=== PATIENT | male | born 1930 | race Caucasian/White ===

== ENCOUNTER 2017-02-24 06:31 | Inpatient (IN) ==
[~2017-02-24 06:31] MED LIST: GLYCOPYRROLATE 0.4 MG/2 ML VIAL IM ONE; LIDOCAINE 1% 20 ML VIAL MISC INJ PRN; MEPERIDINE 50 MG/1 ML VIAL IM ONE; MIDAZOLAM 2 MG/2 ML VIAL IV PRN; PROMETHAZINE 25 MG/1 ML VIAL IM ONE
[2017-02-24] MEDS ORDERED: MEPERIDINE 50 MG/1 ML VIAL ONE (07:19)
[2017-02-24] MEDS ORDERED: GLYCOPYRROLATE 0.4 MG/2 ML VIAL ONE (07:19)
[2017-02-24] MEDS ORDERED: PROMETHAZINE 25 MG/1 ML VIAL ONE (07:19)
[2017-02-24] MEDS ORDERED: EPINEPHrine 1 MG/10 ML SYRINGE ET ONE (08:40)
--- NOTE | 2017-02-24 08:57 | Operative Note ---
Date of procedure: 02/24/17 (Fiberoptic bronchoscopy with brushings and transbronchial biopsies left lower lobe) Pre-op diagnosis: Lung mass rule out carcinoma Post-op diagnosis: same Procedure: After an appropriate timeout to be sure we were dealing with Kelechi Gardner, the patient was topically anesthetized the nose and nasopharynx with Xylocaine. He had been given intramuscular preoperative medication in same day surgery. 3 L of nasal oxygen was placed in the right naris. The fiberoptic bronchoscope was introduced via the left naris. Patient was given 2 mg of Versed intravenously to the point of sedation. Vocal cords were identified and noted to function normally with phonation. After further topical anesthesia the trachea was entered and was free of lesions. The donald was sharp. There were some increased secretions in both lower lobes. These were irrigated and removed. I inspected the superior segments on both sides. The densities area on his CT was in the superior segment of the left lower lobe. We selected that side to do brushings. We obtained to brushings. We then did 2 transbronchial biopsies. After the second transbronchial biopsy there was a moderate amount of bleeding. We do scope to pressure, I saline, and topical epinephrine and got the bleeding to subside. However he was still coughing up some blood at the end of the procedure. For that reason we will admit him for observation. Patient was alert and answering questions and denied shortness of breath at the end of the procedure. Chest x-ray postprocedure showed the superior segment left lower lobe infiltrate to be larger. No other acute changes and no pneumothorax. Anesthesia: conscious sedation Surgeon / Physician: Oscar Aparicio Estimated blood loss: other (Moderate amount of bleeding post transbronchial biopsy) Specimens: other (Transbronchial biopsy 2 left lower lobe, bronchial washings, brushings left lower lobe) Condition: stable Disposition: ICU Discharge Plan - Discharge Medications No Action RX: Albuterol Inhaler [Proventil Inhaler] 2 puff INH Q4HR PRN PRN Reason: Shortness Of Breath RX: Ipratropium/Albuterol Sulfate [Iprat-Albut 0.5-3(2.5) mg/3 ml] 3 ml IH TID RX: [place]-3 Fatty Acids [Fish Oil Concentrate] 1,000 mg PO BID RX: Multivit-Min/FA/Lycopen/Lutein [Centrum Silver Tablet] 1 each PO DAILY RX: Gabapentin 300 mg PO BEDTIME RX: Famotidine 40 mg PO BEDTIME RX: Donepezil [Aricept] 10 mg PO BEDTIME RX: Aspirin [Ecotrin] 81 mg PO DAILY@1700 RX: Amiodarone Tab [Cordarone Tab] 200 mg PO DAILY RX: amLODIPine [Norvasc] 5 mg PO DAILY Areds11 1 tablet PO BID RX: Polyvinyl Alcohol 1.4% Oph Alva [Artificial Tears Oph Soln] 1 drop BOTH EYES QID PRN PRN Reason: Dry Eyes RX: Montelukast Sodium 10 mg PO DAILY Polycarbophil [Fibercon] 625 mg PO DAILY PRN PRN Reason: Constipation RX: Lutein 40 mg PO DAILY Budesonide/Formoterol 160-4.5 [Symbicort 160-4.5] 2 puff INH BID Acetaminophen Tab [Tylenol Tab] 500 mg PO 5X DAILY Melatonin/Pyridoxine HCl (B6) [Melatonin 3 mg Tablet] 2 each PO BEDTIME amLODIPine [Norvasc] 5 mg PO DAILY W/SUPPER Loratadine [Claritin] 10 mg PO DAILY RX: Furosemide Tab [Lasix Tab] 80 mg PO DAILY - Follow Up or Referral - Forms/Instructions
[2017-02-24] MEDS ORDERED: ACETAMINOPHEN 325 MG TABLET PO PRN (08:59)
[2017-02-24] MEDS ORDERED: ONDANSETRON 4 MG/2 ML VIAL IV PRN (08:59)
[2017-02-24] MEDS ORDERED: ALBUTEROL 2.5 MG/3 ML NEB RESP TX PRN (08:59)
[2017-02-24] MEDS ORDERED: guaiFENesin/DM ER 600-30 MG TABLET PO PRN (08:59)
--- NOTE | 2017-02-24 09:08 | Pulmonology History & Physical ---
Assessment and Plan (1) Bilateral lower lobe lung mass Status: Acute Assessment and plan: He was brought in for outpatient bronchoscopy with biopsy which was done on the left side. He had some hemoptysis following the procedure and were watching him for that reason. The lesion looks like a possible bronchogenic carcinoma on the CT scan. He also had an area on the right lung. This could be a bilateral pneumonia. Could be a bronchoalveolar cell. Await pathology. Current Visit: Yes (2) Hemoptysis secondary to biopsy Status: Acute Assessment and plan: At the present time this has subsided. Needs to be watched carefully however. Current Visit: Yes (3) Acute exacerbation of chronic obstructive airways disease Status: Acute Assessment and plan: Treat with bronchodilators and oxygen. Will put on empiric antibiotics. Current Visit: No (4) Pneumonia Status: Acute Assessment and plan: This started as what looked like pneumonia. Difficult to tell if this is an unresolved pneumonia versus lung mass. Current Visit: No (5) CKD (chronic kidney disease) stage 4, GFR 15-29 ml/min Status: Chronic Assessment and plan: We will get follow-up chemistries in the morning. Current Visit: No 12 point system: reviewed and no additional remarkable complaints except as stated - Constitutional Constitutional: Present: fatigue, weakness - EENT Ears: Present: decreased hearing (Wears hearing aid) - Cardiovascular Cardiovascular: Present: palpitations (Has atrial fibrillation) - Respiratory Respiratory: Present: dyspnea, hemoptysis, dyspnea on exertion - Genitourinary Genitourinary: Present: other (Renal insufficiency) History of Present Illness Chief complaint: Hemoptysis post-bronchoscopy History of present illness: Mr. Gardner is a 86 year old male was referred by Dr. De Anda because of unresolved bilateral lower lobe infiltrates that looks like possible carcinoma on CT scan. We brought him in for bronchoscopy this morning and he had 2 transbronchial biopsies of the superior segment of the left lower lobe. Following that he bled moderately. We were able to get the bleeding stopped with scope tip pressure, I saline, and topical epinephrine however he has an enlarged area of infiltrate in the left mid lung in the area of the superior segment and is still coughing up blood. I felt we should at least watch him overnight. He does have COPD with an FEV1 about one half normal. His oxygen saturation has been acceptable on 4 L nasal oxygen his O2 sat of about 93%. Patient is a former smoker. He quit smoking more than 10 years ago. He had been treated with Cipro for about a week. Off antibiotics at the present time. Patient has a pacemaker atrial fibrillation but he only takes baby aspirin not on any anticoagulants. Home Medications Medication Instructions Recorded Confirmed Type Albuterol Inhaler [Proventil 2 puff INH Q4HR PRN 12/22/15 02/24/17 History Inhaler] Amiodarone Tab [Cordarone Tab] 200 mg PO DAILY 12/22/15 02/24/17 History Aspirin [Ecotrin] 81 mg PO DAILY@1700 12/22/15 02/24/17 History Donepezil [Aricept] 10 mg PO BEDTIME 12/22/15 02/24/17 History Famotidine 40 mg PO BEDTIME 12/22/15 02/24/17 History Gabapentin 300 mg PO BEDTIME 12/22/15 02/24/17 History Ipratropium/Albuterol Sulfate 3 ml IH TID 12/22/15 02/24/17 History [Iprat-Albut 0.5-3(2.5) mg/3 ml] Multivit-Min/FA/Lycopen/Lutein 1 each PO DAILY 12/22/15 02/24/17 History [Centrum Silver Tablet] [place]-3 Fatty Acids [Fish Oil 1,000 mg PO BID 12/22/15 02/24/17 History Concentrate] Areds11 1 tablet PO BID 02/04/16 02/24/17 History Polyvinyl Alcohol 1.4% Oph Alva 1 drop BOTH EYES QID PRN 02/04/16 02/24/17 History [Artificial Tears Oph Soln] amLODIPine [Norvasc] 5 mg PO DAILY 02/04/16 02/24/17 History Budesonide/Formoterol 160-4.5 2 puff INH BID 10/05/16 02/24/17 History [Symbicort 160-4.5] Montelukast Sodium 10 mg PO DAILY 10/05/16 02/24/17 History Acetaminophen Tab [Tylenol Tab] 500 mg PO 5X DAILY 02/23/17 02/24/17 History Furosemide Tab [Lasix Tab] 80 mg PO DAILY 02/23/17 02/24/17 History Loratadine [Claritin] 10 mg PO DAILY 02/23/17 02/24/17 History Lutein 40 mg PO DAILY 02/23/17 02/24/17 History Melatonin/Pyridoxine HCl (B6) 2 each PO BEDTIME 02/23/17 02/24/17 History [Melatonin 3 mg Tablet] Polycarbophil [Fibercon] 625 mg PO DAILY PRN 02/23/17 02/24/17 History amLODIPine [Norvasc] 5 mg PO DAILY W/SUPPER 02/23/17 History Allergies Allergy/AdvReac Type Severity Reaction Status Date / Time No Known Allergies Allergy Verified 12/30/15 15:59 Medical,Surgical,& Family Hx - Medical History Cardio: History of: Cardiac Dysrhythmia (SLOW HEART BEAT.), Hypertension ([place]. MEDICALLY), Pacemaker, Cardiovascular Problems (AFIB HAD CARDIOVERSION IN 2013.DR MAURER) Psychological: History of: Anxiety Disorders ([place]. MEDICALLY), Depression No history of: ADHD, Behavior Problems, Bipolar Disorder, Previous Suicide Attempt, Psychiatric/Substance Abuse Tx, Schizophrenia, Violent Behavior, Psychiatric Problems Neurology: No history of: Seizures HEENT: History of: Ear Problem (hard of hearing), Eye Problem (CATARACTS REMOVED FROM BOTH EYES W/ LENS IMPLANTS.), HEENT Problems (MACULAR DEGENERATION) Respiratory: History of: COPD ([place]. INHALER AND NEBS.) Renal: History of: Renal Failure (HX), Renal Problems (CKD) Genitourinary: History of: Problems (urinary stricture) Gastrointestinal: History of: GI Problems (VA SAID HE HAD DIARRHEA AND IS ON LOMOTIL.) Musculoskeletal: History of: Back/Neck Problems, Degenerative Disk Disease No history of: Amputation Hematology: History of: Anemia - Surgical History Thoracic Surgeries: Patient denies;: Organ Transplant, Lobectomy Neurologic Surgeries: Patient denies: Neurologic Surgery HEENT Surgeries: Surgical HX of: Eye Surgery (CATARACT SURGERIES X 2.), Tonsilectomy & Adenoidectomy (60 YEARS AGO.) Patient denies: Thyroid Surgery Abdominal Surgeries: Surgical HX of: Appendectomy (JUN 2014. RUPTURE. SURGERY.) , Colonoscopy (NEGATIVE. SEVERAL YEARS AGO.) Reproductive Surgeries: Patient denies;: Genitourinary Surgery Orthopedic Surgeries: Patient denies;: Implanted Devices, Orthopedic Surgery, Spinal Surgery, Total Hip Replacement, Total Knee Replacement - Family History Family History: Reports;: Family Cancer (DAUGHTER HAS COLON CANCER, OVARIAN CANCER, LUNG CANCER BROTHERS.) Denies;: Family Anesthesia Reaction, Family Diabetes, Family Heart Disease, Family Hypertension, Family Psychiatric Problems, Family Stroke - Social History Smoking Status: Former smoker Frequency of Alcohol Use: None Type of Drug Use: None Quality Measures - VTE Contraindication to Pharmacological VTE Prophylaxis: Active Bleeding Exam (Pulmonay) H&P - Constitutional Vitals: Period Temp Pulse Resp BP Sys/Hackett Pulse Ox Last 24 Hr 97.8 F 60-67 17-20 158-181/76-84 94-98 Exam: Patient is alert although a little drowsy from his preoperative medication. Vital signs normal. O2 sat 93% on 4 L. Pupils react to light. Throat is clear. Neck is supple no bruits. Chest reveals some rhonchi at the left base and prolonged expiratory phase. Heart irregular without murmur. Abdomen soft nontender no masses. Extremities no clubbing cyanosis or edema. Calves nontender.
--- NOTE | 2017-02-24 09:18 | XRay Report ---
Portable chest Date: 02/24/2017 Clinical history: Post bronchoscopy Comparison: 02/04/2016 Technique: Portable AP sitting chest Findings: Stable cardiomegaly with left subclavian atrioventricular pacemaker. Irregular left hilar mass with adjacent diffuse parenchymal findings. Additional progressive parenchymal findings at the left lung base. Small right pleural effusion. No pneumothorax. Degenerative changes are noted. Impression: Stable cardiomegaly with left subclavian atrioventricular permanent pacemaker. Irregular 83 mm left hilar mass with adjacent atelectasis/infiltration. 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 Additional indeterminate diffuse parenchymal findings at the right lung base with small right pleural effusion. No pneumothorax. PROCEDURE INTERPRETED AT [facility] DEPARTMENT OF RADIOLOGY Final Report Signed by: Dr. Candace Chilel
[2017-02-24] MEDS ORDERED: MIDAZOLAM 2 MG/2 ML VIAL ONE (09:27)
[2017-02-24] MEDS: cefTRIAXone 1,000 MG in SODIUM CHLORIDE 0.9% 100 ML IV SCH (10:30)
[2017-02-24] MEDS: SODIUM CHLORIDE 0.45% 1,000 ML IV SCH (10:30)
[2017-02-24] MEDS ORDERED: EPINEPHrine 1 MG/ML VIAL ONE (10:32)
[2017-02-24] MEDS: ALBUTEROL/IPRATROPIUM 3 ML NEB RESP TX SCH ×3 (12:22→23:32)
[2017-02-24] MEDS: FAMOTIDINE 20 MG TABLET PO SCH (20:43)
[2017-02-24] MEDS: amLODIPine 5 MG TABLET PO SCH (20:43)
[2017-02-24] MEDS: BUDESONIDE/FORMOTEROL 160-4.5 INHALER 6 GM INH SCH (20:44)
[2017-02-25] MEDS: SODIUM CHLORIDE 0.45% 1,000 ML IV SCH (04:52)
[2017-02-25 05:57] LABS: Basophils % 0.4 % (0.0-0.8); Eosinophils # 0.1 10*3/uL (0.0-0.87); Eosinophils % 0.9 % (0.00-10.9); Hematocrit 31.1 VOL% (42.0-52.0); Hemoglobin 10.3 GM/DL (14.0-18.0); Immature Granulocytes % 0.6 %; Immature Granulocytes Absolute 0.06 #; Lymphocytes # 1.3 10*3/uL (1.4-4.0); Lymphocytes % 12.8 % (21.2-54.2); Mean Corpuscular HGB Conc 33.1 GM/DL (32-36); Mean Corpuscular Hemoglobin 29 PG (27-34); Mean Corpuscular Volume 88.1 FL (87-102); Monocytes # 0.7 10*3/uL (0.11-0.8); Monocytes % 7.3 % (1.7-12.7); Neutrophils # 7.8 10*3/uL (1.4-7.4); Platelet Count 199 T/CUMM (130-400); Red Blood Count 3.53 MC/CUMM (3.8-5.5); Red Cell Distribution Width 14.7 % (9.3-17.3)
[2017-02-25] MEDS: ALBUTEROL/IPRATROPIUM 3 ML NEB RESP TX SCH (06:34)
[2017-02-25 06:40] LABS: Calcium 8.5 MG/DL (8.5-10.1); Osmolality,Calculated 287.3 MOS/KG (273-304); Potassium 4.2 MMOL/L (3.5-5.1)
--- NOTE | 2017-02-25 07:58 | Pulmonology Progress Note ---
Pulmonary - PN: Subj Interval history: This 86-year-old white male who had a fiberoptic bronchoscopy on 02/24/2017. Dr. Aparicio did transbronchial biopsies and the patient had problems with bleeding. As a precaution he was kept overnight. He has had no more bleeding he is done well and his chest x-ray is stable. Patient is asymptomatic and he wants to go home. Patient was covered with Rocephin and Zosyn post bronchoscopy. I am going to send him home on Keflex 500 4 times daily for 5 days. Patient will have follow-up appointment with Dr. Aparicio. He will continue his home medicines per Exam (Progress Note) - Constitutional Vitals: Period Temp Pulse Resp BP Sys/Hackett Pulse Ox Last 24 Hr 97.8 F-99.0 F 60-87 13-24 153-188/55-101 90-100 Results - Labs CBC & BMP: 02/25/17 05:07 02/25/17 05:07
[2017-02-25] MEDS: amLODIPine 5 MG TABLET PO SCH (08:25)
[2017-02-25] MEDS: BUDESONIDE/FORMOTEROL 160-4.5 INHALER 6 GM INH SCH (08:25)
[2017-02-25] MEDS: FAMOTIDINE 20 MG TABLET PO SCH (08:25)
[2017-02-25] MEDS: cefTRIAXone 1,000 MG in SODIUM CHLORIDE 0.9% 100 ML IV SCH (08:30)
[2017-02-25] MEDS ORDERED: DONEPEZIL 10 MG TABLET PO SCH (09:00)
[2017-02-25] MEDS ORDERED: AMIODARONE 200 MG TABLET PO SCH (09:00)
[2017-02-25] MEDS ORDERED: GABAPENTIN 300 MG CAPSULE PO SCH (09:00)
--- NOTE | 2017-02-25 10:06 | XRay Report ---
Exam: XR chest 1V portable Indication: Shortness of breath Comparison study: - 8:40 AM Findings: Cardiac silhouette is mildly enlarged, similar to prior. Left perihilar opacities likely representing focal pneumonia are similar. There are also patchy basilar opacities which appear similar to prior. Left chest pacemaker device is in similar position. There is no pneumothorax. Impression: Overall similar appearance of the chest with probable patchy left perihilar and right basilar infectious/inflammatory infiltrates. Underlying soft tissue lesions (especially in the left hilar region) are difficult to exclude. Follow-up until resolution is recommended. PROCEDURE INTERPRETED AT [facility] DEPARTMENT OF RADIOLOGY Final Report Signed by: Jerod Hernandez
[2017-02-25 10:07] VITALS: BP 167/64
--- NOTE | 2017-02-27 12:15 | Pathology Report from [facility] ---
[facility] ACCESSION # : [id number] PATIENT NAME : Kelechi Gardner ORDERING DR : FOSTER MARTELL MD CLINICAL HX: Lung Mass, COPD POST-OP DX: Same SPECIMEN INFO: Washing,Bronchial,LLL - 5 mls bloody with clots CLASS: III CLASS COMMENTS: Reactive respiratory cells and some atypical cellsCELL BLOCK: Same CLASS LEGEND: CLASS 0 Material inadequate for diagnosis because of (see comment) CLASS I Absence of atypical or abnormal cells CLASS II Atypical Cytology but no evidence of malignancy CLASS III Cytology suggestive of but not conclusive for malignancy CLASS IV Cytology strongly suggestive of malignancy CLASS V Cytology conclusive for malignancy COLLECTED DATE: 02/24/2017 [facility] REPORT DATE: 02/27/2017 ELECTRONICALLY SIGNED BY: Marisol Garcia M.D. 02/27/2017 - 9:09:24 KATHYA
--- NOTE | 2017-02-27 12:16 | Pathology Report from [facility] ---
[facility] ACCESSION # : [id number] PATIENT NAME : Kelechi Gardner ORDERING DR : FOSTER MARTELL MD CLINICAL HX: Lung Mass, COPD POST-OP DX: Same SPECIMEN INFO: Brushing,Brocnhial,LLL - 2 brushes (Received in Cytolyt). CLASS: II CLASS COMMENTS: Reactive respiratory cellsCELL BLOCK: Same CLASS LEGEND: CLASS 0 Material inadequate for diagnosis because of (see comment) CLASS I Absence of atypical or abnormal cells CLASS II Atypical Cytology but no evidence of malignancy CLASS III Cytology suggestive of but not conclusive for malignancy CLASS IV Cytology strongly suggestive of malignancy CLASS V Cytology conclusive for malignancy COLLECTED DATE: 02/24/2017 [facility] REPORT DATE: 02/27/2017 ELECTRONICALLY SIGNED BY: Marisol Garcia M.D. 02/27/2017 - 9:13:20 MTDVickie
--- NOTE | 2017-02-27 16:17 | Pathology Report from [facility] ---
[facility] ACCESSION # : [id number] PATIENT NAME : Terrence Gardner ORDERING DR : FOSTER MARTELL MD CLINICAL HX: Lung mass - COPD POST-OP DX: Same SPECIMEN INFO: Left lower lobe lung, biopsy x 2 GROSS DESCRIPTION: Received in formalin labeled TERRENCE GARDNER & LLL is a 0.3 x 0.2 cm hyperemic coleman tissue fragment submitted in one cassette. DIAGNOSIS FOR TERRENCE GARDNER: LUNG, LEFT LOWER LOBE, ENDOBRONCHIAL BIOPSY: Benign alveolar lung tissue, no tumor seen. COLLECTED DATE: 02/26/2017 [facility] REPORT DATE: 02/27/2017 ELECTRONICALLY SIGNED BY: Joao Chew M.D. 02/27/2017 - 9:39:30 [facility]
== END 2017-02-25 10:37 | disposition home or self-care (01) | DRG 166 ==
LOC: N.SDSINP 06:31 → N.PULM 06:31 → N.SDSINP 09:00 → N.CC 09:25 → EDSDCBED 09:25 → N.PULM 02-25 10:37 → UNDODEPSDC 02-27 16:00
PROVIDERS: ADMIT Internal Medicine Pulmonary Disease; ATTEND Internal Medicine Pulmonary Disease
PROC: BRONCHB (2017-02-24 07:20)

== ENCOUNTER 2017-04-17 09:08 | Inpatient (IN) ==
[~2017-04-17 09:08] MED LIST changes: -GLYCOPYRROLATE 0.4 MG/2 ML VIAL IM ONE; -LIDOCAINE 1% 20 ML VIAL MISC INJ PRN; +LIDOCAINE 100 MG/5 ML SYRINGE ONE; -MEPERIDINE 50 MG/1 ML VIAL IM ONE; -MIDAZOLAM 2 MG/2 ML VIAL IV PRN; -PROMETHAZINE 25 MG/1 ML VIAL IM ONE; +PROPOFOL 200 MG/20 ML VIAL IV ONE
[2017-04-17] MEDS ORDERED: ALBUTEROL/IPRATROPIUM 3 ML NEB RESP TX STA (09:21)
[2017-04-17] MEDS ORDERED: methylPREDNISolone SOD SUC 125 MG/2 ML VIAL IV STA (09:21)
[2017-04-17] MEDS ORDERED: methylPREDNISolone SOD SUC 125 MG/2 ML VIAL ONE (09:42)
--- NOTE | 2017-04-17 10:08 | Emergency Department Note ---
Kirt Nuñez Brooke, am scribing for, and in the presence of, Elio Fernandez MD 09:26 . Rebecca Nuñez James D, MD, personally performed the services described in this documentation, ascribed by Caitlin Moralez in my presence, and it is both accurate and complete 927 . Arrival - Arrival Chief Complaint: Shortness of Breath Stated Complaint: SOB ED Nursing Triage Note: Pt c/o SOB since Mode of Arrival: Wheelchair Limitations: No Limitations Source: Patient, Family, RN Notes Reviewed Time Seen by Provider: 04/17/17 09:19 - History of Present Illness HPI Narrative: Patient is a 86 year old male who presents to the ED with c/o shortness of breath that has been ongoing for the past three days. Patient says the shortness of breath has worsened. He has home oxygen that he uses at night. Patient denies having any fever, cough, or chest pain. He saw his Primary Care Provider, on , and was given a shot and prescription for Cipro to treat bronchitis. Patient has PMHx of afib, HTN, pacemaker, anxiety, depression, COPD , pneumonia(three months ago), renal failure, urinary stricture, CKD, arthritis , GERD, anemia, back/neck problems, and degenerative disk disease. Patient's Final Inspection Supervisor is Dr. Maurer. He quit smoking about 15 years ago. Onset (ago): day(s) (3) Allergies/Adverse Reactions: Allergies Allergy/AdvReac Type Severity Reaction Status Date / Time No Known Allergies Allergy Verified 12/30/15 15:59 Home Medications: Home Medications Medication Instructions Recorded Confirmed Type Amiodarone Tab [Cordarone Tab] 200 mg PO DAILY 12/22/15 04/17/17 History Donepezil [Aricept] 10 mg PO BEDTIME 12/22/15 04/17/17 History Famotidine 40 mg PO BEDTIME 12/22/15 04/17/17 History Gabapentin 300 mg PO BEDTIME 12/22/15 04/17/17 History [place]-3 Fatty Acids [Fish Oil 500 mg PO BID 12/22/15 04/17/17 History Concentrate] Polyvinyl Alcohol 1.4% Oph Alva 1 drop BOTH EYES QID PRN 02/04/16 04/17/17 History [Artificial Tears Oph Soln] amLODIPine [Norvasc] 5 mg PO BID 02/04/16 04/17/17 History Budesonide/Formoterol 160-4.5 2 puff INH BID 10/05/16 04/17/17 History [Symbicort 160-4.5] Montelukast Sodium 10 mg PO DAILY 10/05/16 04/17/17 History Furosemide Tab [Lasix Tab] 40 mg PO DAILY 02/23/17 04/17/17 History Lutein 40 mg PO BEDTIME 02/23/17 04/17/17 History Melatonin/Pyridoxine HCl (B6) 2 each PO BEDTIME 02/23/17 04/17/17 History [Melatonin 3 mg Tablet] Polycarbophil [Fibercon] 625 mg PO DAILY PRN 02/23/17 04/17/17 History Aspirin [Ecotrin] 81 mg PO BEDTIME 04/17/17 04/17/17 History Ciprofloxacin Tab [Cipro Tab] 250 mg PO BID 04/17/17 04/17/17 History Ipratropium/Albuterol Sulfate 3 ml IH TID 04/17/17 04/17/17 History [Iprat-Albut 0.5-3(2.5) mg/3 ml] Loratadine Tab [Claritin Tab] 10 mg PO DAILY 04/17/17 04/17/17 History Multivitamin with Iron 1 each PO DAILY 04/17/17 04/17/17 History [Multivitamins with Iron] Mv-Min/FA/Vit K/Lycop/Lut/Zeax 1 each PO BID 04/17/17 04/17/17 History [Ocuvite Eye + Multi Tablet] Review of System - Review of System 12 point system: reviewed and no additional remarkable complaints except as stated - Review of System Constitutional: Absent: fever Respiratory: Present: other (shortness of breath). Absent: cough, respiratory distress Cardiovascular: Absent: chest pain Skin: Absent: rash Medical,Surgical,& Family Hx - Medical History Cardio: History of: Cardiac Dysrhythmia (SLOW HEART BEAT.), Hypertension ([place]. MEDICALLY), Pacemaker, Cardiovascular Problems (AFIB HAD CARDIOVERSION IN 2013.DR MAURER) Psychological: History of: Anxiety Disorders ([place]. MEDICALLY), Depression No history of: ADHD, Behavior Problems, Bipolar Disorder, Previous Suicide Attempt, Psychiatric/Substance Abuse Tx, Schizophrenia, Violent Behavior, Psychiatric Problems Neurology: No history of: Seizures HEENT: History of: Ear Problem (hard of hearing), Eye Problem (CATARACTS REMOVED FROM BOTH EYES W/ LENS IMPLANTS.), HEENT Problems (MACULAR DEGENERATION) Rheumatology: History of;: Rheumatological Problems (Arthritis) Respiratory: History of: COPD ([place]. INHALER AND NEBS.), Pneumonia, Respiratory Problems (Bronch with lung Bx) Renal: History of: Renal Failure (HX), Renal Problems (CKD) Genitourinary: History of: Problems (urinary stricture) Gastrointestinal: History of: GERD, GI Problems ([place] SAID HE HAD DIARRHEA AND IS ON LOMOTIL.) Musculoskeletal: History of: Back/Neck Problems, Degenerative Disk Disease No history of: Amputation Hematology: History of: Anemia - Surgical History Thoracic Surgeries: Patient denies;: Organ Transplant, Lobectomy Neurologic Surgeries: Patient denies: Neurologic Surgery HEENT Surgeries: Surgical HX of: Eye Surgery (CATARACT SURGERIES X 2.), Tonsilectomy & Adenoidectomy (60 YEARS AGO.) Patient denies: Thyroid Surgery Abdominal Surgeries: Surgical HX of: Appendectomy (JUN 2014. RUPTURE. SURGERY.) , Colonoscopy (NEGATIVE. SEVERAL YEARS AGO.), EGD Reproductive Surgeries: Patient denies;: Genitourinary Surgery Orthopedic Surgeries: Patient denies;: Implanted Devices, Orthopedic Surgery, Spinal Surgery, Total Hip Replacement, Total Knee Replacement - Family History Family History: Reports;: Family Cancer (DAUGHTER HAS COLON CANCER, OVARIAN CANCER, LUNG CANCER BROTHERS.) Denies;: Family Anesthesia Reaction, Family Diabetes, Family Heart Disease, Family Hypertension, Family Psychiatric Problems, Family Stroke - Social History Smoking Status: Former smoker Exam Vital Signs: Vital Signs Temperature 97.5 F L 04/17/17 09:20 Pulse Rate 60 04/17/17 10:30 Respiratory Rate 23 04/17/17 10:30 Blood Pressure 169/54 04/17/17 10:30 O2 Sat by Pulse Oximetry 96 04/17/17 10:30 GENERAL: This is a well-nourished well-developed white male, chronically and acutely ill-appearing, in no apparent distress. VITAL SIGNS: Reviewed HEENT: Head is atraumatic and normocephalic. Pupils are equal round react to light. Extraocular movements are intact. Oropharynx is benign with moist mucous membranes. NECK: Neck is soft and supple without tenderness. There are no masses. There is no lymphadenopathy. LUNGS: Decreased breath sounds in all lung villegas with prolonged expiratory phase. Patient has supraclavicular, intercostal, and substernal retractions. Chest rises symmetrically. There is no chest wall tenderness. CV: Heart is regular rate and rhythm without murmurs rubs or gallops. ABDOMEN: Abdomen is soft, nontender to palpation. There are no abdominal abnormal masses palpated. There is no organomegaly. Bowel sounds are present and active. SKIN: Skin is warm and dry. No rash. EXTREMITIES: Patient has full range of motion without tenderness. There is no pedal edema. NEUROLOGIC: Awake alert and oriented 4. Cranial nerves II through XII are grossly intact. Motor is 5 over 5 in all extremities bilaterally. Course Course Narrative: Patient was placed on O2, 2 L nasal biprong, given an albuterol nebulization, and given Solu-Medrol IV upon arrival. The patient seemed to have some improvement. - Consultations Consultation #1: Discussed with hospitalist. Patient will be admitted to their service. Time: 10:48 Procedures - ABG Interpretation ABG Interpretation 1 Interpretation: abnormal, other (Acute respiratory failure) Results - Labs CBC & BMP: 04/17/17 09:22 04/17/17 09:22 Lab Results: I have reviewed the patients labs Labs: Laboratory Tests 04/17/17 04/17/17 09:21 09:22 ABG pH 7.382 ABG pCO2 32.5 L ABG pO2 65.8 L ABG HCO3 20.3 ABG Total CO2 17.1 L ABG O2 Saturation 93.3 L ABG Base Excess -4.9 L Troponin I < 0.015 - EKG EKG results: interpreted by ERMD - Impressions EKG: Electronic atrial pacemaker with a rate of 63, nonspecific ST-T wave changes, normal axis. - Diagnostic Findings Procedure: Chest x-ray: image reviewed by me (Right pleural effusion, increased pulmonary markings bilaterally) Disposition Clinical Impression: Dyspnea, COPD (chronic obstructive pulmonary disease), Recurrent right pleural effusion Case discussed with: patient Disposition: Still a Patient
[2017-04-17 10:14] LABS: ABG Base Excess -4.9 MMOL/L (-2.5-2.5); ABG HCO3 20.3 MMOL/L (20-26); ABG Oxygen Saturation 93.3 % (95-100); ABG PCO2 32.5 MM HG (35-48); ABG PH 7.382 (7.35-7.45); ABG PO2 65.8 MM HG (80-95); ABG TCO2 17.1 MMOL/L (23-27)
[2017-04-17 10:16] LABS: Basophils # 0.1 10*3/uL (0.0-0.2); Basophils % 0.6 % (0.0-0.8); Eosinophils # 0.1 10*3/uL (0.0-0.87); Eosinophils % 0.9 % (0.00-10.9); Hematocrit 38.3 VOL% (42.0-52.0); Hemoglobin 12.7 GM/DL (14.0-18.0); Immature Granulocytes % 0.7 %; Immature Granulocytes Absolute 0.07 #; Lymphocytes # 0.9 10*3/uL (1.4-4.0); Lymphocytes % 8.9 % (21.2-54.2); Mean Corpuscular HGB Conc 33.2 GM/DL (32-36); Mean Corpuscular Hemoglobin 30 PG (27-34); Mean Corpuscular Volume 88.9 FL (87-102); Mean Platelet Volume 9.3 FL (9.6-12.0); Monocytes # 0.8 10*3/uL (0.11-0.8); Monocytes % 8.2 % (1.7-12.7); Neutrophils # 7.8 10*3/uL (1.4-7.4); Neutrophils % 80.7 % (38.7-73.9); Platelet Count 242 T/CUMM (130-400); Red Blood Count 4.31 MC/CUMM (3.8-5.5); Red Cell Distribution Width 14.2 % (9.3-17.3); White Blood Count 9.7 T/CUMM (4-12)
[2017-04-17 10:22] LABS: PT Patient Result 10.8 SECS
--- NOTE | 2017-04-17 10:24 | XRay Report ---
XR chest 1V portable Indication: Shortness of breath Comparison: February 28 2017 Findings: The heart and mediastinum are similar in size and configuration. Pacemaker device is unchanged in position. The pulmonary vascularity is increased similar to previous exam. There is increased right lower lung density and effusion. There is increased left midlung density. No other lung infiltrates, effusions, pneumothorax or other abnormality is demonstrated. Impression: Increasing right lower lung density and increased left midlung density when compared to previous study. PROCEDURE INTERPRETED AT [facility] Final Report Signed by: Dr. Leif Alvarez
[2017-04-17 10:32] LABS: Alanine Aminotransferase 22 U/L (16-61); Albumin 3.3 G/DL (3.4-5.0); Alkaline Phosphatase 136 U/L (45-117); Aspartate Amino Transferase 31 U/L (0-37); Blood Urea Nitrogen 51 MG/DL (7-18); Calcium 9.6 MG/DL (8.5-10.1); Glucose 120 MG/DL (74-106); Magnesium 2.5 MG/DL (1.8-2.4); Osmolality,Calculated 293.4 MOS/KG (273-304); Potassium 4.7 MMOL/L (3.5-5.1); Sodium 140 MMOL/L (136-145); Total Protein 8.7 G/DL (6.4-8.3); Troponin I Only < 0.015 NG/ML (0.00-0.045)
--- NOTE | 2017-04-17 11:41 | Hospitalist History & Physical ---
Assessment and Plan (1) Dyspnea Status: Acute Assessment and plan: Chest x-ray significant for right pleural effusion and increased pulmonary markings bilaterally. Patient has chronic right-sided pleural effusion. I suspect that this is the culprit. We will consult pulmonology to evaluate and assist during the clinical encounter. He will probably need a thoracentesis. Current Visit: Yes (2) Recurrent right pleural effusion Status: Acute Assessment and plan: Chest x-ray significant for right pleural effusion and increased pulmonary markings bilaterally. Patient has chronic right-sided pleural effusion. I suspect that this is the culprit. We will consult pulmonology to evaluate and assist during the clinical encounter. He will probably need a thoracentesis. Current Visit: Yes (3) Acute on chronic renal failure Status: Acute Assessment and plan: Patient's BUN and creatinine noted at 51 and 3.20. Upon review of the patient' s medical records, during the last clinical encounter which was noted on January the patient's BUN and creatinine were noted at 82/4.92. This is a modest improvement; however we will monitor closely. Current Visit: No Qualifiers: Chronic kidney disease stage: stage 3 (moderate) History of Present Illness Chief complaint: Shortness of breath History of present illness: This is a chronically ill 86-year-old male that presented to the ED at [facility] this morning for evaluation of shortness of breath. Patient has a medical history significant for atrial fibrillation, hypertension , anxiety, depression, chronic obstructive pulmonary disease, pneumonia, urinary stricture, chronic kidney disease, arthritis, macular degeneration, anemia, degenerative disc disease, remote nicotine abuse, gastroesophageal reflux disease. Patient has surgical history significant for cataract removal, tonsillectomy, adenoidectomy, appendectomy, colonoscopy, and pacemaker placement. The patient reports the onset of symptoms 4 days prior to presentation. The patient report reports that he is normally short of breath however his shortness of breath has worsened. He reported that he was seen by his primary care physician on . During that encounter, the patient reports that he was given a shot of prescription for oral ciprofloxacin to treat probable bronchitis. He reports no improvement since his visit with his primary care physician. He contacted his son this morning who subsequently transported him to the ED for further evaluation. The patient was assessed at the time of ED presentation. The patient's blood pressure was noted at 169/54. He was noted to have an increase in his respiratory effort; inhaled bronchodilator treatments were initiated immediately. Labs were obtained; complete blood count reported white blood cell count at 9.7, hemoglobin 12.7, hematocrit 38.3, platelet count 242. Coagulation panel reported INR at 1.0, PT 10.8, PTT 30.0. Arterial blood gas reported pH is 7.32, PCO2 32.5, PO2 65.8, HCO3 20.3. Compressive metabolic profile reported sodium at 140, potassium 4.7, chloride 110, carbon dioxide 21, BUN 51, creatinine 3.20, glucose 120, calcium 9.6, magnesium 2.5, total bilirubin 0.50, AST 31, ALT 22, total protein 8.7, albumin 3.3, alkaline phosphatase 136. Cardiac enzymes reported a troponin at less than 0.015 and BNP at 97. Chest x-ray reported increasing right lower lung density and increased mid lung density. After brief discussion with both and Dr. Velásquez; the patient will be admitted to the hospitalist services for continuation of care. Due to the complexity of the patient's respiratory status, we will consult pulmonology to assist during the clinical encounter. Home medications have been reviewed and reconciled. CODE STATUS has been discussed; patient is a FULL CODE. Home Medications Medication Instructions Recorded Confirmed Type Amiodarone Tab [Cordarone Tab] 200 mg PO DAILY 12/22/15 04/17/17 History Donepezil [Aricept] 10 mg PO BEDTIME 12/22/15 04/17/17 History Famotidine 40 mg PO BEDTIME 12/22/15 04/17/17 History Gabapentin 300 mg PO BEDTIME 12/22/15 04/17/17 History [place]-3 Fatty Acids [Fish Oil 500 mg PO BID 12/22/15 04/17/17 History Concentrate] Polyvinyl Alcohol 1.4% Oph Alva 1 drop BOTH EYES QID PRN 02/04/16 04/17/17 History [Artificial Tears Oph Soln] amLODIPine [Norvasc] 5 mg PO BID 02/04/16 04/17/17 History Budesonide/Formoterol 160-4.5 2 puff INH BID 10/05/16 04/17/17 History [Symbicort 160-4.5] Montelukast Sodium 10 mg PO DAILY 10/05/16 04/17/17 History Furosemide Tab [Lasix Tab] 40 mg PO DAILY 02/23/17 04/17/17 History Lutein 40 mg PO BEDTIME 02/23/17 04/17/17 History Melatonin/Pyridoxine HCl (B6) 2 each PO BEDTIME 02/23/17 04/17/17 History [Melatonin 3 mg Tablet] Polycarbophil [Fibercon] 625 mg PO DAILY PRN 02/23/17 04/17/17 History Aspirin [Ecotrin] 81 mg PO BEDTIME 04/17/17 04/17/17 History Ciprofloxacin Tab [Cipro Tab] 250 mg PO BID 04/17/17 04/17/17 History Ipratropium/Albuterol Sulfate 3 ml IH TID 04/17/17 04/17/17 History [Iprat-Albut 0.5-3(2.5) mg/3 ml] Loratadine Tab [Claritin Tab] 10 mg PO DAILY 04/17/17 04/17/17 History Multivitamin with Iron 1 each PO DAILY 04/17/17 04/17/17 History [Multivitamins with Iron] Mv-Min/FA/Vit K/Lycop/Lut/Zeax 1 each PO BID 04/17/17 04/17/17 History [Ocuvite Eye + Multi Tablet] Allergies Allergy/AdvReac Type Severity Reaction Status Date / Time No Known Allergies Allergy Verified 12/30/15 15:59 Medical,Surgical,& Family Hx - Medical History Cardio: History of: Cardiac Dysrhythmia (SLOW HEART BEAT.), Hypertension ([place]. MEDICALLY), Pacemaker, Cardiovascular Problems (AFIB HAD CARDIOVERSION IN 2013.DR MAURER) Psychological: History of: Anxiety Disorders ([place]. MEDICALLY), Depression No history of: ADHD, Behavior Problems, Bipolar Disorder, Previous Suicide Attempt, Psychiatric/Substance Abuse Tx, Schizophrenia, Violent Behavior, Psychiatric Problems Neurology: No history of: Seizures HEENT: History of: Ear Problem (hard of hearing), Eye Problem (CATARACTS REMOVED FROM BOTH EYES W/ LENS IMPLANTS.), HEENT Problems (MACULAR DEGENERATION) Rheumatology: History of;: Rheumatological Problems (Arthritis) Respiratory: History of: COPD ([place]. INHALER AND NEBS.), Pneumonia, Respiratory Problems (Bronch with lung Bx) Renal: History of: Renal Failure (HX), Renal Problems (CKD) Genitourinary: History of: Problems (urinary stricture) Gastrointestinal: History of: GERD, GI Problems (VA SAID HE HAD DIARRHEA AND IS ON LOMOTIL.) Musculoskeletal: History of: Back/Neck Problems, Degenerative Disk Disease No history of: Amputation Hematology: History of: Anemia - Surgical History Thoracic Surgeries: Patient denies;: Organ Transplant, Lobectomy Neurologic Surgeries: Patient denies: Neurologic Surgery HEENT Surgeries: Surgical HX of: Eye Surgery (CATARACT SURGERIES X 2.), Tonsilectomy & Adenoidectomy (60 YEARS AGO.) Patient denies: Thyroid Surgery Abdominal Surgeries: Surgical HX of: Appendectomy (JUN 2014. RUPTURE. SURGERY.) , Colonoscopy (NEGATIVE. SEVERAL YEARS AGO.), EGD Reproductive Surgeries: Patient denies;: Genitourinary Surgery Orthopedic Surgeries: Patient denies;: Implanted Devices, Orthopedic Surgery, Spinal Surgery, Total Hip Replacement, Total Knee Replacement - Family History Family History: Reports;: Family Cancer (DAUGHTER HAS COLON CANCER, OVARIAN CANCER, LUNG CANCER BROTHERS.) Denies;: Family Anesthesia Reaction, Family Diabetes, Family Heart Disease, Family Hypertension, Family Psychiatric Problems, Family Stroke - Social History Smoking Status: Former smoker 12 point system: reviewed and no additional remarkable complaints except as stated Exam - Constitutional Vitals: Period Temp Pulse Resp BP Sys/Hackett Pulse Ox Last 24 Hr 97.5 F-97.5 F 60-65 20-30 154-218/49-96 91-96 General appearance: normal weight, mild distress - Head Head exam: Present: normal inspection, normocephalic, atraumatic - Eye Eye exam: Present: EOMI Pupils: Present: SOLOMON, normal accommodation - ENT ENT exam: Present: normal exam, normal external ear exam, normal oropharynx - Neck Neck exam: Present: normal inspection. Absent: lymphadenopathy, meningismus, tenderness, thyromegaly - Respiratory Respiratory exam: Present: accessory muscle use, decreased breath sounds ( Bilateral lower lobes) - Cardiovascular Cardiovascular exam: Present: regular rate and rhythm. Absent: carotid bruit, diastolic murmur, gallop, JVD, rubs, systolic murmur - GI/Abdominal GI/Abdominal exam: Present: normal bowel sounds, soft - Extremities Exam Extremities exam: Present: normal inspection, normal capillary refill, full ROM. Absent: edema - Back Exam Back exam: Present: normal inspection - Neurological Exam Neurological exam: Present: alert, oriented X3, CN II-XII intact - Psychiatric Psychiatric exam: Present: normal affect, normal mood - Skin Skin exam: Present: normal color, warm, dry Results - Labs CBC & BMP: 04/17/17 09:22 04/17/17 09:22 Lab Results: I have reviewed the past 24 hour labs
[2017-04-17] MEDS ORDERED: ALBUTEROL 2.5 MG/3 ML NEB RESP TX PRN (12:11)
[2017-04-17] MEDS ORDERED: methylPREDNISolone SOD SUC 40 MG/1 ML VIAL IV SCH (12:30)
[2017-04-17] MEDS: ALBUTEROL/IPRATROPIUM 3 ML NEB RESP TX SCH ×2 (13:45→19:14)
[2017-04-17] MEDS ORDERED: LEVOFLOXACIN INJ 750 MG in PREMIX 1 EACH IV ONE (15:00)
--- NOTE | 2017-04-17 15:14 | Pulmonology Consult Note ---
Assessment and Plan (1) Pneumonia Status: Acute Assessment and plan: Patient may have some left lower lobe pneumonia but this may be a cancer also. He will be covered with antibiotics. Current Visit: No (2) Hypertension Status: Chronic Assessment and plan: Patient will continue treatment for high blood pressure. Current Visit: No (3) CKD (chronic kidney disease) stage 4, GFR 15-29 ml/min Status: Chronic Assessment and plan: His creatinine is up to 3.2. Current Visit: No (4) Bilateral lower lobe lung mass Status: Acute Assessment and plan: The patient has multiple nodules and the left lower lobe density along with a right pleural effusion. He certainly may have a malignancy. Current Visit: No (5) COPD (chronic obstructive pulmonary disease) Status: Acute Assessment and plan: We will continue treating his COPD. Current Visit: Yes (6) Recurrent right pleural effusion Status: Acute Assessment and plan: Patient will probably need a thoracentesis. Current Visit: Yes History of Present Illness Chief complaint: Shortness of breath History of present illness: Mr. Gardner is a 86 year old white male has a history of having COPD along with hypertension and atrial fibrillation. He has arthritis and chronic renal disease. He came in with several days of increasing shortness of breath. He says he does have some chest tightness but is not coughing up much sputum. He has had low-grade fever. He said he went to last and got some antibiotics and an injection. He has not gotten any better so he comes in today. He apparently has had some problems with a pleural effusion in the past. He says is not really had any heart disease other than arrhythmias and a pacemaker. He is a former smoker. The patient did have a bronchoscope and biopsy in February. Results were negative so far. Home Medications Medication Instructions Recorded Confirmed Type Amiodarone Tab [Cordarone Tab] 200 mg PO DAILY 12/22/15 04/17/17 History Donepezil [Aricept] 10 mg PO BEDTIME 12/22/15 04/17/17 History Famotidine 40 mg PO BEDTIME 12/22/15 04/17/17 History Gabapentin 300 mg PO BEDTIME 12/22/15 04/17/17 History [place]-3 Fatty Acids [Fish Oil 500 mg PO BID 12/22/15 04/17/17 History Concentrate] Polyvinyl Alcohol 1.4% Oph Alva 1 drop BOTH EYES QID PRN 02/04/16 04/17/17 History [Artificial Tears Oph Soln] amLODIPine [Norvasc] 5 mg PO BID 02/04/16 04/17/17 History Budesonide/Formoterol 160-4.5 2 puff INH BID 10/05/16 04/17/17 History [Symbicort 160-4.5] Montelukast Sodium 10 mg PO DAILY 10/05/16 04/17/17 History Furosemide Tab [Lasix Tab] 40 mg PO DAILY 02/23/17 04/17/17 History Lutein 40 mg PO BEDTIME 02/23/17 04/17/17 History Melatonin/Pyridoxine HCl (B6) 6 mg PO BEDTIME 02/23/17 04/17/17 History [Melatonin 3 mg Tablet] Polycarbophil [Fibercon] 625 mg PO DAILY PRN 02/23/17 04/17/17 History Aspirin [Ecotrin] 81 mg PO BEDTIME 04/17/17 04/17/17 History Ciprofloxacin Tab [Cipro Tab] 250 mg PO BID 04/17/17 04/17/17 History Ipratropium/Albuterol Sulfate 3 ml IH TID 04/17/17 04/17/17 History [Iprat-Albut 0.5-3(2.5) mg/3 ml] Loratadine Tab [Claritin Tab] 10 mg PO DAILY 04/17/17 04/17/17 History Multivitamin with Iron 1 each PO DAILY 04/17/17 04/17/17 History [Multivitamins with Iron] Mv-Min/FA/Vit K/Lycop/Lut/Zeax 1 each PO BID 04/17/17 04/17/17 History [Ocuvite Eye + Multi Tablet] Allergies Allergy/AdvReac Type Severity Reaction Status Date / Time No Known Allergies Allergy Verified 12/30/15 15:59 - Constitutional Constitutional: Present: chills, fatigue, fever(s). Absent: weight loss - EENT Eyes: Absent: loss of vision Ears: Present: decreased hearing Nose, mouth and throat: Absent: dysphagia, headache(s), sinus pressure - Cardiovascular Cardiovascular: Present: dyspnea, palpitations. Absent: chest pain at rest, chest pain with activity, PND - Respiratory Respiratory: Present: cough, dyspnea, wheezing. Absent: hemoptysis, pain on inspiration - Gastrointestinal Gastrointestinal: Absent: abdominal pain, change in bowel habits, dysphagia, nausea, vomiting - Genitourinary Genitourinary: Absent: difficulty urinating, dysuria, hematuria - Musculoskeletal Musculoskeletal: Present: arthralgias, back pain - Neurological Neurological: Absent: abnormal speech, focal weakness, paresthesias Exam (Pulmonay) H&P - Constitutional Vitals: Period Temp Pulse Resp BP Sys/Hackett Pulse Ox Last 24 Hr 97.5 F-97.8 F 60-74 18-30 154-218/49-96 91-98 General appearance: normal weight, no acute distress (He is sitting up on low- flow oxygen and looks comfortable. He says he feels better.) - Head Head exam: Present: normal inspection, normocephalic - Eye Eye exam: Present: EOMI. Absent: scleral icterus Pupils: Present: SOLOMON - ENT ENT exam: Present: normal exam - Neck Neck exam: Present: normal inspection. Absent: lymphadenopathy, thyromegaly - Respiratory Respiratory exam: Present: decreased breath sounds (He does have decreased breath sounds in the right base.), prolonged expiratory phase, rhonchi. Absent : wheezes - Cardiovascular Cardiovascular exam: Present: irregular rhythm, systolic murmur (He does have a soft murmur). Absent: gallop, tachycardia - GI/Abdominal GI/Abdominal exam: Present: soft. Absent: distended, guarding, organomegaly, tenderness - Extremities Exam Extremities exam: Absent: calf tenderness, edema - Neurological Exam Neurological exam: Present: alert, oriented X3, CN II-XII intact - Psychiatric Psychiatric exam: Absent: anxious - Skin Skin exam: Present: warm, dry Medical,Surgical,& Family Hx - Medical History Cardio: History of: Cardiac Dysrhythmia (SLOW HEART BEAT.), Hypertension ([place]. MEDICALLY), Pacemaker, Cardiovascular Problems (AFIB HAD CARDIOVERSION IN 2013.DR MAURER) Psychological: History of: Anxiety Disorders ([place]. MEDICALLY), Depression No history of: ADHD, Behavior Problems, Bipolar Disorder, Previous Suicide Attempt, Psychiatric/Substance Abuse Tx, Schizophrenia, Violent Behavior, Psychiatric Problems Neurology: No history of: Seizures HEENT: History of: Ear Problem (hard of hearing), Eye Problem (CATARACTS REMOVED FROM BOTH EYES W/ LENS IMPLANTS.), HEENT Problems (MACULAR DEGENERATION) Rheumatology: History of;: Rheumatological Problems (Arthritis) Respiratory: History of: COPD ([place]. INHALER AND NEBS.), Pneumonia, Respiratory Problems (Bronch with lung Bx) Renal: History of: Renal Failure (HX), Renal Problems (CKD) Genitourinary: History of: Problems (urinary stricture) Gastrointestinal: History of: GERD, GI Problems ([place] SAID HE HAD DIARRHEA AND IS ON LOMOTIL.) Musculoskeletal: History of: Back/Neck Problems, Degenerative Disk Disease No history of: Amputation Hematology: History of: Anemia - Surgical History Thoracic Surgeries: Patient denies;: Organ Transplant, Lobectomy Neurologic Surgeries: Patient denies: Neurologic Surgery HEENT Surgeries: Surgical HX of: Eye Surgery (CATARACT SURGERIES X 2.), Tonsilectomy & Adenoidectomy (60 YEARS AGO.) Patient denies: Thyroid Surgery Abdominal Surgeries: Surgical HX of: Appendectomy (JUN 2014. RUPTURE. SURGERY.) , Colonoscopy (NEGATIVE. SEVERAL YEARS AGO.), EGD Reproductive Surgeries: Patient denies;: Genitourinary Surgery Orthopedic Surgeries: Patient denies;: Implanted Devices, Orthopedic Surgery, Spinal Surgery, Total Hip Replacement, Total Knee Replacement - Family History Family History: Reports;: Family Cancer (DAUGHTER HAS COLON CANCER, OVARIAN CANCER, LUNG CANCER BROTHERS.) Denies;: Family Anesthesia Reaction, Family Diabetes, Family Heart Disease, Family Hypertension, Family Psychiatric Problems, Family Stroke - Social History Smoking Status: Former smoker Frequency of Alcohol Use: None Type of Drug Use: None Results - Labs CBC & BMP: 04/17/17 09:22 04/17/17 09:22 - Diagnostic Findings Procedure: Chest x-ray: image reviewed by me, report reviewed by me (Chest x- ray showed right pleural effusion and left lower lobe consolidation.), CT - chest: image reviewed by me, report reviewed by me (Chest x-ray shows right pleural effusion and a left lower lobe consolidation. Also some nodular areas in the lung.)
[2017-04-17] MEDS: MONTELUKAST 10 MG TABLET PO SCH (16:14)
[2017-04-17] MEDS: methylPREDNISolone SOD SUC 40 MG/1 ML VIAL IV SCH (16:14)
--- NOTE | 2017-04-17 21:13 | CT Report ---
History: Worsening chest x-ray. Shortness of breath Date: 04/17/2017 Study: CT chest without contrast Comparison exam: CT chest January 12, [address] sections were obtained through the lungs without contrast. The CT exam was performed using one or more of the following dose reduction techniques: Automated exposure control, adjustment of the mA and/or kV according to patient size, or use of iterative reconstruction technique. There is a large layering pleural effusion in the dependent portion of the right hemithorax. There is prominent atelectatic change of the right lower lobe and right middle lobe which may be passive in nature. There is also some dependent atelectasis in the right upper lobe. There is a masslike infiltrate in the superior segment of the left upper lobe which measures at least 6.5 cm diameter. There are numerous noncalcified nodular densities scattered throughout the left lung which are suspicious for pulmonary metastatic disease, the largest of which measures 20 mm, located in the left lower lobe. These lung nodules are innumerable. There is no harley mediastinal lymphadenopathy by short axis diameter criteria. There is prominent coronary artery calcification with involvement of the left main, left anterior descending, and left circumflex coronary arteries. There is moderate aortic arch calcification without focal aortic aneurysm. A left subclavian transvenous pacemaker is in place. Spondylotic changes of the spine are present. Impression: Numerous noncalcified pulmonary nodules scattered throughout the left lung which could be metastatic in nature. Also consider septic emboli. There is a focal area of masslike parenchymal consolidation in the superior segment left lower lobe which could represent pneumonia or primary pulmonary malignancy Large right-sided pleural effusion with passive atelectatic change of the adjacent right lung. Prominent coronary artery calcification PROCEDURE INTERPRETED AT [facility] Final Report Signed by: Dr. Jacki Spicer
[2017-04-18] MEDS: ALBUTEROL/IPRATROPIUM 3 ML NEB RESP TX SCH ×4 (00:12→20:07)
[2017-04-18] MEDS: methylPREDNISolone SOD SUC 40 MG/1 ML VIAL IV SCH ×3 (00:34→17:37)
[2017-04-18] MEDS ORDERED: MELATONIN 3 MG TABLET PO ONE (01:07)
[2017-04-18 06:12] LABS: Basophils % 0.1 % (0.0-0.8); Hematocrit 37.5 VOL% (42.0-52.0); Hemoglobin 12.3 GM/DL (14.0-18.0); Immature Granulocytes % 0.8 %; Immature Granulocytes Absolute 0.09 #; Lymphocytes # 0.4 10*3/uL (1.4-4.0); Lymphocytes % 3.3 % (21.2-54.2); Mean Corpuscular HGB Conc 32.8 GM/DL (32-36); Mean Corpuscular Hemoglobin 29 PG (27-34); Mean Corpuscular Volume 88.4 FL (87-102); Mean Platelet Volume 9.3 FL (9.6-12.0); Monocytes # 0.1 10*3/uL (0.11-0.8); Monocytes % 1.1 % (1.7-12.7); Neutrophils # 10.7 10*3/uL (1.4-7.4); Neutrophils % 94.7 % (38.7-73.9); Platelet Count 260 T/CUMM (130-400); Red Blood Count 4.24 MC/CUMM (3.8-5.5); Red Cell Distribution Width 14.1 % (9.3-17.3); White Blood Count 11.3 T/CUMM (4-12)
[2017-04-18 06:40] LABS: Hypochromasia Slight; Lymphocytes 2 % (20-55); Platelet Estimate Adequate; Segmented Neutrophils 95 % (50-85); Total Cells Counted 100
[2017-04-18 06:49] LABS: Magnesium 2.7 MG/DL (1.8-2.4); Phosphorous 3.4 MG/DL (2.5-4.9)
[2017-04-18 06:50] LABS: Albumin 3.3 G/DL (3.4-5.0); Bilirubin,Total 0.6 MG/DL (0.2-1.0); Calcium 9.4 MG/DL (8.5-10.1); Osmolality,Calculated 299.4 MOS/KG (273-304); Potassium 4.9 MMOL/L (3.5-5.1); Total Protein 7.8 G/DL (6.4-8.3)
--- NOTE | 2017-04-18 08:41 | XRay Report ---
History: Shortness of breath Date: 04/18/2017 Study: Chest x-ray AP portable Comparison exam: 04/17/2017 There is continued opacification of the lower 40% of the right hemithorax related to large pleural effusion with underlying atelectatic parenchymal disease. There is again a masslike infiltrate in the left mid lung. Numerous ill-defined nodular densities are scattered in the left mid to lower lung as well, concerning for potential metastatic disease. There is no new or worsening infiltrate. There is stable cardiomegaly. The mediastinal contours are unchanged. A left subclavian transvenous pacemaker is in place. There is mild to moderate thoracic spondylosis. There is parenchymal and pleural scarring in either lung apex. Impression: No significant change from the previous study PROCEDURE INTERPRETED AT [facility] Final Report Signed by: Dr. Jacki Spicer
--- NOTE | 2017-04-18 09:17 | EKG Report ---
Stationary ECG Study [facility] ER Test Date: 04/17/2017 9:25:14 AM Pat Name: TERRENCE MENESES Department: Room: 236 Gender: M Database Technician: : [id number] Requested by: Elio Johnston Order Number: [id number] Latoya MD: DANIELE GARCIA Intervals [place] Rate: 63 P: 226 OR: 169 QRS: 51 QRSD: 109 T: 52 QT: 438 QTc: 445 Interpretive Statements ELECTRONIC ATRIAL PACEMAKER ABNORMAL RHYTHM ECG Electronically Signed On 04-18-17 11:31:09 CDT by DANIELE GARCIA [email or web address]
[2017-04-18] MEDS: MONTELUKAST 10 MG TABLET PO SCH (09:41)
--- NOTE | 2017-04-18 10:42 | Pulmonology Progress Note ---
Pulmonary - PN: Subj Interval history: This 86-year-old white male was here about 6 weeks ago. He had a superior segment left lower lobe unresolved pneumonia appearance by CT. We did a bronchoscope with transbronchial biopsies that came back benign except for some class III cytology brushings. He had significant bleeding and washed him in the CCU overnight. He was discharged on Monday by Dr. Lipscomb in my absence. I saw him back in the clinic with SLADE Uribe. That was on 03/13/2017 and he was doing better. The x-ray at that time showed some pleural blunting on the right side and a left hilar infiltrate that was slightly better than when he was in the hospital. He went home and came back with increased cough shortness of breath and now has a large right pleural effusion. We need to do a thoracentesis on that today. Exam (Progress Note) - Constitutional Vitals: Period Temp Pulse Resp BP Sys/Hackett Pulse Ox Last 24 Hr 97.6 F-98.1 F 59-74 18-24 154-211/45-80 88-99 Exam: Patient's alert afebrile. Vital signs normal. Pupils react to light. Throat is clear. Neck supple no bruits. Chest revealed dullness in the lower third of the right chest. A few rhonchi and rales over the superior segment left lower lobe and increased breath sounds there. Heart normal rate rhythm no murmurs. Abdomen soft nontender no masses. Extremities no clubbing cyanosis. No edema. Calves nontender. Homans test negative. Results - Labs CBC & BMP: 04/18/17 05:04 04/18/17 05:04 Lab Results: I have reviewed the past 24 hour labs - Diagnostic Findings Procedure: Chest x-ray: image reviewed by me (Infiltrate superior segment left lower lobe behind his pacemaker. Large right pleural effusion.) Assessment and Plan (1) Pleural effusion on right Status: Acute Assessment and plan: This has occurred in the last month. Differential would be between an infection malignant process or due to congestive heart failure/renal failure. Will obtain pleural fluid with a right thoracentesis this morning. Current Visit: Yes (2) COPD (chronic obstructive pulmonary disease) Status: Acute Assessment and plan: Bronchodilators and antibiotic steroids. Current Visit: Yes (3) Acute on chronic renal failure Status: Acute Assessment and plan: May need to have nephrology see him. Creatinine is 3.4. Depending on what the pleural fluid looks like he may need diuresing. Current Visit: No Qualifiers: Chronic kidney disease stage: stage 3 (moderate) (4) Bilateral lower lobe lung mass Status: Acute Assessment and plan: Has multiple nodules bilaterally with the largest one in the superior segment left lower lobe. I would be concerned about a bronchoalveolar cell carcinoma. If we do not get an answer from the thoracentesis we may need to have interventional radiology to do a needle biopsy of the left lung lesion. He bled so easily from transbronchial biopsy last month that I do not want to do another one. 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 Current Visit: No
--- NOTE | 2017-04-18 11:24 | Operative Note ---
Date of procedure: 04/18/17 (Right thoracentesis) Pre-op diagnosis: Right pleural effusion Post-op diagnosis: same (Slightly cloudy slightly hemorrhagic fluid suggests malignancy versus infectious causes) Procedure: After an appropriate timeout to be sure we were dealing with Kelechi Gardner, the patient was seated on the side of the bed. I percussed his lower right chest and chose an interspace one below the top of the dullness. The area was prepped with Betadine. Local anesthesia was applied with Xylocaine. We used the needle and catheter provided on the sterile tray. The chest was entered and we obtained fluid that was chadwick in color somewhat cloudy and minimally blood tinged. A total of 1600 mL were removed. We stopped at that point. There was more there. There were no immediate complications. Chest x-ray is pending. Fluid was sent for studies. Anesthesia: local Surgeon / Physician: Oscar Aparicio Estimated blood loss: none Specimens: other (1600 mL of slightly cloudy slightly hemorrhagic pleural fluid , see orders) Condition: stable Disposition: floor Results - Labs CBC & BMP: 04/18/17 05:04 04/18/17 05:04 Discharge Plan - Discharge Medications No Action [place]-3 Fatty Acids [Fish Oil Concentrate] 500 mg PO BID Gabapentin 300 mg PO BEDTIME Famotidine 40 mg PO BEDTIME Donepezil [Aricept] 10 mg PO BEDTIME Amiodarone Tab [Cordarone Tab] 200 mg PO DAILY amLODIPine [Norvasc] 5 mg PO BID Polyvinyl Alcohol 1.4% Oph Alva [Artificial Tears Oph Soln] 1 drop BOTH EYES QID PRN PRN Reason: Dry Eyes Montelukast Sodium 10 mg PO DAILY Polycarbophil [Fibercon] 625 mg PO DAILY PRN PRN Reason: Constipation Lutein 40 mg PO BEDTIME Ipratropium/Albuterol Sulfate [Iprat-Albut 0.5-3(2.5) mg/3 ml] 3 ml IH TID Ciprofloxacin Tab [Cipro Tab] 250 mg PO BID Aspirin [Ecotrin] 81 mg PO BEDTIME Mv-Min/FA/Vit K/Lycop/Lut/Zeax [Ocuvite Eye + Multi Tablet] 1 each PO BID Multivitamin with Iron [Multivitamins with Iron] 1 each PO DAILY Budesonide/Formoterol 160-4.5 [Symbicort 160-4.5] 2 puff INH BID Melatonin/Pyridoxine HCl (B6) [Melatonin 3 mg Tablet] 6 mg PO BEDTIME Furosemide Tab [Lasix Tab] 40 mg PO DAILY Loratadine Tab [Claritin Tab] 10 mg PO DAILY - Follow Up or Referral - Forms/Instructions
[2017-04-18 12:31] LABS: Lymphocytes,Pleural Fluid 62 %; Monocytes,Pleural Fluid 9 %; Neutrophils,Pleural Fluid 29 %
--- NOTE | 2017-04-18 12:57 | Hospitalist Progress Note ---
Assessment and Plan (1) Mass of lower lobe of left lung Status: Acute Assessment and plan: Patient is consulted to pulmonology. It. Dr. Aparicio aeruginosa but his gentleman. Mass in the left lower lobe. A segment is enlarged Current Visit: Yes (2) COPD exacerbation Status: Acute Assessment and plan: Continue bronchodilators and steroids. Continue ipratropium bromide and Singulair. Patient states that he used to be on Advair before but it appears that pulmonology recommended salmeterol/budesonide (Symbicort). Current Visit: Yes (3) Pleural effusion on right Status: Acute Assessment and plan: Patient will be seen by Dr. Aparicio I anticipate that he will be tapped. Current Visit: Yes Hospitalist: Subjective Interval history: Patient has been seen interviewed and examined and chart has been reviewed; said that breathing is a little better overnight. His gentleman admitted to the hospital with progressive shortness of breath and coughing wheezing chest x- ray showed increasing right-sided pleural effusion and increasing density in the upper portion of the left lower lobe. This patient come to know has had workup done as an outpatient in the [facility] system in [place]. He also was referred to Dr. Aparicio of the outpatient. The Alessandra will see him again here. Exam - Constitutional Vitals: Period Temp Pulse Resp BP Sys/Hackett Pulse Ox Last 24 Hr 97.1 F-98.1 F 59-77 18-24 155-211/45-80 88-99 General appearance: normal weight - Head Head exam: Present: normocephalic - Eye Eye exam: Present: EOMI Pupils: Present: SOLOMON - Respiratory Respiratory exam: Present: other (Dilated to auscultation and percussion on the right side no wheezing noted this morning) - Cardiovascular Cardiovascular exam: Present: regular rate and rhythm - GI/Abdominal GI/Abdominal exam: Present: normal bowel sounds, soft - Extremities Exam Extremities exam: Present: full ROM, other (Generalized weakness and tends to be short winded with exertion.) - Neurological Exam Neurological exam: Present: alert, oriented X3, CN II-XII intact, other (Hard of hearing) - Psychiatric Psychiatric exam: Present: normal affect, normal mood - Skin Skin exam: Present: normal color, warm, dry Results - Labs CBC & BMP: 04/18/17 05:04/18/17 05:04 Lab Results: I have reviewed the past 24 hour labs
[2017-04-18 13:15] LABS: RBC,Pleural Fluid 7121 T/CUMM
--- NOTE | 2017-04-18 14:31 | XRay Report ---
XR chest 1V Indication: Postthoracentesis Comparison: 18 April 2017 552 Findings: The heart and mediastinum are similar in size and configuration. The pulmonary vascularity is increased similar to previous exam. There is decreased right lower lung density and effusion postthoracentesis. No pneumothorax is identified.. The left midlung density similar to previous. Impression: Improved right lower lung effusion and aeration of right lower lung when compared to previous. PROCEDURE INTERPRETED AT [facility] DEPARTMENT OF RADIOLOGY Final Report Signed by: Dr. Leif Alvarez
[2017-04-18] MEDS ORDERED: POLYVINYL ALCOHOL 1.4% OPH SOLN 15 ML BOTTLE BOTH EYES PRN (16:45)
[2017-04-18] MEDS: LORATADINE 10 MG TABLET PO SCH (17:37)
[2017-04-18] MEDS ORDERED: LUTEIN 40 MG PO SCH (21:00)
[2017-04-18] MEDS: BUDESONIDE/FORMOTEROL 160-4.5 INHALER 6 GM INH SCH (21:23)
[2017-04-18] MEDS: MELATONIN 3 MG TABLET PO SCH (21:23)
[2017-04-18] MEDS: FAMOTIDINE 20 MG TABLET PO SCH (21:24)
[2017-04-18] MEDS: amLODIPine 5 MG TABLET PO SCH (21:24)
[2017-04-18] MEDS: ASPIRIN EC 81 MG TABLET PO SCH (21:24)
[2017-04-18] MEDS: GABAPENTIN 300 MG CAPSULE PO SCH (21:24)
[2017-04-18] MEDS: DONEPEZIL 10 MG TABLET PO SCH (21:25)
[2017-04-19] MEDS: ALBUTEROL/IPRATROPIUM 3 ML NEB RESP TX SCH ×4 (00:14→19:41)
[2017-04-19] MEDS: methylPREDNISolone SOD SUC 40 MG/1 ML VIAL IV SCH ×2 (01:05→14:25)
[2017-04-19] MEDS: MULTIVITAMIN (OCUVITE) TABLET PO SCH ×3 (06:33→21:08)
--- NOTE | 2017-04-19 07:12 | Pulmonology Progress Note ---
Pulmonary - PN: Subj Interval history: This 86-year-old white male was here about 6 weeks ago. He had a superior segment left lower lobe unresolved pneumonia appearance by CT. We did a bronchoscope with transbronchial biopsies that came back benign except for some class III cytology brushings. He had significant bleeding and washed him in the CCU overnight. He was discharged on Monday by Dr. Lipscomb in my absence. I saw him back in the clinic with SLADE Uribe. That was on 03/13/2017 and he was doing better. The x-ray at that time showed some pleural blunting on the right side and a left hilar infiltrate that was slightly better than when he was in the hospital. He went home and came back with increased cough shortness of breath and now has a large right pleural effusion. We need to do a thoracentesis on that today. 04/19/2017 chest x-ray postthoracentesis looks okay. Pleural fluid is clearly exudative. Await cytology and cultures. I think this is likely to be a malignancy. If cytology is negative then we could either have interventional radiology do a needle biopsy of the left lung lesion, or thoracic surgery do a VATS biopsy of right pleural. Exam (Progress Note) - Constitutional Vitals: Period Temp Pulse Resp BP Sys/Hackett Pulse Ox Last 24 Hr 96.1 F-97.7 F 60-83 16-22 153-176/64-77 90-99 Exam: Patient's alert afebrile. Vital signs normal. Pupils react to light. Throat is clear. Neck supple no bruits. Chest revealed good breath sounds on the right now. A few rhonchi and rales over the superior segment left lower lobe and increased breath sounds there. Heart normal rate rhythm no murmurs. Abdomen soft nontender no masses. Extremities no clubbing cyanosis. No edema. Calves nontender. Homans test negative. Results - Labs CBC & BMP: 04/18/17 05:04 04/18/17 05:04 Lab Results: I have reviewed the past 24 hour labs Assessment and Plan (1) Pleural effusion on right Status: Acute Assessment and plan: This has occurred in the last month. Differential would be between an infection malignant process or due to congestive heart failure/renal failure. Will obtain pleural fluid with a right thoracentesis this morning. 04/19/2017 await cytology and cultures. Very concerned about a multicentric pulmonary malignancy. Current Visit: Yes (2) COPD (chronic obstructive pulmonary disease) Status: Acute Assessment and plan: Bronchodilators and antibiotic steroids. 04/19/2017 continue current medications. We can reduce the steroids a bit. Current Visit: Yes (3) Acute on chronic renal failure Status: Acute Assessment and plan: May need to have nephrology see him. Creatinine is 3.4. Depending on what the pleural fluid looks like he may need diuresing. 04/19/2017 follow creatinine. Current Visit: No Qualifiers: Chronic kidney disease stage: stage 3 (moderate) (4) Bilateral lower lobe lung mass Status: Acute Assessment and plan: Has multiple nodules bilaterally with the largest one in the superior segment left lower lobe. I would be concerned about a bronchoalveolar cell carcinoma. If we do not get an answer from the thoracentesis we may need to have interventional radiology to do a needle biopsy of the left lung lesion. He bled so easily from transbronchial biopsy last month that I do not want to do another one. 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 Current Visit: No
[2017-04-19] MEDS ORDERED: LEVOFLOXACIN INJ 500 MG in PREMIX 1 EACH IV SCH (09:00)
[2017-04-19] MEDS: MULTIVITAMIN (CENTRUM) TABLET PO SCH (09:22)
[2017-04-19] MEDS: OMEGA 3 ACID ETHYL ESTERS 1 GM CAPSULE PO SCH (09:22)
[2017-04-19] MEDS: amLODIPine 5 MG TABLET PO SCH ×2 (09:23→21:08)
[2017-04-19] MEDS: MONTELUKAST 10 MG TABLET PO SCH (09:23)
[2017-04-19] MEDS: AMIODARONE 200 MG TABLET PO SCH (09:24)
[2017-04-19] MEDS: LORATADINE 10 MG TABLET PO SCH (09:24)
[2017-04-19] MEDS: FUROSEMIDE 40 MG TABLET PO SCH (09:24)
[2017-04-19] MEDS: BUDESONIDE/FORMOTEROL 160-4.5 INHALER 6 GM INH SCH ×2 (09:26→21:18)
--- NOTE | 2017-04-19 13:17 | Hospitalist Progress Note ---
Assessment and Plan (1) Mass of lower lobe of left lung Status: Acute Assessment and plan: Patient is consulted to pulmonology. Dr. Aparicio knows this gentleman from before. Given the current findings of pleural effusion is a contemplation of biopsy of this left-sided lesion Current Visit: Yes (2) COPD exacerbation Status: Acute Assessment and plan: Continue bronchodilators and steroids. Continue ipratropium bromide and Singulair. Patient states that he used to be on Advair before but it appears that pulmonology recommended salmeterol/budesonide (Symbicort). Current Visit: Yes (3) Pleural effusion on right Status: Acute Assessment and plan: Patient did have a thoracentesis yesterday with a large volume taken out. The fluid is exudative. Pathology is pending. Gram stain is negative for organism. Or indication at this point is leaning towards this being a malignant pleural effusion. Patient is being referred to interventional radiology for biopsy of the known lesion; video-assisted thoracoscopy is also considered. I will continue to 4 ounces gentleman again tomorrow morning Current Visit: Yes Hospitalist: Subjective Interval history: Patient has been seen interviewed and examined and chart has been reviewed. Secondary follow-up on this patient admitted to the hospital respiratory difficulty found to have bilateral pleural effusions and what looks like a consolidative lesion in the superior segment of left lower lobe. Comparing these findings to the findings of early February there has been an increase in both the size of the left-sided lesion on the pleural effusion. Patient underwent thorough centesis yesterday brought out exudative fluid. Patient is a febrile white count slightly increased from 9.7-11.3 no respiratory difficulty (he actually states that his breathing is a lot better). I have reviewed the note from Dr. Aparicio is contemplation of involving interventional radiology for biopsy of the left-sided lesion noted that patient will undergo video-assisted thoracoscopy biopsy. Exam - Constitutional Vitals: Period Temp Pulse Resp BP Sys/Hackett Pulse Ox Last 24 Hr 96.1 F-97.7 F 60-89 16-22 150-172/64-78 91-100 General appearance: normal weight - Head Head exam: Present: normocephalic, atraumatic - Eye Eye exam: Present: EOMI Pupils: Present: SLOOMON - ENT ENT exam: Present: normal oropharynx - Neck Neck exam: Present: normal inspection, other (Supple neck no JVD no adenopathy) - Respiratory Respiratory exam: Present: other (Rule out failed on the right side otherwise him more lung sounds in both sides today than yesterday) - Cardiovascular Cardiovascular exam: Present: regular rate and rhythm - GI/Abdominal GI/Abdominal exam: Present: normal bowel sounds, soft - Extremities Exam Extremities exam: Present: full ROM, other (Just generalized weakness) - Neurological Exam Neurological exam: Present: alert, oriented X3, CN II-XII intact, other (Hard of hearing) - Psychiatric Psychiatric exam: Present: normal affect, normal mood - Skin Skin exam: Present: normal color, warm, dry Results - Labs CBC & BMP: 04/18/17 05:04 04/18/17 05:04 Lab Results: I have reviewed the past 24 hour labs (Findings of the pleural fluid reviewed. Patient is an exudative pleural effusion definitive diagnosis of malignancy versus infection leaning more to malignancy)
[2017-04-19 13:43] LABS: Mycoplasma pneumoniae Ab, IgG 1.34 index (<=0.90); Mycoplasma pneumoniae Ab, IgM 0.8 index (<=0.90)
[2017-04-19] MEDS: FAMOTIDINE 20 MG TABLET PO SCH (21:07)
[2017-04-19] MEDS: GABAPENTIN 300 MG CAPSULE PO SCH (21:07)
[2017-04-19] MEDS: ASPIRIN EC 81 MG TABLET PO SCH (21:07)
[2017-04-19] MEDS: MELATONIN 3 MG TABLET PO SCH (21:08)
[2017-04-19] MEDS: DONEPEZIL 10 MG TABLET PO SCH (21:14)
[2017-04-20] MEDS: ALBUTEROL/IPRATROPIUM 3 ML NEB RESP TX SCH ×4 (00:01→19:30)
[2017-04-20] MEDS: methylPREDNISolone SOD SUC 40 MG/1 ML VIAL IV SCH ×2 (02:34→12:49)
--- NOTE | 2017-04-20 07:48 | Pulmonology Progress Note ---
Pulmonary - PN: Subj Interval history: This 86-year-old white male was here about 6 weeks ago. He had a superior segment left lower lobe unresolved pneumonia appearance by CT. We did a bronchoscope with transbronchial biopsies that came back benign except for some class III cytology brushings. He had significant bleeding and washed him in the CCU overnight. He was discharged on Monday by Dr. Lipscomb in my absence. I saw him back in the clinic with SLADE Uribe. That was on 03/13/2017 and he was doing better. The x-ray at that time showed some pleural blunting on the right side and a left hilar infiltrate that was slightly better than when he was in the hospital. He went home and came back with increased cough shortness of breath and now has a large right pleural effusion. We need to do a thoracentesis on that today. 04/19/2017 chest x-ray postthoracentesis looks okay. Pleural fluid is clearly exudative. Await cytology and cultures. I think this is likely to be a malignancy. If cytology is negative then we could either have interventional radiology do a needle biopsy of the left lung lesion, or thoracic surgery do a VATS biopsy of right pleural. 04/20/2017 cytology not reported as yet. Cultures were negative. Plan to repeat chest x-ray tomorrow. If cytology is negative then we may want to get needle biopsy done, or VATS pleural biopsy. Exam (Progress Note) - Constitutional Vitals: Period Temp Pulse Resp BP Sys/Hackett Pulse Ox Last 24 Hr 97.5 F-98.3 F 61-79 18-22 142-159/58-74 94-98 Exam: Patient's alert afebrile. Vital signs normal. Pupils react to light. Throat is clear. Neck supple no bruits. Chest revealed good breath sounds on the right now. A few rhonchi and rales over the superior segment left lower lobe and increased breath sounds there. Heart normal rate rhythm no murmurs. Abdomen soft nontender no masses. Extremities no clubbing cyanosis. No edema. Calves nontender. Homans test negative. Little change from yesterday. Results - Labs CBC & BMP: 04/18/17 05:04 04/18/17 05:04 Lab Results: I have reviewed the past 24 hour labs Assessment and Plan (1) Pleural effusion on right Status: Acute Assessment and plan: This has occurred in the last month. Differential would be between an infection malignant process or due to congestive heart failure/renal failure. Will obtain pleural fluid with a right thoracentesis this morning. 04/19/2017 await cytology and cultures. Very concerned about a multicentric pulmonary malignancy. 04/20/2017 cultures negative thus far. Cytology not reported. I am very suspicious of a malignancy. Current Visit: Yes (2) COPD (chronic obstructive pulmonary disease) Status: Acute Assessment and plan: Bronchodilators and antibiotic steroids. 04/19/2017 continue current medications. We can reduce the steroids a bit. 04/20/2017 continuing bronchodilators steroids and antibiotics empirically. Current Visit: Yes (3) Acute on chronic renal failure Status: Acute Assessment and plan: May need to have nephrology see him. Creatinine is 3.4. Depending on what the pleural fluid looks like he may need diuresing. 04/19/2017 follow creatinine. 04/20/2017 creatinine slightly higher. Current Visit: No Qualifiers: Chronic kidney disease stage: stage 3 (moderate) (4) Bilateral lower lobe lung mass Status: Acute Assessment and plan: Has multiple nodules bilaterally with the largest one in the superior segment left lower lobe. I would be concerned about a bronchoalveolar cell carcinoma. If we do not get an answer from the thoracentesis we may need to have interventional radiology to do a needle biopsy of the left lung lesion. He bled so easily from transbronchial biopsy last month that I do not want to do another one. 04/20/2017 await cytology from pleural fluid before making decision on next step. Patient is not a good candidate for chemotherapy, because I would not be very aggressive on getting a diagnosis but he probably could tolerate a needle biopsy. 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 Current Visit: No
[2017-04-20] MEDS: AMIODARONE 200 MG TABLET PO SCH (08:52)
[2017-04-20] MEDS: MULTIVITAMIN (CENTRUM) TABLET PO SCH (08:52)
[2017-04-20] MEDS: OMEGA 3 ACID ETHYL ESTERS 1 GM CAPSULE PO SCH (08:53)
[2017-04-20] MEDS: LORATADINE 10 MG TABLET PO SCH (08:53)
[2017-04-20] MEDS: MULTIVITAMIN (OCUVITE) TABLET PO SCH ×2 (08:53→20:50)
[2017-04-20] MEDS: MONTELUKAST 10 MG TABLET PO SCH (08:54)
[2017-04-20] MEDS: FUROSEMIDE 40 MG TABLET PO SCH (08:54)
[2017-04-20] MEDS: amLODIPine 5 MG TABLET PO SCH ×2 (08:54→20:48)
--- NOTE | 2017-04-20 12:20 | Hospitalist Progress Note ---
Assessment and Plan (1) Mass of lower lobe of left lung Status: Acute Assessment and plan: Patient is consulted to pulmonology. Dr. Aparicio knows this gentleman from before. Given the current findings of pleural effusion is a contemplation of biopsy of this left-sided lesion. Discontinue levofloxacin. Current Visit: Yes (2) COPD exacerbation Status: Acute Assessment and plan: Continue bronchodilators and steroids. Continue ipratropium bromide and Singulair. Patient states that he used to be on Advair before but it appears that pulmonology recommended salmeterol/budesonide (Symbicort). Current Visit: Yes (3) Pleural effusion on right Status: Acute Assessment and plan: Patient did have a thoracentesis yesterday with a large volume taken out. The fluid is exudative. Pathology is pending. Gram stain is negative for organism. Or indication at this point is leaning towards this being a malignant pleural effusion. Cytology is still pending. This does not look like an infection; anti-infective will be stopped Current Visit: Yes Hospitalist: Subjective Interval history: Patient has been seen interviewed and examined and chart has been reviewed gentleman admitted to the hospital respiratory distress found to have a large right-sided pleural effusion on the dense consolidation of the superior segment of left lower lobe. The suspicion that this is malignant process. Fluid obtained today for yesterday with an exudative fluid cultures are negative and there is no suggestion of infection by other indices. Patient says cytology is at this point pending. If you do not get any information on cytology the plan will be to obtain needle biopsy of this lesion in the left lower lobe or employee video-assisted thoracoscopy. Patient remains here symptomatically is doing a lot better. Patient interviewed today with the family available Exam - Constitutional Vitals: Period Temp Pulse Resp BP Sys/Hackett Pulse Ox Last 24 Hr 97.5 F-98.3 F 61-79 18-22 142-170/58-74 90-99 General appearance: normal weight, no acute distress - Head Head exam: Present: normocephalic, atraumatic - Eye Eye exam: Present: EOMI Pupils: Present: SOLOMON - ENT ENT exam: Present: normal oropharynx - Neck Neck exam: Present: normal inspection, other (No adenopathy) - Respiratory Respiratory exam: Present: other (Can hear lung sounds on both sides including the right lower lobe. No wheezing no rhonchi no amphophory) - Cardiovascular Cardiovascular exam: Present: regular rate and rhythm - GI/Abdominal GI/Abdominal exam: Present: normal bowel sounds, soft - Extremities Exam Extremities exam: Present: full ROM, other (Generalized weakness) - Neurological Exam Neurological exam: Present: alert, oriented X3, CN II-XII intact - Psychiatric Psychiatric exam: Present: normal affect, normal mood - Skin Skin exam: Present: normal color, warm, dry Results - Labs CBC & BMP: 04/18/17 05:04 04/18/17 05:04 Lab Results: I have reviewed the past 24 hour labs
[2017-04-20] MEDS: BUDESONIDE/FORMOTEROL 160-4.5 INHALER 6 GM INH SCH ×2 (12:49→20:49)
[2017-04-20] MEDS: MELATONIN 3 MG TABLET PO SCH (20:47)
[2017-04-20] MEDS: GABAPENTIN 300 MG CAPSULE PO SCH (20:48)
[2017-04-20] MEDS: ASPIRIN EC 81 MG TABLET PO SCH (20:48)
[2017-04-20] MEDS: DONEPEZIL 10 MG TABLET PO SCH (20:48)
[2017-04-20] MEDS: FAMOTIDINE 20 MG TABLET PO SCH (20:48)
[2017-04-21] MEDS: ALBUTEROL/IPRATROPIUM 3 ML NEB RESP TX SCH ×4 (00:33→19:20)
[2017-04-21] MEDS: methylPREDNISolone SOD SUC 40 MG/1 ML VIAL IV SCH ×2 (01:52→17:31)
--- NOTE | 2017-04-21 06:34 | Pulmonology Progress Note ---
Pulmonary - PN: Subj Interval history: This 86-year-old white male was here about 6 weeks ago. He had a superior segment left lower lobe unresolved pneumonia appearance by CT. We did a bronchoscope with transbronchial biopsies that came back benign except for some class III cytology brushings. He had significant bleeding and washed him in the CCU overnight. He was discharged on Monday by Dr. Lipscomb in my absence. I saw him back in the clinic with SLADE Uribe. That was on 03/13/2017 and he was doing better. The x-ray at that time showed some pleural blunting on the right side and a left hilar infiltrate that was slightly better than when he was in the hospital. He went home and came back with increased cough shortness of breath and now has a large right pleural effusion. We need to do a thoracentesis on that today. 04/19/2017 chest x-ray postthoracentesis looks okay. Pleural fluid is clearly exudative. Await cytology and cultures. I think this is likely to be a malignancy. If cytology is negative then we could either have interventional radiology do a needle biopsy of the left lung lesion, or thoracic surgery do a VATS biopsy of right pleural. 04/20/2017 cytology not reported as yet. Cultures were negative. Plan to repeat chest x-ray tomorrow. If cytology is negative then we may want to get needle biopsy done, or VATS pleural biopsy. 04/21/2017 once again cytology is not reported yet. Await word from that before deciding where to go next. Patient is 86 years old and probably will not want chemotherapy. However he needs a diagnosis for prognostic purposes. Exam (Progress Note) - Constitutional Vitals: Period Temp Pulse Resp BP Sys/Hackett Pulse Ox Last 24 Hr 97 F-98.3 F 60-82 20-22 153-180/67-77 90-99 Exam: Patient's alert afebrile. Vital signs normal. Pupils react to light. Throat is clear. Neck supple no bruits. Chest revealed good breath sounds on the right now. A few rhonchi and rales over the superior segment left lower lobe and increased breath sounds there. Heart normal rate rhythm no murmurs. Abdomen soft nontender no masses. Extremities no clubbing cyanosis. No edema. Calves nontender. Homans test negative. Little change from yesterday. Results - Labs CBC & BMP: 07/25/17 05:04 04/18/17 05:04 Lab Results: I have reviewed the past 24 hour labs Assessment and Plan (1) Pleural effusion on right Status: Acute Assessment and plan: This has occurred in the last month. Differential would be between an infection malignant process or due to congestive heart failure/renal failure. Will obtain pleural fluid with a right thoracentesis this morning. 04/19/2017 await cytology and cultures. Very concerned about a multicentric pulmonary malignancy. 04/20/2017 cultures negative thus far. Cytology not reported. I am very suspicious of a malignancy. 04/21/2017 exudative right pleural effusion. Very suspicious for metastatic disease. Cytology has not been reported. Also has mass in superior segment left lower lobe. I biopsied this a few weeks ago and it bled significantly and did not give a diagnosis. If he needs further studies done he would need a needle biopsy of the left lung mass or VATS biopsy of the right pleura. Current Visit: Yes (2) COPD (chronic obstructive pulmonary disease) Status: Acute Assessment and plan: Bronchodilators and antibiotic steroids. 04/19/2017 continue current medications. We can reduce the steroids a bit. 04/20/2017 continuing bronchodilators steroids and antibiotics empirically. 04/21/2017 patient is feeling better. Taper steroids. Current Visit: Yes (3) Acute on chronic renal failure Status: Acute Assessment and plan: May need to have nephrology see him. Creatinine is 3.4. Depending on what the pleural fluid looks like he may need diuresing. 04/19/2017 follow creatinine. 04/20/2017 creatinine slightly higher. Current Visit: No Qualifiers: Chronic kidney disease stage: stage 3 (moderate) (4) Bilateral lower lobe lung mass Status: Acute Assessment and plan: Has multiple nodules bilaterally with the largest one in the superior segment left lower lobe. I would be concerned about a bronchoalveolar cell carcinoma. If we do not get an answer from the thoracentesis we may need to have interventional radiology to do a needle biopsy of the left lung lesion. He bled so easily from transbronchial biopsy last month that I do not want to do another one. 04/20/2017 await cytology from pleural fluid before making decision on next step. Patient is not a good candidate for chemotherapy, because I would not be very aggressive on getting a diagnosis but he probably could tolerate a needle biopsy. 04/21/2017 suspicious for metastatic malignancy. May be a multifocal lung cancer. However we still await pleural fluid cytology. 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 Current Visit: No
--- NOTE | 2017-04-21 08:05 | XRay Report ---
Exam: XR chest 2V Date: 04/21/2017 4:00 AM Indication: Left lung mass pleural effusion right-sided follow-up Comparison: Prior chest radiograph 04-[address] scan 04/17/2017 Technical: PA lateral Findings: A right base pleural effusion has worsened when compared to previous exam. Cardiomegaly is present. Underlying component of COPD. There is a area of nodularity in the left base. Alveolar infiltrates edema or mass in the left midlung zone present.. Cardiac pacing device is present with atrial ventricular leads. Apical pleural thickening is present bilaterally. The bony structures reveal no acute findings with anterolateral marginal osteophytes. Impression: 1. Worsening right base pleural effusion 2. Atelectatic change infiltrate in the right base with coalescing alveolar infiltrate in the left mid chest could represent postobstructive pneumonitis with suggestion of a mass density in the left perihilar region with mass in the left base also noted with scattered nodular densities in both bases. 3. Stable position a cardiac pacing device with cardiac enlargement and ASVD PROCEDURE INTERPRETED AT [facility] DEPARTMENT OF RADIOLOGY Final Report Signed by: Dr. Lemuel Burris
[2017-04-21] MEDS: MULTIVITAMIN (CENTRUM) TABLET PO SCH (09:16)
[2017-04-21] MEDS: AMIODARONE 200 MG TABLET PO SCH (09:17)
[2017-04-21] MEDS: FUROSEMIDE 40 MG TABLET PO SCH (09:17)
[2017-04-21] MEDS: LORATADINE 10 MG TABLET PO SCH (09:17)
[2017-04-21] MEDS: MONTELUKAST 10 MG TABLET PO SCH (09:18)
[2017-04-21] MEDS: amLODIPine 5 MG TABLET PO SCH ×2 (09:18→21:21)
[2017-04-21] MEDS: MULTIVITAMIN (OCUVITE) TABLET PO SCH ×2 (09:18→21:22)
[2017-04-21] MEDS: OMEGA 3 ACID ETHYL ESTERS 1 GM CAPSULE PO SCH (09:18)
[2017-04-21] MEDS: BUDESONIDE/FORMOTEROL 160-4.5 INHALER 6 GM INH SCH ×2 (09:20→21:21)
--- NOTE | 2017-04-21 11:15 | Pathology Report from [facility] ---
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 04/20/2017 - 13:26:08 MTDVickie
--- NOTE | 2017-04-21 11:28 | Hospitalist Progress Note ---
Assessment and Plan (1) Mass of lower lobe of left lung Status: Acute Assessment and plan: Patient has pleural effusion has adenocarcinoma please refer to the pathology report. She is consulted to medical oncology and to be seen by Dr. Pimentel later today hopefully. Current Visit: Yes (2) COPD exacerbation Status: Acute Assessment and plan: Continue bronchodilators and steroids. Continue ipratropium bromide and Singulair. Patient states that he used to be on Advair before but it appears that pulmonology recommended salmeterol/budesonide (Symbicort). Current Visit: Yes (3) Pleural effusion on right Status: Acute Assessment and plan: This exudative pleural effusion has revealed adenocarcinoma. Patient has been consulted to medical oncology as mentioned above. Further recommendations to come. Findings discussed with the patient and the family members in the room this morning. This was done in the presence of the primary care nurse. Current Visit: Yes Hospitalist: Subjective Interval history: Patient has been seen interviewed and examined and chart has been reviewed his gentleman is admitted to the hospital with respiratory distress shortness of breath found to have a pleural effusion and mass in the left lung. Fluid obtained today for yesterday has reveals adenocarcinoma possibly GI or pancreatic. Patient is being consulted to medical oncology at this time. Dr. Aparicio has been following him from a pulmonary point of view. Is referred to the nurse on discharge regarding recommendations. Exam - Constitutional Vitals: Period Temp Pulse Resp BP Sys/Hackett Pulse Ox Last 24 Hr 97 F-98.3 F 60-82 18-22 153-180/67-77 90-99 General appearance: normal weight, no acute distress - Head Head exam: Present: normocephalic, atraumatic - Eye Eye exam: Present: EOMI, other (Anicteric sclera) Pupils: Present: SOLOMON - ENT ENT exam: Present: normal exam - Neck Neck exam: Present: normal inspection - Respiratory Respiratory exam: Present: clear to auscultation bilaterally, other (Bibasilar crackles) - Cardiovascular Cardiovascular exam: Present: regular rate and rhythm - GI/Abdominal GI/Abdominal exam: Present: normal bowel sounds, soft - Extremities Exam Extremities exam: Present: full ROM - Neurological Exam Neurological exam: Present: alert, oriented X3, CN II-XII intact, other (Hard of hearing) - Psychiatric Psychiatric exam: Present: normal affect, normal mood - Skin Skin exam: Present: normal color, warm, dry Results - Labs CBC & BMP: 04/18/17 05:04 04/18/17 05:04 Lab Results: I have reviewed the past 24 hour labs (Note: cytology report from the pleural effusion i.e. adenocarcinoma)
--- NOTE | 2017-04-21 11:34 | Oncology Consult Note ---
History of Present Illness History of present illness: Mr. Gardner is an 86-year-old man who was admitted with dyspnea and a pleural effusion who underwent thoracentesis on April 18, 2017 and the report is metastatic adenocarcinoma; consider pancreatic versus upper GI primary. He had a CT of the chest done April 17, 2017. I do not think he has had a CT of the abdomen and pelvis yet. He confirms this. He also reports that he is having minimal esophageal reflux but no other GI symptoms. No history of nausea or vomiting, significant abdominal pain, jaundice, liver or gallbladder disease, hematemesis, melena or hematochezia. No history of chronic or severe constipation or diarrhea. Allergies: No known allergies - Review of System 12 point system: reviewed and no additional remarkable complaints except as stated - Review of System Constitutional: Absent: fever Respiratory: Present: other (shortness of breath). Absent: cough, respiratory distress Cardiovascular: Absent: chest pain Skin: Absent: rash Medical,Surgical,& Family Hx - Medical History Cardio: History of: Cardiac Dysrhythmia (SLOW HEART BEAT.), Hypertension ([place]. MEDICALLY), Pacemaker, Cardiovascular Problems (AFIB HAD CARDIOVERSION IN 2013.DR MAURER) Psychological: History of: Anxiety Disorders ([place]. MEDICALLY), Depression No history of: ADHD, Behavior Problems, Bipolar Disorder, Previous Suicide Attempt, Psychiatric/Substance Abuse Tx, Schizophrenia, Violent Behavior, Psychiatric Problems Neurology: No history of: Seizures HEENT: History of: Ear Problem (hard of hearing), Eye Problem (CATARACTS REMOVED FROM BOTH EYES W/ LENS IMPLANTS.), HEENT Problems (MACULAR DEGENERATION) Rheumatology: History of;: Rheumatological Problems (Arthritis) Respiratory: History of: COPD ([place]. INHALER AND NEBS.), Pneumonia, Respiratory Problems (Bronch with lung Bx) Renal: History of: Renal Failure (HX), Renal Problems (CKD) Genitourinary: History of: Problems (urinary stricture) Gastrointestinal: History of: GERD, GI Problems (VA SAID HE HAD DIARRHEA AND IS ON LOMOTIL.) Musculoskeletal: History of: Back/Neck Problems, Degenerative Disk Disease No history of: Amputation Hematology: History of: Anemia - Surgical History Thoracic Surgeries: Patient denies;: Organ Transplant, Lobectomy Neurologic Surgeries: Patient denies: Neurologic Surgery HEENT Surgeries: Surgical HX of: Eye Surgery (CATARACT SURGERIES X 2.), Tonsilectomy & Adenoidectomy (60 YEARS AGO.) Patient denies: Thyroid Surgery Abdominal Surgeries: Surgical HX of: Appendectomy (JUN 2014. RUPTURE. SURGERY.) , Colonoscopy (NEGATIVE. SEVERAL YEARS AGO.), EGD Reproductive Surgeries: Patient denies;: Genitourinary Surgery Orthopedic Surgeries: Patient denies;: Implanted Devices, Orthopedic Surgery, Spinal Surgery, Total Hip Replacement, Total Knee Replacement - Family History Family History: Reports;: Family Cancer (DAUGHTER HAS COLON CANCER, OVARIAN CANCER, LUNG CANCER BROTHERS.) Denies;: Family Anesthesia Reaction, Family Diabetes, Family Heart Disease, Family Hypertension, Family Psychiatric Problems, Family Stroke - Social History Smoking Status: Former smoker Physical examination: General: The patient appears to be approximately his stated age. Eyes: Normal lids and conjunctivae. ENT: He has upper and lower dentures. His oral mucosa and pharynx are normal. His hearing is normal. His trachea is midline and he has no neck masses. Lungs: He is tachypneic. He has no chest wall tenderness or masses. Breath sounds are absent in the right lung base but decreased throughout the lungs bilaterally and he has a prolonged expiratory phase of respiration. I hear no wheezes or rhonchi. Cardiovascular: His heart rhythm is regular without murmur, gallop or rub. There is no jugular venous distention, clubbing or cyanosis. Abdomen: His abdomen is protuberant but I palpate no ascites. There is no tenderness. There are no masses. Musculoskeletal: There is no focal muscle atrophy or bone or joint deformity. Neurologic: Cranial nerves II through XII are intact. There are no focal neurologic deficits. Nodes: I find no submandibular, cervical, supraclavicular or axillary adenopathy. Skin: Cursory examination is normal. Psychiatric: He appears to be oriented to time, place, person and situation. Impression: The patient has class V pleural fluid from his thoracentesis. He has had a CT of his chest. We need to get a CT of his abdomen and pelvis. I have ordered a CEA level, CA-19-9 and alpha-fetoprotein. I would consider proceeding with GI consultation as well. Home Medications Medication Instructions Recorded Confirmed Type Amiodarone Tab [Cordarone Tab] 200 mg PO DAILY 12/22/15 04/17/17 History Donepezil [Aricept] 10 mg PO BEDTIME 12/22/15 04/17/17 History Famotidine 40 mg PO BEDTIME 12/22/15 04/17/17 History Gabapentin 300 mg PO BEDTIME 12/22/15 04/17/17 History [place]-3 Fatty Acids [Fish Oil 500 mg PO BID 12/22/15 04/17/17 History Concentrate] Polyvinyl Alcohol 1.4% Oph [place] 1 drop BOTH EYES QID PRN 02/04/16 04/17/17 History [Artificial Tears Oph Soln] amLODIPine [Norvasc] 5 mg PO BID 02/04/16 04/17/17 History Budesonide/Formoterol 160-4.5 2 puff INH BID 10/05/16 04/17/17 History [Symbicort 160-4.5] Montelukast Sodium 10 mg PO DAILY 10/05/16 04/17/17 History Furosemide Tab [Lasix Tab] 40 mg PO DAILY 02/23/17 04/17/17 History Lutein 40 mg PO BEDTIME 02/23/17 04/17/17 History Melatonin/Pyridoxine HCl (B6) 6 mg PO BEDTIME 02/23/17 04/17/17 History [Melatonin 3 mg Tablet] Polycarbophil [Fibercon] 625 mg PO DAILY PRN 02/23/17 04/17/17 History Aspirin [Ecotrin] 81 mg PO BEDTIME 04/17/17 04/17/17 History Ciprofloxacin Tab [Cipro Tab] 250 mg PO BID 04/17/17 04/17/17 History Ipratropium/Albuterol Sulfate 3 ml IH TID 04/17/17 04/17/17 History [Iprat-Albut 0.5-3(2.5) mg/3 ml] Loratadine Tab [Claritin Tab] 10 mg PO DAILY 04/17/17 04/17/17 History Multivitamin with Iron 1 each PO DAILY 04/17/17 04/17/17 History [Multivitamins with Iron] Mv-Min/FA/Vit K/Lycop/Lut/Zeax 1 each PO BID 04/17/17 04/17/17 History [Ocuvite Eye + Multi Tablet] Allergies Allergy/AdvReac Type Severity Reaction Status Date / Time No Known Allergies Allergy Verified 12/30/15 15:59 Medical,Surgical,& Family Hx - Medical History Cardio: History of: Cardiac Dysrhythmia (SLOW HEART BEAT.), Hypertension ([place]. MEDICALLY), Pacemaker, Cardiovascular Problems (AFIB HAD CARDIOVERSION IN 2013.DR MAURER) Psychological: History of: Anxiety Disorders ([place]. MEDICALLY), Depression No history of: ADHD, Behavior Problems, Bipolar Disorder, Previous Suicide Attempt, Psychiatric/Substance Abuse Tx, Schizophrenia, Violent Behavior, Psychiatric Problems Neurology: No history of: Seizures HEENT: History of: Ear Problem (hard of hearing), Eye Problem (CATARACTS REMOVED FROM BOTH EYES W/ LENS IMPLANTS.), HEENT Problems (MACULAR DEGENERATION) Rheumatology: History of;: Rheumatological Problems (Arthritis) Respiratory: History of: COPD ([place]. INHALER AND NEBS.), Pneumonia, Respiratory Problems (Bronch with lung Bx) Renal: History of: Renal Failure (HX), Renal Problems (CKD) Genitourinary: History of: Problems (urinary stricture) Gastrointestinal: History of: GERD, GI Problems (VA SAID HE HAD DIARRHEA AND IS ON LOMOTIL.) Musculoskeletal: History of: Back/Neck Problems, Degenerative Disk Disease No history of: Amputation Hematology: History of: Anemia - Surgical History Thoracic Surgeries: Patient denies;: Organ Transplant, Lobectomy Neurologic Surgeries: Patient denies: Neurologic Surgery HEENT Surgeries: Surgical HX of: Eye Surgery (CATARACT SURGERIES X 2.), Tonsilectomy & Adenoidectomy (60 YEARS AGO.) Patient denies: Thyroid Surgery Abdominal Surgeries: Surgical HX of: Appendectomy (JUN 2014. RUPTURE. SURGERY.) , Colonoscopy (NEGATIVE. SEVERAL YEARS AGO.), EGD Reproductive Surgeries: Patient denies;: Genitourinary Surgery Orthopedic Surgeries: Patient denies;: Implanted Devices, Orthopedic Surgery, Spinal Surgery, Total Hip Replacement, Total Knee Replacement - Family History Family History: Reports;: Family Cancer (DAUGHTER HAS COLON CANCER, OVARIAN CANCER, LUNG CANCER BROTHERS.) Denies;: Family Anesthesia Reaction, Family Diabetes, Family Heart Disease, Family Hypertension, Family Psychiatric Problems, Family Stroke - Social History Smoking Status: Former smoker Frequency of Alcohol Use: None Type of Drug Use: None Exam - Constitutional Vitals: Period Temp Pulse Resp BP Sys/Hackett Pulse Ox Last 24 Hr 97 F-98.3 F 60-82 18-22 153-180/67-77 90-99 Results - Labs CBC & BMP: 04/18/17 05:04 04/18/17 05:04
[2017-04-21 13:15] LABS: AFP Tumor 2.4 NG/ML (0-8)
[2017-04-21 13:33] LABS: Carcinoembryonic Antigen 8.2 NG/ML (0.0-5.0)
[2017-04-21 14:39] LABS: Cancer Antigen 19-9 2506.5 U/ML (0-37)
--- NOTE | 2017-04-21 15:29 | CT Report ---
CT abdomen pelvis wo con Indication: Suspected pancreatic or upper GI cancer. Comparison: None. Technique: CT of the abdomen and pelvis was performed without administration of intravenous contrast. The CT examination was performed using one or more of the following dose reduction techniques: Automatic exposure control, adjustment of the mA and kV according to patient size, use of acute or iterative reconstruction techniques. Findings: Significant limitation exists secondary to lack of intravenous contrast. 2 numerous to count pulmonary nodules diffusely distributed throughout the lung parenchyma with coalescent soft tissue attenuation within the left lower lobe that likely reflects neoplasm. Pleural effusion on the right is small to moderate in size. This measures 2 cm. Loculation is suggested. Hypoattenuating lesion within the caudal aspect of the left hepatic lobe image #65 measures 12 13 mm. Further evaluation is not possible secondary to lack of intravenous contrast. Spleen is normal in size and appearance. The noncontrast enhanced appearance of the pancreas is unremarkable. The adrenal glands and kidneys demonstrate no specific evidence of neoplasm or acute pathology. Moderately severe renal artery calcifications are noted bilaterally. The aorta demonstrates diffuse intimal calcification extending into the iliac arteries. The stomach, duodenum, and small bowel demonstrate no significant abnormalities. Postoperative changes are noted from prior appendectomy. There is a large amount of stool present within the cecum and ascending colon. A few scattered diverticula are not excluded. Stool additionally is present and a large amount within the descending large bowel. There are no masses or focal/short segment areas of wall thickening present to suggest neoplasm of the large bowel. Extensive diverticula are present within the sigmoid and rectum. Intrapelvic contents demonstrate no significant abnormalities. No adenopathy is noted within the abdomen or pelvis. Bony structures demonstrate no evidence of acute pathology or specific features of metastatic disease. Soft tissues and musculature of the body wall demonstrate no acute findings. Moderately severe atherosclerotic calcification of the femoral arteries is demonstrated. Impression: 1. Too numerous to count pulmonary nodules demonstrated bilaterally with additional confluence/consolidation and/or soft tissue mass of the left upper lobe is most suggestive of metastatic disease. Small right-sided pleural effusion is associated. 2. No specific etiology of pulmonary metastatic disease is demonstrated. Considerations in addition to GI etiology could include melanoma or thyroid. 3. Colonic diverticulosis and constipation are present. 4. Severe atherosclerotic disease involving the bilateral renal arteries, aorta, not mentioned above the SMA, and bilateral iliacs as well as femoral arteries is present. 04/21/2017 3:21 PM PROCEDURE INTERPRETED AT [facility] DEPARTMENT OF RADIOLOGY Final Report Signed by: Dr. Trav Kirkland
[2017-04-21] MEDS: MELATONIN 3 MG TABLET PO SCH (21:21)
[2017-04-21] MEDS: DONEPEZIL 10 MG TABLET PO SCH (21:21)
[2017-04-21] MEDS: ASPIRIN EC 81 MG TABLET PO SCH (21:22)
[2017-04-21] MEDS: FAMOTIDINE 20 MG TABLET PO SCH (21:22)
[2017-04-21] MEDS: GABAPENTIN 300 MG CAPSULE PO SCH (21:22)
[2017-04-22] MEDS: ALBUTEROL/IPRATROPIUM 3 ML NEB RESP TX SCH ×4 (00:11→19:26)
[2017-04-22] MEDS: MULTIVITAMIN (CENTRUM) TABLET PO SCH (08:24)
[2017-04-22] MEDS: AMIODARONE 200 MG TABLET PO SCH (08:25)
[2017-04-22] MEDS: LORATADINE 10 MG TABLET PO SCH (08:25)
[2017-04-22] MEDS: FUROSEMIDE 40 MG TABLET PO SCH (08:25)
[2017-04-22] MEDS: MULTIVITAMIN (OCUVITE) TABLET PO SCH ×2 (08:26→20:57)
[2017-04-22] MEDS: MONTELUKAST 10 MG TABLET PO SCH (08:26)
[2017-04-22] MEDS: BUDESONIDE/FORMOTEROL 160-4.5 INHALER 6 GM INH SCH ×2 (08:26→20:58)
[2017-04-22] MEDS: OMEGA 3 ACID ETHYL ESTERS 1 GM CAPSULE PO SCH (08:26)
[2017-04-22] MEDS: amLODIPine 5 MG TABLET PO SCH ×2 (08:26→20:57)
[2017-04-22] MEDS: methylPREDNISolone SOD SUC 40 MG/1 ML VIAL IV SCH ×2 (08:27→21:01)
--- NOTE | 2017-04-22 08:50 | Oncology Progress Note ---
Oncology Subjective PN Interval history: The patient's family brought up the issue of BRAF and KRAS testing because of a relative has had colon cancer. I explained to them that it is not appropriate to check this yet until we have actually established whether or not this is colon cancer versus other malignancy. Tumor markers yesterday include an alpha-fetoprotein level of 2.4 with a CEA level of 8.2 and a CA-19-9 of 2506.5. 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 He has had his CT of the abdomen and pelvis now but is severely limited by the fact the patient has renal failure and could not have IV contrast. The noncontrast appearance of the pancreas is normal. There is a lesion in the left hepatic lobe that measures 12-13 mm. The spleen is normal in size. The adrenals and kidneys are normal. There is no change within the bony framework to suggest bone metastases. Further endoscopy is planned by Dr. Warner and I certainly agree with this, especially plans for MRCP and he certainly needs a repeat colonoscopy since the one done previously was not a complete 1 due to poor bowel prep. Exam - Constitutional Vitals: Period Temp Pulse Resp BP Sys/Hackett Pulse Ox Last 24 Hr 96.7 F-98.3 F 60-78 16-22 141-152/66-82 93-99 Results - Labs CBC & BMP: 04/18/17 05:04 04/18/17 05:04
--- NOTE | 2017-04-22 09:34 | Hospitalist Progress Note ---
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 Small right-sided pleural effusion is associated. 2. No specific etiology of pulmonary metastatic disease is demonstrated. Considerations in addition to GI etiology could include melanoma or thyroid. 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 Current Visit: Yes (4) Acute on chronic renal failure Status: Acute Assessment and plan: Not really improving. plan avoid Nephrotoxics BMP in am Current Visit: No Qualifiers: Chronic kidney disease stage: stage 3 (moderate) Hospitalist: Subjective Interval history: Patient seen this am sitting up on a chair. No new issues. We are awaiting GI consult.CT abd/pelvis showed No specific etiology of pulmonary metastatic disease is demonstrated. Considerations in addition to GI etiology could include melanoma or thyroid was mentioned. Exam - Constitutional Vitals: Period Temp Pulse Resp BP Sys/Hackett Pulse Ox Last 24 Hr 96.7 F-98.3 F 60-78 16-22 141-152/66-82 93-99 General appearance: no acute distress, other (on 2L of oxygen) - Head Head exam: Present: normal inspection - Respiratory Respiratory exam: Present: clear to auscultation bilaterally, rales - Cardiovascular Cardiovascular exam: Present: regular rate and rhythm - GI/Abdominal GI/Abdominal exam: Present: normal bowel sounds - Extremities Exam Extremities exam: Present: normal inspection - Neurological Exam Neurological exam: Present: alert, oriented X3 Results - Labs CBC & BMP: 04/18/17 05:04 04/18/17 05:04 Lab Results: I have reviewed the past 24 hour labs
--- NOTE | 2017-04-22 10:07 | Gastrointestinal Consult Note ---
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 The CA 19-9 is extremely elevated, notably 2506 (normal equals 0-37), and the CEA level was less elevated at 8.6. To look for subtle pancreatic cancer and laryngeal carcinoma have ordered a MRCP for this patient. He is already had a upper endoscopy done by Dr. Luke Duque along with a partial colonoscopy sometime in the last year and a half over at [facility]. We are obtaining these old records. I suspect that because the colonoscopy was not complete but will have to repeat that on Monday. Clear liquid diet tomorrow with colonic prep in order to proceed with colonoscopy the next day. Unfortunately because of this patient's high creatinine he will require a GoLYTELY prep. Risks of the procedure including bleeding, infection, perforation, cardiac and pulmonary compromise were discussed with the patient prior to the procedure. Further recommendations post colonoscopy, MRCP and review of the records from [place]. Current Visit: Yes (2) Constipation Status: Acute Assessment and plan: Patient does have low-grade constipation would benefit from use of MiraLAX twice daily. He can continue on his diet today but will need to switch over to clear liquids tomorrow in order to prep appropriately. Current Visit: Yes History of Present Illness Chief complaint: [place] CA on plerual fluid, high CA19-9>CEA, prob GI tract origin. History of present illness: Mr. Gardner is a 86 year old male who had undergone colonoscopy by Dr. Hoffman back in [facility] many years ago. I cannot find the records for this. Patient been followed by Dr. Jeremias Guy given his renal dysfunction and had ended up being referred to Dr. Luke Duque over at [facility] who performed EGD and colonoscopy on this patient sometime in the last year to year and a half according to the patient's son and his at the bedside. He has been some mild reflux symptoms but otherwise is having no problems with his upper GI tract. He does have some mild constipation issues and apparently compliance problem as far as his colon prep. The upper endoscopy did not show much by report from the family and the colonoscopy was also unremarkable but could not be completed due to poor prep in the right colon by report. The patient does have an elevated CEA level of 8.2 but a much higher level of CA 19-9 at 2506 (0- 37 equals normal). I have been consulted to see if further workup is needed from a GI standpoint. Likely the upper endoscopy was adequate for ruling out potential upper GI source for cancer however the patient has not had a complete prep and evaluation of the colon we will provide this on Monday. I am trying to get the old records from Dr. Duque's office over at [facility]. He really does not have much in the way of abdominal pain. His creatinine is currently 3.4 and he will not be able to tolerate a MiraLAX prep unfortunately. He has not had any hematemesis bright red blood per rectum or black tarry bowel movements or excessive diarrhea. The patient's hematocrit at this time is 37.5% with hemoglobin 12.3 g/dL. Home Medications Medication Instructions Recorded Confirmed Type Amiodarone Tab [Cordarone Tab] 200 mg PO DAILY 12/22/15 04/17/17 History Donepezil [Aricept] 10 mg PO BEDTIME 12/22/15 04/17/17 History Famotidine 40 mg PO BEDTIME 12/22/15 04/17/17 History Gabapentin 300 mg PO BEDTIME 12/22/15 04/17/17 History [place]-3 Fatty Acids [Fish Oil 500 mg PO BID 12/22/15 04/17/17 History Concentrate] Polyvinyl Alcohol 1.4% Oph [place] 1 drop BOTH EYES QID PRN 02/04/16 04/17/17 History [Artificial Tears Oph Soln] amLODIPine [Norvasc] 5 mg PO BID 02/04/16 04/17/17 History Budesonide/Formoterol 160-4.5 2 puff INH BID 10/05/16 04/17/17 History [Symbicort 160-4.5] Montelukast Sodium 10 mg PO DAILY 10/05/16 04/17/17 History Furosemide Tab [Lasix Tab] 40 mg PO DAILY 02/23/17 04/17/17 History Lutein 40 mg PO BEDTIME 02/23/17 04/17/17 History Melatonin/Pyridoxine HCl (B6) 6 mg PO BEDTIME 02/23/17 04/17/17 History [Melatonin 3 mg Tablet] Polycarbophil [Fibercon] 625 mg PO DAILY PRN 02/23/17 04/17/17 History Aspirin [Ecotrin] 81 mg PO BEDTIME 04/17/17 04/17/17 History Ciprofloxacin Tab [Cipro Tab] 250 mg PO BID 04/17/17 04/17/17 History Ipratropium/Albuterol Sulfate 3 ml IH TID 04/17/17 04/17/17 History [Iprat-Albut 0.5-3(2.5) mg/3 ml] Loratadine Tab [Claritin Tab] 10 mg PO DAILY 04/17/17 04/17/17 History Multivitamin with Iron 1 each PO DAILY 04/17/17 04/17/17 History [Multivitamins with Iron] Mv-Min/FA/Vit K/Lycop/Lut/Zeax 1 each PO BID 04/17/17 04/17/17 History [Ocuvite Eye + Multi Tablet] Allergies Allergy/AdvReac Type Severity Reaction Status Date / Time No Known Allergies Allergy Verified 12/30/15 15:59 Medical,Surgical,& Family Hx - Medical History Cardio: History of: Cardiac Dysrhythmia (SLOW HEART BEAT.), Hypertension ([place]. MEDICALLY), Pacemaker, Cardiovascular Problems (AFIB HAD CARDIOVERSION IN 2013.DR MAURER) Psychological: History of: Anxiety Disorders ([place]. MEDICALLY), Depression No history of: ADHD, Behavior Problems, Bipolar Disorder, Previous Suicide Attempt, Psychiatric/Substance Abuse Tx, Schizophrenia, Violent Behavior, Psychiatric Problems Neurology: No history of: Seizures HEENT: History of: Ear Problem (hard of hearing), Eye Problem (CATARACTS REMOVED FROM BOTH EYES W/ LENS IMPLANTS.), HEENT Problems (MACULAR DEGENERATION) Rheumatology: History of;: Rheumatological Problems (Arthritis) Respiratory: History of: COPD ([place]. INHALER AND NEBS.), Pneumonia, Respiratory Problems (Bronch with lung Bx) Renal: History of: Renal Failure (HX), Renal Problems (CKD) Genitourinary: History of: Problems (urinary stricture) Gastrointestinal: History of: GERD, GI Problems (VA SAID HE HAD DIARRHEA AND IS ON LOMOTIL.) Musculoskeletal: History of: Back/Neck Problems, Degenerative Disk Disease No history of: Amputation Hematology: History of: Anemia - Surgical History Thoracic Surgeries: Patient denies;: Organ Transplant, Lobectomy Neurologic Surgeries: Patient denies: Neurologic Surgery HEENT Surgeries: Surgical HX of: Eye Surgery (CATARACT SURGERIES X 2.), Tonsilectomy & Adenoidectomy (60 YEARS AGO.) Patient denies: Thyroid Surgery Abdominal Surgeries: Surgical HX of: Appendectomy (JUN 2014. RUPTURE. SURGERY.) , Colonoscopy (NEGATIVE. SEVERAL YEARS AGO.), EGD Reproductive Surgeries: Patient denies;: Genitourinary Surgery Orthopedic Surgeries: Patient denies;: Implanted Devices, Orthopedic Surgery, Spinal Surgery, Total Hip Replacement, Total Knee Replacement - Family History Family History: Reports;: Family Cancer (DAUGHTER HAS COLON CANCER, OVARIAN CANCER, LUNG CANCER BROTHERS.) Denies;: Family Anesthesia Reaction, Family Diabetes, Family Heart Disease, Family Hypertension, Family Psychiatric Problems, Family Stroke - Social History Smoking Status: Former smoker Frequency of Alcohol Use: None Type of Drug Use: None Review of systems: Constitutional: Denies fever, chills, nausea, and vomiting Eyes: Denies dry eyes, and scleral icterus HENT: Denies headaches Cardiovascular: Denies acute chest pain and claudication Respiratory: Admits to recent shortness of breath, wheezing, and difficulty breathing, and mild cough Gastrointestinal: As noted in the HPI Genitourinary: Denies dysuria and hematuria Neurologic: Denies vision loss, and loss of sensation Musculoskeletal: The patient does have joint swelling, joint stiffness, and muscular weakness Psychiatric: Denies depression and jorge symptoms Heme-Lymph: Admits to some easy bruising, but no lymph node enlargement or tenderness, night sweats, excessive bleeding Allergies-immunologic: Denies pruritus and rhinorrhea Exam - Constitutional Vitals: Period Temp Pulse Resp BP Sys/Hackett Pulse Ox Last 24 Hr 96.7 F-98.3 F 60-78 16-22 141-152/66-82 93-99 General appearance: no acute distress - Eye Eye exam: Present: EOMI - ENT ENT exam: Present: normal oropharynx - Respiratory Respiratory exam: Present: decreased breath sounds (In the bases bilaterally) - Cardiovascular Cardiovascular exam: Present: regular rate and rhythm - GI/Abdominal GI/Abdominal exam: Present: normal bowel sounds, distended, soft, other (No rectal exam performed). Absent: guarding, tenderness, rebound - Extremities Exam Extremities exam: Present: edema (1+ in the bilateral lower extremities) - Neurological Exam Neurological exam: Present: alert, oriented X3, altered - Psychiatric Psychiatric exam: Present: normal affect, normal mood - Skin Skin exam: Present: warm Results - Labs CBC & BMP: 04/18/17 05:04 04/18/17 05:04
--- NOTE | 2017-04-22 10:46 | Pulmonology Progress Note ---
Pulmonary - PN: Subj Interval history: This is an 86-year-old male with a history of bilateral lung masses. He was bronchoscoped several weeks ago. He bled with bronchoscoped and was watched overnight and discharged afterwards. He did all right at home but came back with a right pleural effusion which was tapped. Specimens should show metastatic adenocarcinoma thought to have come from the abdomen. Patient being evaluated by oncology. GI has also seen him. The patient was was seen today along with his son and a female family member. He is sitting up in the chair and looks fairly comfortable has no new complaints or requests. Physical exam. Vital signs. See below. Afebrile Psychiatric. Oriented 3 Neurological cranial nerves are intact with decreased hearing acuity bilaterally. Patient moves all fours. Gait was not tested Face symmetrical. No edema of the lips or tongue. Neck. Kyphotic. No meningismus. Chest. Fairly clear with decreased inspiratory excursion Heart. No gallop Abdomen. Nondistended distended. Scattered bowel sounds Extremities. Nothing to suggest deep venous thrombophlebitis. The remainder of the physical exam is negative Plan. 1. Continue workup as per consult Exam (Progress Note) - Constitutional Vitals: Period Temp Pulse Resp BP Sys/Hackett Pulse Ox Last 24 Hr 96.7 F-98.3 F 60-78 16-22 141-152/66-82 93-99 Results - Labs CBC & BMP: 04/18/17 05:04 04/18/17 05:04
--- NOTE | 2017-04-22 11:09 | Ultrasound Report ---
US thyroid Indication: Adenocarcinoma of the lungs. Numerous metastatic lesions. Comparison: None. Technique: Using transcutaneous probe, routine thyroid ultrasound was performed. Ultrasound images were captured and stored. Findings: The right thyroid lobe measures 3.2 x 2.0 x 2.2 cm. The left thyroid measures 2.7 x 1.8 x 1.5 cm. The isthmus measures 3 to 4 mm. Echotexture is minimally heterogeneous bilaterally. Multiple nodules are demonstrated within the right thyroid and at least one nodule is present within the left thyroid. The largest nodule within the right thyroid measures up to 0.91 cm mean diameter with remaining 2 nodules measuring less than 4 mm. The largest right thyroid nodule has cystic and solid component with some punctate echogenicities that could reflect calcification. Remaining thyroid nodules on the right are cystic lesions without internal echotexture. The left thyroid nodule has central increased echotexture with posterior shadowing compatible calcified solid nodule. Color Doppler demonstrates symmetric flow bilaterally within the thyroid gland. Impression: 1. 9 mm nodule within the right thyroid lobe demonstrates cystic and solid morphology with punctate echogenicities within suggesting possible calcification. FNA is recommended to exclude malignant pathology. 2. Calcified nodule left thyroid lobe is demonstrated as detailed. At the minimum, repeat ultrasound in 6 months is recommended to assess stability. 04/22/2017 11:04 AM PROCEDURE INTERPRETED AT [facility] DEPARTMENT OF RADIOLOGY Final Report Signed by: Dr. Trav Kirkland
[2017-04-22] MEDS: BISACODYL 5 MG TABLET PO SCH ×2 (11:26→18:13)
[2017-04-22] MEDS: POLYETHYLENE GLYCOL POWDER 17 GM PACK PO SCH (20:56)
[2017-04-22] MEDS: DONEPEZIL 10 MG TABLET PO SCH (20:57)
[2017-04-22] MEDS: FAMOTIDINE 20 MG TABLET PO SCH (20:57)
[2017-04-22] MEDS: MELATONIN 3 MG TABLET PO SCH (20:57)
[2017-04-22] MEDS: ASPIRIN EC 81 MG TABLET PO SCH (20:58)
[2017-04-22] MEDS: GABAPENTIN 300 MG CAPSULE PO SCH (20:58)
[2017-04-23] MEDS: ALBUTEROL/IPRATROPIUM 3 ML NEB RESP TX SCH ×4 (00:09→19:44)
[2017-04-23] MEDS: BISACODYL 5 MG TABLET PO SCH (02:13)
[2017-04-23 02:46] LABS: Basophils % 0.2 % (0.0-0.8); Hematocrit 35.9 VOL% (42.0-52.0); Hemoglobin 11.8 GM/DL (14.0-18.0); Immature Granulocytes Absolute 0.64 #; Lymphocytes # 0.3 10*3/uL (1.4-4.0); Lymphocytes % 1.7 % (21.2-54.2); Mean Corpuscular HGB Conc 32.9 GM/DL (32-36); Mean Corpuscular Hemoglobin 29 PG (27-34); Mean Corpuscular Volume 87.8 FL (87-102); Mean Platelet Volume 9.6 FL (9.6-12.0); Monocytes # 0.3 10*3/uL (0.11-0.8); Monocytes % 1.9 % (1.7-12.7); Neutrophils # 14.8 10*3/uL (1.4-7.4); Neutrophils % 92.2 % (38.7-73.9); Platelet Count 218 T/CUMM (130-400); Red Blood Count 4.09 MC/CUMM (3.8-5.5); Red Cell Distribution Width 13.5 % (9.3-17.3); White Blood Count 16.1 T/CUMM (4-12)
[2017-04-23 03:11] LABS: Calcium 8.4 MG/DL (8.5-10.1); Osmolality,Calculated 294.1 MOS/KG (273-304); Potassium 5.3 MMOL/L (3.5-5.1)
[2017-04-23 03:53] LABS: Lymphocytes 4 % (20-55); Platelet Estimate Normal; Segmented Neutrophils 95 % (50-85); Total Cells Counted 100
[2017-04-23] MEDS: LORATADINE 10 MG TABLET PO SCH (08:45)
[2017-04-23] MEDS: MULTIVITAMIN (CENTRUM) TABLET PO SCH (08:45)
[2017-04-23] MEDS: AMIODARONE 200 MG TABLET PO SCH (08:46)
[2017-04-23] MEDS: FUROSEMIDE 40 MG TABLET PO SCH (08:47)
[2017-04-23] MEDS: OMEGA 3 ACID ETHYL ESTERS 1 GM CAPSULE PO SCH (08:47)
[2017-04-23] MEDS: POLYETHYLENE GLYCOL POWDER 17 GM PACK PO SCH ×2 (08:48→21:33)
[2017-04-23] MEDS: MULTIVITAMIN (OCUVITE) TABLET PO SCH ×2 (08:49→21:33)
[2017-04-23] MEDS: MONTELUKAST 10 MG TABLET PO SCH (08:49)
[2017-04-23] MEDS: amLODIPine 5 MG TABLET PO SCH ×2 (08:49→21:33)
[2017-04-23] MEDS: methylPREDNISolone SOD SUC 40 MG/1 ML VIAL IV SCH ×2 (08:50→22:21)
[2017-04-23] MEDS: BUDESONIDE/FORMOTEROL 160-4.5 INHALER 6 GM INH SCH ×2 (08:50→21:34)
--- NOTE | 2017-04-23 09:39 | Pulmonology Progress Note ---
Pulmonary - PN: Subj Interval history: This is an 86-year-old male with a history of bilateral lung masses. He was bronchoscoped several weeks ago. He bled with bronchoscoped and was watched overnight and discharged afterwards. He did all right at home but came back with a right pleural effusion which was tapped. Specimens should show metastatic adenocarcinoma thought to have come from the abdomen. Patient being evaluated by oncology. GI has also seen him. The patient was was seen today along with his son and a female family member. He is sitting up in the chair and looks fairly comfortable has no new complaints or requests. 04/23/2017. Patient was seen along with the male family member. He is for colonoscope tomorrow. He is sitting in a chair and appears to be comfortable. He had no new request and he had no new complaints. Sodium is 135. Potassium 5.3. Creatinine is dropped from 3.4-2.80. BUN is 74. CBC is stable. CEA is elevated at 8.2. CA-19-9 is elevated at 2506.5 Physical exam. Vital signs. See below. Afebrile Psychiatric. Oriented 3 Neurological cranial nerves are intact with decreased hearing acuity bilaterally. Patient moves all fours. Gait was not tested Face symmetrical. No edema of the lips or tongue. Neck. Kyphotic. No meningismus. Chest. Fairly clear with decreased inspiratory excursion Heart. No gallop Abdomen. Nondistended distended. Scattered bowel sounds Extremities. Nothing to suggest deep venous thrombophlebitis. The remainder of the physical exam is negative Plan. 04/22/2017 1. Continue workup as per consult 04/23/2017. 1. See today's note above 2. C scope in the morning Exam (Progress Note) - Constitutional Vitals: Period Temp Pulse Resp BP Sys/Hackett Pulse Ox Last 24 Hr 96.6 F-98.6 F 59-81 18-22 155-189/68-82 93-99 Results - Labs CBC & BMP: 04/23/17 01:38 04/23/17 01:38
--- NOTE | 2017-04-23 10:16 | Hospitalist Progress Note ---
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 Small right-sided pleural effusion is associated. 2. No specific etiology of pulmonary metastatic disease is demonstrated. Considerations in addition to GI etiology could include melanoma or thyroid. Thyroid USS showed 9 mm nodule within the right thyroid lobe demonstrates cystic and solid morphology with punctate echogenicities within suggestingpossible calcification. FNA is recommended to exclude malignant pathology. plan IR for a thyroid biopsy GI is planning a colonoscopy Follow PSA level Oncology is following Current Visit: Yes (2) COPD exacerbation Status: Acute Assessment and plan: continue current regime, Pulm is following. 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 Current Visit: Yes (4) Acute on chronic renal failure Status: Acute Assessment and plan: Slowly improving. plan avoid Nephrotoxics BMP in am Current Visit: No Qualifiers: Chronic kidney disease stage: stage 3 (moderate) Hospitalist: Subjective Interval history: Patient was sitting up on a chair, appears comfortable on [place] oxygen. He states he feels pretty good. Thyroid USS showed a 9 mm nodule within the right thyroid lobe.GI is planning a colonoscopy. Exam - Constitutional Vitals: Period Temp Pulse Resp BP Sys/Hackett Pulse Ox Last 24 Hr 96.6 F-98.6 F 59-85 18-22 155-189/68-83 93-99 General appearance: no acute distress - Head Head exam: Present: normal inspection - Respiratory Respiratory exam: Present: clear to auscultation bilaterally, rales - Cardiovascular Cardiovascular exam: Present: regular rate and rhythm - GI/Abdominal GI/Abdominal exam: Present: normal bowel sounds - Extremities Exam Extremities exam: Present: normal inspection - Neurological Exam Neurological exam: Present: alert, oriented X3 Results - Labs CBC & BMP: 04/23/17 01:38 04/23/17 01:38 Lab Results: I have reviewed the past 24 hour labs
--- NOTE | 2017-04-23 14:15 | Gastrointestinal Progress Note ---
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 The CA 19-9 is extremely elevated, notably 2506 (normal equals 0-37), and the CEA level was less elevated at 8.6. To look for subtle pancreatic cancer and laryngeal carcinoma have ordered a MRCP for this patient. He is already had a upper endoscopy done by Dr. Luke Duque along with a partial colonoscopy sometime in the last year and a half over at [facility]. We are obtaining these old records. I suspect that because the colonoscopy was not complete but will have to repeat that on Monday. Clear liquid diet tomorrow with colonic prep in order to proceed with colonoscopy the next day. Unfortunately because of this patient's high creatinine he will require a GoLYTELY prep. Risks of the procedure including bleeding, infection, perforation, cardiac and pulmonary compromise were discussed with the patient prior to the procedure. Further recommendations post colonoscopy, MRCP and review of the records from [place]. 04/23/17--the patient's EGD and colonoscopy from [place] are still pending. He is getting ready to take his bowel prep in order to undergo colonoscopy tomorrow morning. The MRCP is not can be done until Monday or Monday by report from radiology, mainly because of the pacemaker compatibility issues. This information should be quite valuable to us. We could also consider sending the patient directly to a PET scan. Current Visit: Yes (2) Constipation Status: Acute Assessment and plan: Patient does have low-grade constipation would benefit from use of MiraLAX twice daily. He can continue on his diet today but will need to switch over to clear liquids tomorrow in order to prep appropriately. 04/23/17--the patient is in good spirits and about to undergo his bowel prep. Colonoscopy should occur somewhere between 7:00 and 9:00 tomorrow could be his latest 1300. Current Visit: Yes Gastroenterology - PN: Subj Interval history: No new complaints, the patient is enjoying the clear liquid diet. Has not yet started the bowel prep in anticipation of colonoscopy tomorrow. GoLYTELY prep pending. Exam (Progress Note) - Constitutional Vitals: Period Temp Pulse Resp BP Sys/Hackett Pulse Ox Last 24 Hr 97.2 F-98.6 F 60-85 18-20 155-189/68-83 93-99 General appearance: no acute distress - Head Head exam: Present: normocephalic, atraumatic - Eye Eye exam: Present: EOMI Pupils: Present: SOLOMON - Respiratory Respiratory exam: Present: clear to auscultation bilaterally - Cardiovascular Cardiovascular exam: Present: regular rate and rhythm - GI/Abdominal GI/Abdominal exam: Present: normal bowel sounds, distended, soft. Absent: guarding, tenderness, rebound - Extremities Exam Extremities exam: Absent: edema - Back Exam Back exam: Present: normal inspection - Neurological Exam Neurological exam: Present: alert, oriented X3. Absent: altered - Psychiatric Psychiatric exam: Present: normal affect, normal mood - Skin Skin exam: Present: warm Results - Labs CBC & BMP: 04/23/17 01:38 04/23/17 01:38
[2017-04-23] MEDS ORDERED: POLYETHYLENE GLYCOL 3350/ELECTROLYTES 4,000 ML BOTTLE PO ONE (18:00)
[2017-04-23] MEDS ORDERED: MAGNESIUM CITRATE 300 ML BOTTLE PO ONE (21:00)
[2017-04-23] MEDS: DONEPEZIL 10 MG TABLET PO SCH (21:33)
[2017-04-23] MEDS: FAMOTIDINE 20 MG TABLET PO SCH (21:33)
[2017-04-23] MEDS: GABAPENTIN 300 MG CAPSULE PO SCH (21:33)
[2017-04-23] MEDS: ASPIRIN EC 81 MG TABLET PO SCH (21:33)
[2017-04-23] MEDS: MELATONIN 3 MG TABLET PO SCH (21:33)
[2017-04-24] MEDS: ALBUTEROL/IPRATROPIUM 3 ML NEB RESP TX SCH ×4 (00:06→19:01)
--- NOTE | 2017-04-24 06:37 | Oncology Progress Note ---
Oncology Subjective PN Interval history: Diagnostic procedures are continuing for the purposes of working this patient up for the primary site of his adenocarcinoma that is felt to be upper GI/ pancreatic. His CA-19-9,which is 2506.5, is by far the highest tumor marker that we have recorded on him. An alpha-fetoprotein level is normal and a CEA level was only slightly elevated at 8.2. His family has told me that he is not even sure that he will take any type of chemotherapy but I have not discussed this in detail because we have not established a definite primary site. Exam - Constitutional Vitals: Period Temp Pulse Resp BP Sys/Hackett Pulse Ox Last 24 Hr 97.1 F-98 F 60-85 18-22 130-187/65-83 92-922 Results - Labs CBC & BMP: 04/23/17 01:38 04/23/17 01:38
--- NOTE | 2017-04-24 09:00 | Event Note ---
Path report returned showing metastatic adenocarcinoma in the pleural fluid. Patient is getting GI evaluation. Need to watch for recurrence of right pleural effusion. Defer to Dr. Hatfield on management of the metastatic carcinoma. Patient is 86 years old and may decide against having treatment. Needs to know what his options are.
--- NOTE | 2017-04-24 10:44 | Hospitalist Progress Note ---
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 Small right-sided pleural effusion is associated. 2. No specific etiology of pulmonary metastatic disease is demonstrated. Considerations in addition to GI etiology could include melanoma or thyroid. Thyroid USS showed 9 mm nodule within the right thyroid lobe demonstrates cystic and solid morphology with punctate echogenicities within suggestingpossible calcification. FNA is recommended to exclude malignant pathology. His family has told Oncology that he is not even sure that he will take any type of chemotherapy. plan Follow thyroid biopsy and colonoscopy Follow PSA level Oncology is following Current Visit: Yes (2) COPD exacerbation Status: Acute Assessment and plan: continue current regime, Pulm is following. 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 Current Visit: Yes (4) Acute on chronic renal failure Status: Acute Assessment and plan: Slowly improving. plan avoid Nephrotoxics BMP in am Current Visit: No Qualifiers: Chronic kidney disease stage: stage 3 (moderate) Hospitalist: Subjective Interval history: Patient has gone for a colonoscopy and possible thyroid biopsy this am.No major events overnight. Exam - Constitutional Vitals: Period Temp Pulse Resp BP Sys/Hackett Pulse Ox Last 24 Hr 97.1 F-97.8 F 60-84 16-22 130-169/65-062 92-922 General appearance: no acute distress - Head Head exam: Present: normal inspection - Respiratory Respiratory exam: Present: decreased breath sounds - Cardiovascular Cardiovascular exam: Present: regular rate and rhythm - GI/Abdominal GI/Abdominal exam: Present: normal bowel sounds - Extremities Exam Extremities exam: Present: normal inspection - Neurological Exam Neurological exam: Present: alert, oriented X3 Results - Labs CBC & BMP: 04/23/17 01:38 04/23/17 01:38 Lab Results: I have reviewed the past 24 hour labs
--- NOTE | 2017-04-24 15:15 | Operative Note ---
Date of procedure: 04/24/17 Pre-op diagnosis: Patient with multiple nodules in the liver, elevated CEA Post-op diagnosis: other (Multiple polyps some of these large removed from the ascending descending and rectal regions of the colon, heavy left-sided diverticulosis, moderate size internal hemorrhoids.) Procedure: PROCEDURE: Colonoscopy with hot biopsy polypectomy and hot snare polyp REFERRING PHYSICIAN: Mert Velásquez MD INDICATIONS: Multiple nodules in the liver, elevated CEA level, elevated CA 19-9 The prior H&P was reviewed and interrim changes are as noted: No change from GI consultation 2 days ago ENDOSCOPIST: Ashkan Warner MD ENDOSCOPE: [employer] Video 100 System colonoscope COLON PREPARATION: 238 gm of PEG containing laxative and 1.9 liters of gatoraid/sports drink and dulcolax 15 mg q8 hours x 3 ASA CLASS: 4 EXAM: CV: regular rate and rhythm Respiratory: Clear without wheezes Abdominal: active bowel sounds Rectal: Good tone, no fissures or fistulas MEDICATION: Per nursing anesthesia protocol, see their notes PROCEDURE: After discussion of the potential risks and benefits of colonoscopy, the informed consent was obtained, from patient or health care surrogate. The patient was then placed in the left lateral decubitus position where sedation was achieved as noted above. Rectal examination was followed by insertion of the colonoscope. The colonoscope was passed under direct visualization to the cecum. Advancement was facilitated by insertion/withdrawl techniques, abdominal pressure and patient positioning. Once the cecal pole was reached, slow withdrawal was performed with the findings as noted below. The patient tolerated the procedure well and without complication. QUALITY OF PREP: Excellent WITHDRAWL TIME: 10 minutes 33 seconds BIOPSIES: Ascending polyp, descending polyps, rectal polyps PHOTOGRAPHS: Obtained FINDINGS: The musoca appeared normal in the following regions: rectum, sigmoid colon, descending colon, splenic flexure, transverse colon, hepatic flexure, ascending colon and cecum. Position within the cecum was confirmed by ileocecal valve, appendiceal oriface, and the convergence of folds (crows foot) . No colitis, mass or AVM was noted throughout the colon. Heavy left-sided diverticulosis noted. Multiple polyps removed in the rectal area between 5 and 7 mm removed by hot biopsy, there were 2 polyps noted in the descending colon at 1 cm and 8 mm removed by hot snare polypectomy and another 1 cm polyp removed by hot snare polypectomy in the ascending colon. Intubation of the TI was achieved x 5 cm with normal appearence, there was no evidence of cancer throughout the colon. IMPRESSION: Multiple polyps some of these large removed from the ascending descending and rectal regions of the colon, heavy left-sided diverticulosis, moderate size internal hemorrhoids. RECOMMENDATIONS: High fiber diet Repeat colonosocopy will be in 3 years for greater than 3 adenomas, 5 years for 1-3 adenomas, or 10 years for hyperplastic polyps (only) or if no polyps discovered. Await MRCP looking for evidence of pancreatic source for the patient's tumor. No source for colon cancer was seen here, one could make the argument not to do any further colorectal cancer screening given this patient's age. Citrucel 1 tablespoon in 12 oz juice BID: 1 bottle: :11 Follow up by phone for biopsy results in 1-2 weeks by phone Ashkan Warner MD COPY TO: Mert Velásquez MD Anesthesia: MAC Surgeon / Physician: Ashkan Warner Estimated blood loss: minimal Specimens: other (Ascending polyp, descending polyps, rectal polyps) Condition: stable Disposition: post procedure unit ([facility]I. Suite) Results - Labs CBC & BMP: 04/23/17 01:38 04/23/17 01:38 Discharge Plan - Discharge Medications No Action [place]-3 Fatty Acids [Fish Oil Concentrate] 500 mg PO BID Gabapentin 300 mg PO BEDTIME Famotidine 40 mg PO BEDTIME Donepezil [Aricept] 10 mg PO BEDTIME Amiodarone Tab [Cordarone Tab] 200 mg PO DAILY amLODIPine [Norvasc] 5 mg PO BID Polyvinyl Alcohol 1.4% Oph Alva [Artificial Tears Oph Soln] 1 drop BOTH EYES QID PRN PRN Reason: Dry Eyes Montelukast Sodium 10 mg PO DAILY Polycarbophil [Fibercon] 625 mg PO DAILY PRN PRN Reason: Constipation Lutein 40 mg PO BEDTIME Ipratropium/Albuterol Sulfate [Iprat-Albut 0.5-3(2.5) mg/3 ml] 3 ml IH TID Ciprofloxacin Tab [Cipro Tab] 250 mg PO BID Aspirin [Ecotrin] 81 mg PO BEDTIME Mv-Min/FA/Vit K/Lycop/Lut/Zeax [Ocuvite Eye + Multi Tablet] 1 each PO BID Multivitamin with Iron [Multivitamins with Iron] 1 each PO DAILY Budesonide/Formoterol 160-4.5 [Symbicort 160-4.5] 2 puff INH BID Melatonin/Pyridoxine HCl (B6) [Melatonin 3 mg Tablet] 6 mg PO BEDTIME Furosemide Tab [Lasix Tab] 40 mg PO DAILY Loratadine Tab [Claritin Tab] 10 mg PO DAILY - Follow Up or Referral - Forms/Instructions
[2017-04-24] MEDS: MULTIVITAMIN (CENTRUM) TABLET PO SCH (15:16)
[2017-04-24] MEDS: LORATADINE 10 MG TABLET PO SCH (15:16)
[2017-04-24] MEDS: MULTIVITAMIN (OCUVITE) TABLET PO SCH ×2 (15:17→22:07)
[2017-04-24] MEDS: OMEGA 3 ACID ETHYL ESTERS 1 GM CAPSULE PO SCH (15:17)
[2017-04-24] MEDS: FUROSEMIDE 40 MG TABLET PO SCH (15:17)
[2017-04-24] MEDS: AMIODARONE 200 MG TABLET PO SCH (15:17)
[2017-04-24] MEDS: amLODIPine 5 MG TABLET PO SCH ×2 (15:17→22:07)
[2017-04-24] MEDS: POLYETHYLENE GLYCOL POWDER 17 GM PACK PO SCH ×2 (15:17→22:10)
--- NOTE | 2017-04-24 15:17 | Anesthesia Post-Op ---
Anesthesia Post OP - Post Ansesthetic Evaluation Patient seen in post op: Yes Resp: within normal limits CV: within normal limits Mental: within normal limits Temp: within normal limits Lvdc-Fh-Sfnmitdct: within normal limits Nausea and Vomiting: within normal limits Pain: within normal limits
[2017-04-24] MEDS: methylPREDNISolone SOD SUC 40 MG/1 ML VIAL IV SCH ×2 (15:18→22:05)
[2017-04-24] MEDS: MONTELUKAST 10 MG TABLET PO SCH (15:18)
--- NOTE | 2017-04-24 15:24 | Gastrointestinal Progress Note ---
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 The CA 19-9 is extremely elevated, notably 2506 (normal equals 0-37), and the CEA level was less elevated at 8.6. To look for subtle pancreatic cancer and laryngeal carcinoma have ordered a MRCP for this patient. He is already had a upper endoscopy done by Dr. Luke Duque along with a partial colonoscopy sometime in the last year and a half over at [facility]. We are obtaining these old records. I suspect that because the colonoscopy was not complete but will have to repeat that on Monday. Clear liquid diet tomorrow with colonic prep in order to proceed with colonoscopy the next day. Unfortunately because of this patient's high creatinine he will require a GoLYTELY prep. Risks of the procedure including bleeding, infection, perforation, cardiac and pulmonary compromise were discussed with the patient prior to the procedure. Further recommendations post colonoscopy, MRCP and review of the records from [place]. 04/23/17--the patient's EGD and colonoscopy from [place] are still pending. He is getting ready to take his bowel prep in order to undergo colonoscopy tomorrow morning. The MRCP is not can be done until Monday or Monday by report from radiology, mainly because of the pacemaker compatibility issues. This information should be quite valuable to us. We could also consider sending the patient directly to a PET scan. 04/24/17--The colonoscopy was completed today and demonstrated the following: Multiple polyps, some of these large, removed from the ascending, descending and rectal regions of the colon, heavy left-sided diverticulosis, moderate size internal hemorrhoids. No source of cancer seen during the colonoscopy. Were the patient not 86 years old and would likely tell them to repeat colonoscopy in 3-5 years--for this patient repeat colonoscopy will depend on his health when the next comes due. Current Visit: Yes (2) Constipation Status: Acute Assessment and plan: Patient does have low-grade constipation would benefit from use of MiraLAX twice daily. He can continue on his diet today but will need to switch over to clear liquids tomorrow in order to prep appropriately. 04/23/17--the patient is in good spirits and about to undergo his bowel prep. Colonoscopy should occur somewhere between 7:00 and 9:00 tomorrow could be his latest 1300. 04/24/17--Constipation is controlled for the present time. Current Visit: Yes Gastroenterology - PN: Subj Interval history: No new complaints, patient is hungry as we were not able to get the colonoscopy until late in the afternoon. Exam (Progress Note) - Constitutional Vitals: Period Temp Pulse Resp BP Sys/Hackett Pulse Ox Last 24 Hr 97.1 F-98.0 F 60-92 16-22 130-184/62-062 92-922 General appearance: normal weight - Eye Eye exam: Present: EOMI - Respiratory Respiratory exam: Present: clear to auscultation bilaterally. Absent: stridor, wheezes - Cardiovascular Cardiovascular exam: Present: regular rate and rhythm - GI/Abdominal GI/Abdominal exam: Present: normal bowel sounds, distended, tenderness, soft. Absent: guarding, rebound - Neurological Exam Neurological exam: Present: alert, oriented X3, CN II-XII intact - Psychiatric Psychiatric exam: Present: normal affect, normal mood Results - Labs CBC & BMP: 04/23/17 01:38 04/23/17 01:38
[2017-04-24] MEDS: BUDESONIDE/FORMOTEROL 160-4.5 INHALER 6 GM INH SCH ×2 (16:10→22:06)
[2017-04-24] MEDS: DONEPEZIL 10 MG TABLET PO SCH (22:07)
[2017-04-24] MEDS: FAMOTIDINE 20 MG TABLET PO SCH (22:07)
[2017-04-24] MEDS: GABAPENTIN 300 MG CAPSULE PO SCH (22:07)
[2017-04-24] MEDS: ASPIRIN EC 81 MG TABLET PO SCH (22:07)
[2017-04-24] MEDS: MELATONIN 3 MG TABLET PO SCH (22:08)
[2017-04-25] MEDS: ALBUTEROL/IPRATROPIUM 3 ML NEB RESP TX SCH ×4 (01:27→19:35)
[2017-04-25 05:03] LABS: Basophils % 0.1 % (0.0-0.8); Hematocrit 38.1 VOL% (42.0-52.0); Hemoglobin 12.4 GM/DL (14.0-18.0); Immature Granulocytes % 2.3 %; Lymphocytes # 0.4 10*3/uL (1.4-4.0); Lymphocytes % 1.8 % (21.2-54.2); Mean Corpuscular HGB Conc 32.5 GM/DL (32-36); Mean Corpuscular Hemoglobin 29 PG (27-34); Mean Corpuscular Volume 89.2 FL (87-102); Mean Platelet Volume 9.8 FL (9.6-12.0); Monocytes # 0.4 10*3/uL (0.11-0.8); Monocytes % 1.7 % (1.7-12.7); Neutrophils # 20.2 10*3/uL (1.4-7.4); Neutrophils % 94.1 % (38.7-73.9); Platelet Count 225 T/CUMM (130-400); Red Blood Count 4.27 MC/CUMM (3.8-5.5); Red Cell Distribution Width 13.9 % (9.3-17.3); White Blood Count 21.5 T/CUMM (4-12)
[2017-04-25 05:17] LABS: Calcium 8.6 MG/DL (8.5-10.1); Osmolality,Calculated 299.4 MOS/KG (273-304); Potassium 5.7 MMOL/L (3.5-5.1)
[2017-04-25 06:06] LABS: Hypochromasia Slight; Lymphocytes 1 % (20-55); Platelet Estimate Adequate; Segmented Neutrophils 99 % (50-85); Total Cells Counted 100
--- NOTE | 2017-04-25 08:21 | Oncology Progress Note ---
Oncology Subjective PN Interval history: We still have no obvious primary site of this malignancy within the abdomen. MR angiogram has been ordered. We will await the results of the study. Exam - Constitutional Vitals: Period Temp Pulse Resp BP Sys/Hackett Pulse Ox Last 24 Hr 96.9 F-98.3 F 60-92 16-22 151-184/59-76 92-100 Results - Labs CBC & BMP: 04/25/17 03:37 04/25/17 03:37
--- NOTE | 2017-04-25 08:38 | Pulmonology Progress Note ---
Pulmonary - PN: Subj Interval history: This 86-year-old white male was here about 6 weeks ago. He had a superior segment left lower lobe unresolved pneumonia appearance by CT. We did a bronchoscope with transbronchial biopsies that came back benign except for some class III cytology brushings. He had significant bleeding and washed him in the CCU overnight. He was discharged on Monday by Dr. Lipscomb in my absence. I saw him back in the clinic with SLADE Uribe. That was on 03/13/2017 and he was doing better. The x-ray at that time showed some pleural blunting on the right side and a left hilar infiltrate that was slightly better than when he was in the hospital. He went home and came back with increased cough shortness of breath and now has a large right pleural effusion. We need to do a thoracentesis on that today. 04/19/2017 chest x-ray postthoracentesis looks okay. Pleural fluid is clearly exudative. Await cytology and cultures. I think this is likely to be a malignancy. If cytology is negative then we could either have interventional radiology do a needle biopsy of the left lung lesion, or thoracic surgery do a VATS biopsy of right pleural. 04/20/2017 cytology not reported as yet. Cultures were negative. Plan to repeat chest x-ray tomorrow. If cytology is negative then we may want to get needle biopsy done, or VATS pleural biopsy. 04/21/2017 once again cytology is not reported yet. Await word from that before deciding where to go next. Patient is 86 years old and probably will not want chemotherapy. However he needs a diagnosis for prognostic purposes. 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 As recurrence of his right pleural effusion now almost as much as when he came in. He is not real symptomatic at this point. May need to have a pleural catheter placed and pleurodesis done. This would be for symptomatic care. Await final results on decision on chemotherapy. Exam (Progress Note) - Constitutional Vitals: Period Temp Pulse Resp BP Sys/Hackett Pulse Ox Last 24 Hr 96.9 F-98.3 F 60-92 16-22 151-184/59-76 92-100 Exam: Patient's alert afebrile. Vital signs normal. Pupils react to light. Throat is clear. Neck supple no bruits. Chest reveals dullness on the right now. A few rhonchi and rales over the superior segment left lower lobe and increased breath sounds there. Heart normal rate rhythm no murmurs. Abdomen soft nontender no masses. Extremities no clubbing cyanosis. No edema. Calves nontender. Homans test negative. Little change from yesterday. Results - Labs CBC & BMP: 04/25/17 03:37 04/25/17 03:37 Lab Results: I have reviewed the past 24 hour labs - Diagnostic Findings Procedure: Chest x-ray: image reviewed by me (Moderate right pleural effusion. Left mid lung mass.) Assessment and Plan (1) Pleural effusion on right Status: Acute Assessment and plan: This has occurred in the last month. Differential would be between an infection malignant process or due to congestive heart failure/renal failure. Will obtain pleural fluid with a right thoracentesis this morning. 04/19/2017 await cytology and cultures. Very concerned about a multicentric pulmonary malignancy. 04/20/2017 cultures negative thus far. Cytology not reported. I am very suspicious of a malignancy. 04/21/2017 exudative right pleural effusion. Very suspicious for metastatic disease. Cytology has not been reported. Also has mass in superior segment left lower lobe. I biopsied this a few weeks ago and it bled significantly and did not give a diagnosis. If he needs further studies done he would need a needle biopsy of the left lung mass or VATS biopsy of the right pleura. 04/25/2017 the pleural effusion has returned. Will make decision on whether to do a pleural catheter and pleurodesis, depending on where the primary tumor is and whether the patient is going to get chemotherapy. He is not terribly symptomatic at present. If he is going to get chemotherapy would not do a pleurodesis right now. If the decision is made for symptomatic care then pleurodesis would be indicated. Current Visit: Yes (2) COPD (chronic obstructive pulmonary disease) Status: Acute Assessment and plan: Bronchodilators and antibiotic steroids. 04/19/2017 continue current medications. We can reduce the steroids a bit. 04/20/2017 continuing bronchodilators steroids and antibiotics empirically. 04/21/2017 patient is feeling better. Taper steroids. 04/25/2017 no bronchospasm. Current Visit: Yes (3) Acute on chronic renal failure Status: Acute Assessment and plan: May need to have nephrology see him. Creatinine is 3.4. Depending on what the pleural fluid looks like he may need diuresing. 04/19/2017 follow creatinine. 04/20/2017 creatinine slightly higher. 04/25/2017 creatinine down to 2.4. Current Visit: No Qualifiers: Chronic kidney disease stage: stage 3 (moderate) (4) Bilateral lower lobe lung mass Status: Acute Assessment and plan: Has multiple nodules bilaterally with the largest one in the superior segment left lower lobe. I would be concerned about a bronchoalveolar cell carcinoma. If we do not get an answer from the thoracentesis we may need to have interventional radiology to do a needle biopsy of the left lung lesion. He bled so easily from transbronchial biopsy last month that I do not want to do another one. 04/20/2017 await cytology from pleural fluid before making decision on next step. Patient is not a good candidate for chemotherapy, because I would not be very aggressive on getting a diagnosis but he probably could tolerate a needle biopsy. 04/21/2017 suspicious for metastatic malignancy. May be a multifocal lung cancer. However we still await pleural fluid cytology. 04/25/2017 cytology on pleural fluid has shown metastatic adenocarcinoma. Looking for primary site. 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 Current Visit: No
[2017-04-25] MEDS: MULTIVITAMIN (CENTRUM) TABLET PO SCH (09:19)
[2017-04-25] MEDS: MULTIVITAMIN (OCUVITE) TABLET PO SCH ×2 (09:19→21:45)
[2017-04-25] MEDS: AMIODARONE 200 MG TABLET PO SCH (09:20)
[2017-04-25] MEDS: amLODIPine 5 MG TABLET PO SCH ×2 (09:20→21:46)
[2017-04-25] MEDS: MONTELUKAST 10 MG TABLET PO SCH (09:20)
[2017-04-25] MEDS: FUROSEMIDE 40 MG TABLET PO SCH (09:20)
[2017-04-25] MEDS: methylPREDNISolone SOD SUC 40 MG/1 ML VIAL IV SCH ×2 (09:21→21:45)
[2017-04-25] MEDS: LORATADINE 10 MG TABLET PO SCH (09:21)
[2017-04-25] MEDS: BUDESONIDE/FORMOTEROL 160-4.5 INHALER 6 GM INH SCH ×2 (09:22→21:44)
[2017-04-25] MEDS: OMEGA 3 ACID ETHYL ESTERS 1 GM CAPSULE PO SCH (09:23)
[2017-04-25] MEDS: POLYETHYLENE GLYCOL POWDER 17 GM PACK PO SCH ×2 (09:23→21:45)
--- NOTE | 2017-04-25 10:57 | XRay Report ---
XR chest 2V Indication: Right pleural effusion Comparison: Chest x-ray dated April 21, 2017 Technique: Frontal and lateral views of the chest. Findings: Considering change in technique, there is been no significant change in cardiomegaly, bilateral pulmonary opacification and moderate right pleural fluid. Pacemaker apparatus again demonstrated. Visualized osseous and surrounding soft tissue structures appear grossly unchanged. IMPRESSION: No significant interval change. PROCEDURE INTERPRETED AT [facility] DEPARTMENT OF RADIOLOGY Final Report Signed by: Dr Chris Blank
--- NOTE | 2017-04-25 11:50 | Hospitalist Progress Note ---
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 Small right-sided pleural effusion is associated. 2. No specific etiology of pulmonary metastatic disease is demonstrated. Considerations in addition to GI etiology could include melanoma or thyroid. Thyroid USS showed 9 mm nodule within the right thyroid lobe demonstrates cystic and solid morphology with punctate echogenicities within suggestingpossible calcification. FNA is recommended to exclude malignant pathology. His family has told Oncology that he is not even sure that he will take any type of chemotherapy. Colonoscopy showed multiple polyps with no source of cancer seen. Thyroid biopsy to be done as outpt. plan MRCP has been scheduled for tomorrow. Oncology and Pulm are following Current Visit: Yes (2) COPD exacerbation Status: Acute Assessment and plan: continue current regime, Pulm is following. 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 Current Visit: Yes (4) Acute on chronic renal failure Status: Acute Assessment and plan: Slowly improving. plan avoid Nephrotoxics BMP in am Current Visit: No Qualifiers: Chronic kidney disease stage: stage 3 (moderate) Hospitalist: Subjective Interval history: Patient seen today. He was sitting up in bed. He states he feels pretty good. Colonoscopy showed multiple polyps with no source of cancer seen. Thyroid biopsy will have to be done as outpt. Exam - Constitutional Vitals: Period Temp Pulse Resp BP Sys/Hackett Pulse Ox Last 24 Hr 96.9 F-98.3 F 60-92 16-22 152-184/59-76 92-100 General appearance: no acute distress - Head Head exam: Present: normal inspection - Respiratory Respiratory exam: Present: clear to auscultation bilaterally - Cardiovascular Cardiovascular exam: Present: regular rate and rhythm - GI/Abdominal GI/Abdominal exam: Present: normal bowel sounds - Extremities Exam Extremities exam: Present: normal inspection - Neurological Exam Neurological exam: Present: alert, oriented X3 Results - Labs CBC & BMP: 04/25/17 03:37 04/25/17 03:37 Lab Results: I have reviewed the past 24 hour labs
[2017-04-25] MEDS ORDERED: SODIUM POLYSTYRENE SULFATE 15 GM/60 ML BOTTLE PO STA (11:51)
--- NOTE | 2017-04-25 15:02 | Gastrointestinal Progress Note ---
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 The CA 19-9 is extremely elevated, notably 2506 (normal equals 0-37), and the CEA level was less elevated at 8.6. To look for subtle pancreatic cancer and laryngeal carcinoma have ordered a MRCP for this patient. He is already had a upper endoscopy done by Dr. Luke Duque along with a partial colonoscopy sometime in the last year and a half over at [facility]. We are obtaining these old records. I suspect that because the colonoscopy was not complete but will have to repeat that on Monday. Clear liquid diet tomorrow with colonic prep in order to proceed with colonoscopy the next day. Unfortunately because of this patient's high creatinine he will require a GoLYTELY prep. Risks of the procedure including bleeding, infection, perforation, cardiac and pulmonary compromise were discussed with the patient prior to the procedure. Further recommendations post colonoscopy, MRCP and review of the records from [place]. 04/23/17--the patient's EGD and colonoscopy from [place] are still pending. He is getting ready to take his bowel prep in order to undergo colonoscopy tomorrow morning. The MRCP is not can be done until Monday or Monday by report from radiology, mainly because of the pacemaker compatibility issues. This information should be quite valuable to us. We could also consider sending the patient directly to a PET scan. 04/24/17--The colonoscopy was completed today and demonstrated the following: Multiple polyps, some of these large, removed from the ascending, descending and rectal regions of the colon, heavy left-sided diverticulosis, moderate size internal hemorrhoids. No source of cancer seen during the colonoscopy. Were the patient not 86 years old and would likely tell them to repeat colonoscopy in 3-5 years--for this patient repeat colonoscopy will depend on his health when the next comes due. 04/25/17--Results of the patient's previous upper endoscopy have come back from [facility] apparently this was performed on 02/08/[address] Duque this demonstrated some fungal esophagitis as well as some mild gastritis that proved to be Helicobacter pylori negative. No masses were seen suspicious for cancer. Note that the patient's colonoscopy yesterday did show multiple polyps but no cancer as well. 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 He will likely have to come back in 3-5 years for repeat colonoscopy. Current Visit: Yes (2) Constipation Status: Acute Assessment and plan: Patient does have low-grade constipation would benefit from use of MiraLAX twice daily. He can continue on his diet today but will need to switch over to clear liquids tomorrow in order to prep appropriately. 04/23/17--the patient is in good spirits and about to undergo his bowel prep. Colonoscopy should occur somewhere between 7:00 and 9:00 tomorrow could be his latest 1300. 04/24/17--Constipation is controlled for the present time. 04/25/17--constipation still controlled. Possible discharge tomorrow if the MRCP can be done and if no biopsy is required. Current Visit: Yes Gastroenterology - PN: Subj Interval history: Considering the pathology that initially showed that this was an adenocarcinoma potential upper GI source versus pancreatic source with an elevated CA 19-9 we have been awaiting the results of the MRCP. I believe this has not been done due to issues with the pacemaker and having to have a pacemaker rep on standby as the procedure is done in case there are issues. The patient states that he feels much better and is anxious to get out of the hospital. Results of the patient's previous upper endoscopy have come back from [facility] apparently this was performed on 02/08/[address] Duque this demonstrated some fungal esophagitis as well as some mild gastritis that proved to be Helicobacter pylori negative. No masses were seen suspicious for cancer. Note that the patient's colonoscopy yesterday did show multiple polyps but no cancer as well. Exam (Progress Note) - Constitutional Vitals: Period Temp Pulse Resp BP Sys/Hackett Pulse Ox Last 24 Hr 96.9 F-98.3 F 60-88 16-22 152-182/59-86 92-100 General appearance: mild distress - Head Head exam: Present: normal inspection - Eye Eye exam: Present: EOMI - Respiratory Respiratory exam: Present: clear to auscultation bilaterally - Cardiovascular Cardiovascular exam: Present: regular rate and rhythm. Absent: systolic murmur - GI/Abdominal GI/Abdominal exam: Present: normal bowel sounds, distended, soft. 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 Absent: edema - Neurological Exam Neurological exam: Present: alert, oriented X3 - Psychiatric Psychiatric exam: Present: normal affect, normal mood - Skin Skin exam: Present: warm Results - Labs CBC & BMP: 04/25/17 03:37 04/25/17 03:37
[2017-04-25] MEDS: ASPIRIN EC 81 MG TABLET PO SCH (21:46)
[2017-04-25] MEDS: DONEPEZIL 10 MG TABLET PO SCH (21:46)
[2017-04-25] MEDS: MELATONIN 3 MG TABLET PO SCH (21:46)
[2017-04-25] MEDS: GABAPENTIN 300 MG CAPSULE PO SCH (21:47)
[2017-04-25] MEDS: FAMOTIDINE 20 MG TABLET PO SCH (21:50)
[2017-04-26] MEDS: ALBUTEROL/IPRATROPIUM 3 ML NEB RESP TX SCH ×4 (00:22→19:06)
[2017-04-26 06:35] LABS: Basophils % 0.2 % (0.0-0.8); Hematocrit 37.3 VOL% (42.0-52.0); Hemoglobin 12.2 GM/DL (14.0-18.0); Immature Granulocytes % 4.1 %; Immature Granulocytes Absolute 0.82 #; Lymphocytes # 0.3 10*3/uL (1.4-4.0); Lymphocytes % 1.6 % (21.2-54.2); Mean Corpuscular HGB Conc 32.7 GM/DL (32-36); Mean Corpuscular Hemoglobin 29 PG (27-34); Mean Corpuscular Volume 89.7 FL (87-102); Mean Platelet Volume 9.7 FL (9.6-12.0); Monocytes # 0.5 10*3/uL (0.11-0.8); Monocytes % 2.3 % (1.7-12.7); Neutrophils # 18.1 10*3/uL (1.4-7.4); Neutrophils % 91.8 % (38.7-73.9); Platelet Count 203 T/CUMM (130-400); Red Blood Count 4.16 MC/CUMM (3.8-5.5); Red Cell Distribution Width 13.9 % (9.3-17.3); White Blood Count 19.8 T/CUMM (4-12)
[2017-04-26 07:05] LABS: Band Neutrophils 1 % (0-10); Hypochromasia 1+; Lymphocytes 1 % (20-55); Platelet Estimate Adequate; Segmented Neutrophils 97 % (50-85); Total Cells Counted 100
--- NOTE | 2017-04-26 07:09 | Oncology Progress Note ---
Oncology Subjective PN Interval history: MRCP pending. I hope we can get it done today. Once we do, we will discuss palliative chemotherapy with him. I am not sure that he will accept it, however. Exam - Constitutional Vitals: Period Temp Pulse Resp BP Sys/Hackett Pulse Ox Last 24 Hr 96.1 F-98.3 F 60-88 16-22 143-189/71-86 93-99 Results - Labs CBC & BMP: 04/26/17 05:37 04/26/17 05:37
[2017-04-26 07:11] LABS: Calcium 8.5 MG/DL (8.5-10.1); Osmolality,Calculated 300.3 MOS/KG (273-304); Potassium 5.9 MMOL/L (3.5-5.1)
--- NOTE | 2017-04-26 08:01 | Pulmonology Progress Note ---
Pulmonary - PN: Subj Interval history: This 86-year-old white male was here about 6 weeks ago. He had a superior segment left lower lobe unresolved pneumonia appearance by CT. We did a bronchoscope with transbronchial biopsies that came back benign except for some class III cytology brushings. He had significant bleeding and washed him in the CCU overnight. He was discharged on Monday by Dr. Lipscomb in my absence. I saw him back in the clinic with SLADE Uribe. That was on 03/13/2017 and he was doing better. The x-ray at that time showed some pleural blunting on the right side and a left hilar infiltrate that was slightly better than when he was in the hospital. He went home and came back with increased cough shortness of breath and now has a large right pleural effusion. We need to do a thoracentesis on that today. 04/19/2017 chest x-ray postthoracentesis looks okay. Pleural fluid is clearly exudative. Await cytology and cultures. I think this is likely to be a malignancy. If cytology is negative then we could either have interventional radiology do a needle biopsy of the left lung lesion, or thoracic surgery do a VATS biopsy of right pleural. 04/20/2017 cytology not reported as yet. Cultures were negative. Plan to repeat chest x-ray tomorrow. If cytology is negative then we may want to get needle biopsy done, or VATS pleural biopsy. 04/21/2017 once again cytology is not reported yet. Await word from that before deciding where to go next. Patient is 86 years old and probably will not want chemotherapy. However he needs a diagnosis for prognostic purposes. 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 As recurrence of his right pleural effusion now almost as much as when he came in. He is not real symptomatic at this point. May need to have a pleural catheter placed and pleurodesis done. This would be for symptomatic care. Await final results on decision on chemotherapy. 04/26/17 the right pleural effusion is not causing a lot of symptoms right now. At some point he will need a pleural catheter and pleurodesis. Await word on the primary site and plans for treatment. Exam (Progress Note) - Constitutional Vitals: Period Temp Pulse Resp BP Sys/Hackett Pulse Ox Last 24 Hr 96.1 F-98.0 F 60-88 16-22 143-189/71-86 93-99 Exam: Patient's alert afebrile. Vital signs normal. Pupils react to light. Throat is clear. Neck supple no bruits. Chest reveals dullness on the right now. A few rhonchi and rales over the superior segment left lower lobe and increased breath sounds there. Heart normal rate rhythm no murmurs. Abdomen soft nontender no masses. Extremities no clubbing cyanosis. No edema. Calves nontender. Homans test negative. Little change from yesterday. Results - Labs CBC & BMP: 04/26/17 05:37 04/26/17 05:37 Lab Results: I have reviewed the past 24 hour labs Assessment and Plan (1) Pleural effusion on right Status: Acute Assessment and plan: This has occurred in the last month. Differential would be between an infection malignant process or due to congestive heart failure/renal failure. Will obtain pleural fluid with a right thoracentesis this morning. 04/19/2017 await cytology and cultures. Very concerned about a multicentric pulmonary malignancy. 04/20/2017 cultures negative thus far. Cytology not reported. I am very suspicious of a malignancy. 04/21/2017 exudative right pleural effusion. Very suspicious for metastatic disease. Cytology has not been reported. Also has mass in superior segment left lower lobe. I biopsied this a few weeks ago and it bled significantly and did not give a diagnosis. If he needs further studies done he would need a needle biopsy of the left lung mass or VATS biopsy of the right pleura. 04/25/2017 the pleural effusion has returned. Will make decision on whether to do a pleural catheter and pleurodesis, depending on where the primary tumor is and whether the patient is going to get chemotherapy. He is not terribly symptomatic at present. If he is going to get chemotherapy would not do a pleurodesis right now. If the decision is made for symptomatic care then pleurodesis would be indicated. 04/26/17 on standby to get pleural catheter and pleurodesis done Current Visit: Yes (2) COPD (chronic obstructive pulmonary disease) Status: Acute Assessment and plan: Bronchodilators and antibiotic steroids. 04/19/2017 continue current medications. We can reduce the steroids a bit. 04/20/2017 continuing bronchodilators steroids and antibiotics empirically. 04/21/2017 patient is feeling better. Taper steroids. 04/25/2017 no bronchospasm. 04/26/17 no wheezing continue current treatment Current Visit: Yes (3) Acute on chronic renal failure Status: Acute Assessment and plan: May need to have nephrology see him. Creatinine is 3.4. Depending on what the pleural fluid looks like he may need diuresing. 04/19/2017 follow creatinine. 04/20/2017 creatinine slightly higher. 04/25/2017 creatinine down to 2.4. 04/26/17 creatinine stable around 2.7. Current Visit: No Qualifiers: Chronic kidney disease stage: stage 3 (moderate) (4) Bilateral lower lobe lung mass Status: Acute Assessment and plan: Has multiple nodules bilaterally with the largest one in the superior segment left lower lobe. I would be concerned about a bronchoalveolar cell carcinoma. If we do not get an answer from the thoracentesis we may need to have interventional radiology to do a needle biopsy of the left lung lesion. He bled so easily from transbronchial biopsy last month that I do not want to do another one. 04/20/2017 await cytology from pleural fluid before making decision on next step. Patient is not a good candidate for chemotherapy, because I would not be very aggressive on getting a diagnosis but he probably could tolerate a needle biopsy. 04/21/2017 suspicious for metastatic malignancy. May be a multifocal lung cancer. However we still await pleural fluid cytology. 04/25/2017 cytology on pleural fluid has shown metastatic adenocarcinoma. Looking for primary site. 04/26/17 metastatic adenocarcinoma probably from an abdominal primary. 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 Current Visit: No
--- NOTE | 2017-04-26 08:50 | Gastrointestinal Progress Note ---
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 The CA 19-9 is extremely elevated, notably 2506 (normal equals 0-37), and the CEA level was less elevated at 8.6. To look for subtle pancreatic cancer and laryngeal carcinoma have ordered a MRCP for this patient. He is already had a upper endoscopy done by Dr. Luke Duque along with a partial colonoscopy sometime in the last year and a half over at [facility]. We are obtaining these old records. I suspect that because the colonoscopy was not complete but will have to repeat that on Monday. Clear liquid diet tomorrow with colonic prep in order to proceed with colonoscopy the next day. Unfortunately because of this patient's high creatinine he will require a GoLYTELY prep. Risks of the procedure including bleeding, infection, perforation, cardiac and pulmonary compromise were discussed with the patient prior to the procedure. Further recommendations post colonoscopy, MRCP and review of the records from [place]. 04/23/17--the patient's EGD and colonoscopy from [place] are still pending. He is getting ready to take his bowel prep in order to undergo colonoscopy tomorrow morning. The MRCP is not can be done until Monday or Monday by report from radiology, mainly because of the pacemaker compatibility issues. This information should be quite valuable to us. We could also consider sending the patient directly to a PET scan. 04/24/17--The colonoscopy was completed today and demonstrated the following: Multiple polyps, some of these large, removed from the ascending, descending and rectal regions of the colon, heavy left-sided diverticulosis, moderate size internal hemorrhoids. No source of cancer seen during the colonoscopy. Were the patient not 86 years old and would likely tell them to repeat colonoscopy in 3-5 years--for this patient repeat colonoscopy will depend on his health when the next comes due. 04/25/17--Results of the patient's previous upper endoscopy have come back from [facility] apparently this was performed on 02/08/[address] Duque this demonstrated some fungal esophagitis as well as some mild gastritis that proved to be Helicobacter pylori negative. No masses were seen suspicious for cancer. Note that the patient's colonoscopy yesterday did show multiple polyps but no cancer as well. We are mostly standing by waiting the MRCP which should be able to define a mass in the pancreas or biliary tree--path is pending but will likely not change coordinator. He will likely have to come back in 3-5 years for repeat colonoscopy. 04/26/17--EGD negative from 2016, colonoscopy negative this admission, awaiting MRCP results for evaluation of mass in the biliary tree versus pancreas. If this does not show a source we may have to get a PET scan as an outpatient in order to further define the potential source of the cancer. Patient apparently has multiple other areas that appear that might be cancer as well including thyroid and lung mass. The patient is asking for additional help with his peripheral edema, I think we can safely add some spironolactone to his Lasix to increase the diuretic effect. Current Visit: Yes (2) Constipation Status: Acute Assessment and plan: Patient does have low-grade constipation would benefit from use of MiraLAX twice daily. He can continue on his diet today but will need to switch over to clear liquids tomorrow in order to prep appropriately. 04/23/17--the patient is in good spirits and about to undergo his bowel prep. Colonoscopy should occur somewhere between 7:00 and 9:00 tomorrow could be his latest 1300. 04/24/17--Constipation is controlled for the present time. 04/25/17--constipation still controlled. Possible discharge tomorrow if the MRCP can be done and if no biopsy is required. 04/26/17--Controlled at present. Current Visit: Yes Gastroenterology - PN: Subj Interval history: The patient was being loaded to go to MRI at this time, he does have some additional swelling in his feet and would like an additional medication to help with this peripheral edema. Exam (Progress Note) - Constitutional Vitals: Period Temp Pulse Resp BP Sys/Hackett Pulse Ox Last 24 Hr 96.1 F-98.0 F 60-88 16-22 143-189/71-86 93-99 General appearance: no acute distress - Eye Eye exam: Present: EOMI - Cardiovascular Cardiovascular exam: Present: regular rate and rhythm - GI/Abdominal GI/Abdominal exam: Present: normal bowel sounds, distended, soft. Absent: tenderness, rebound - Extremities Exam Extremities exam: Present: edema (Trace to 1+ in the ankles bilaterally) - Neurological Exam Neurological exam: Present: alert, oriented X3 - Psychiatric Psychiatric exam: Present: normal affect, normal mood - Skin Skin exam: Present: warm Results - Labs CBC & BMP: 04/26/17 05:37 04/26/17 05:37
[2017-04-26] MEDS ORDERED: SODIUM POLYSTYRENE SULFATE 15 GM/60 ML BOTTLE PO ONE (08:53)
[2017-04-26] MEDS ORDERED: INSULIN REGULAR 100 UNIT/ML SUBCUT ONE (08:54)
[2017-04-26] MEDS ORDERED: DEXTROSE 50% 25 GM/50 ML SYRINGE IV ONE (08:54)
--- NOTE | 2017-04-26 09:25 | Pathology Report from [facility] ---
[facility] ACCESSION # : [id number] PATIENT NAME : Terrence Gardner ORDERING DR : Ashkan Warner MD CLINICAL HX: Multiple nodules in liver, elevated CEA level, elevated CA 19-9 POST-OP DX: Same SPECIMEN INFO: #1 Descending colon polyps x 2 #2 Ascending colon polyp x 1 #3 Rectal polyps GROSS DESCRIPTION: #1 Received in formalin labeled with the patients name TERRENCE GARDNER and #1 consists of two coleman polypoid tissue fragments together measuring 0.9 x 0.5 cm. Submitted in cassette #1.#2 Received in formalin labeled with the patients name TERRENCE GARDNER and #2 consists of two coleman tissue fragments together measuring 0.6 x 0.4 cm. Submitted in cassette #2.#3 Received in formalin labeled with the patients name TERRENCE GARDNER and #3 consists of four coleman tissue fragments in aggregate measuring 1.0 x 0.3 cm. Submitted in cassette #3. DIAGNOSIS FOR TERRENCE GARDNER: #1 DESCENDING COLON, MULTIPLE BIOPSIES: Tubulovillous adenomas.#2 ASCENDING COLON, BIOPSY: Tubular adenoma.#3 RECTUM, BIOPSY: Hyperplastic polyp. COLLECTED DATE: 04/25/2017 [facility] REPORT DATE: 04/26/2017 ELECTRONICALLY SIGNED BY: Tammi Johnson III, M.D. 04/26/2017 - 8:58:41 [facility] CENTERVickie
--- NOTE | 2017-04-26 10:53 | Magnetic Resonance Report ---
History: Pulmonary metastases with pathology suggesting pancreatic or upper GI origin. Elevated CA-19-9 Date: 04/26/2017 Study: MRI abdomen without IV contrast Comparison exam: Noncontrast CT abdomen and pelvis April 21, 2017 The abdomen was imaged in the axial and coronal planes on a 1.5 Belen magnet without IV contrast, to include T2, T2 fat sat, T1 in and out of phase sequences. 3-D maximum intensity projection images were also generated and archived for the purpose of MRCP. The study has some technical limitation related to patient motion on some sequences and related to artifact from aliasing on other sequences. No focal pancreatic abnormality is seen on this noncontrast study. The pancreatic duct is normal in caliber without obvious stricture. There is no abnormal dilatation or stricture associated with the common bile duct. The common bile duct measures 5.5 mm diameter and smoothly tapers distally. There is no intrahepatic biliary dilatation. The fluid-filled gallbladder is unremarkable. The spleen, liver, and adrenal glands are generally unremarkable when accounting for artifact. There are some tiny fluid signal intensity renal cysts bilaterally, compatible with simple renal cyst formation. There is no obvious focal mass of the stomach seen on this noncontrast study. There is a moderate or greater right-sided pleural effusion. There are numerous pulmonary nodules noted in the partially visualized left lower lung as noted on recent CT scan. Impression: Normal MRCP No obvious pancreatic mass seen on this noncontrast study Right pleural effusion and left basilar pulmonary nodules as noted on previous imaging studies PROCEDURE INTERPRETED AT [facility] DEPARTMENT OF RADIOLOGY Final Report Signed by: Dr. Jacki Spicer
[2017-04-26] MEDS: methylPREDNISolone SOD SUC 40 MG/1 ML VIAL IV SCH ×2 (11:03→20:40)
[2017-04-26] MEDS: FUROSEMIDE 40 MG TABLET PO SCH (11:03)
[2017-04-26] MEDS: AMIODARONE 200 MG TABLET PO SCH (11:03)
[2017-04-26] MEDS: amLODIPine 5 MG TABLET PO SCH ×2 (11:04→20:40)
[2017-04-26] MEDS: MULTIVITAMIN (CENTRUM) TABLET PO SCH (11:04)
[2017-04-26] MEDS: LORATADINE 10 MG TABLET PO SCH (11:04)
[2017-04-26] MEDS: POLYETHYLENE GLYCOL POWDER 17 GM PACK PO SCH ×2 (11:05→20:41)
[2017-04-26] MEDS: OMEGA 3 ACID ETHYL ESTERS 1 GM CAPSULE PO SCH (11:05)
[2017-04-26] MEDS: MULTIVITAMIN (OCUVITE) TABLET PO SCH ×2 (11:05→20:40)
[2017-04-26] MEDS: MONTELUKAST 10 MG TABLET PO SCH (11:05)
[2017-04-26] MEDS: BUDESONIDE/FORMOTEROL 160-4.5 INHALER 6 GM INH SCH ×2 (11:17→20:41)
--- NOTE | 2017-04-26 12:28 | Hospitalist Progress Note ---
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 Small right-sided pleural effusion is associated. 2. No specific etiology of pulmonary metastatic disease is demonstrated. Considerations in addition to GI etiology could include melanoma or thyroid. Thyroid USS showed 9 mm nodule within the right thyroid lobe demonstrates cystic and solid morphology with punctate echogenicities within suggestingpossible calcification. FNA is recommended to exclude malignant pathology. His family has told Oncology that he is not even sure that he will take any type of chemotherapy. Colonoscopy showed multiple polyps with no source of cancer seen. Thyroid biopsy to be done as outpt. Patient has gone for his MRCP today. plan . Oncology and Pulm are following Current Visit: Yes (2) COPD exacerbation Status: Acute Assessment and plan: continue current regime, Pulm is following. 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 Current Visit: Yes (4) Acute on chronic renal failure Status: Acute Assessment and plan: plan avoid Nephrotoxics BMP in am Current Visit: No Qualifiers: Chronic kidney disease stage: stage 3 (moderate) (5) Hyperkalemia Status: Acute Assessment and plan: will repeat Kayexalate, give D50 and Insulin, repeat levels Current Visit: Yes Hospitalist: Subjective Interval history: Patient has gone for his MRCP. Family requests for patient to get his Erythropoietin shot while on admission, he was scheduled to have it on Monday.They also want a portable oxygen tank.His potassium is still high. Exam - Constitutional Vitals: Period Temp Pulse Resp BP Sys/Hackett Pulse Ox Last 24 Hr 96.1 F-98 F 60-74 16-20 143-189/71-81 93-100 General appearance: no acute distress - Head Head exam: Present: normal inspection - Respiratory Respiratory exam: Present: clear to auscultation bilaterally - Cardiovascular Cardiovascular exam: Present: regular rate and rhythm - GI/Abdominal GI/Abdominal exam: Present: normal bowel sounds - Extremities Exam Extremities exam: Present: other (trace edema) - Neurological Exam Neurological exam: Present: alert, oriented X3 Results - Labs CBC & BMP: 04/26/17 05:37 04/26/17 05:37 Lab Results: I have reviewed the past 24 hour labs
[2017-04-26] MEDS ORDERED: DARBEPOETIN ALFA 100 MCG/ML VIAL SUBCUT ONE (13:06)
[2017-04-26] MEDS: DONEPEZIL 10 MG TABLET PO SCH (20:39)
[2017-04-26] MEDS: ASPIRIN EC 81 MG TABLET PO SCH (20:39)
[2017-04-26] MEDS: FAMOTIDINE 20 MG TABLET PO SCH (20:39)
[2017-04-26] MEDS: MELATONIN 3 MG TABLET PO SCH (20:39)
[2017-04-26] MEDS: GABAPENTIN 300 MG CAPSULE PO SCH (20:40)
[2017-04-27] MEDS: ALBUTEROL/IPRATROPIUM 3 ML NEB RESP TX SCH ×2 (01:52→07:32)
--- NOTE | 2017-04-27 07:28 | Pulmonology Progress Note ---
Pulmonary - PN: Subj Interval history: This 86-year-old white male was here about 6 weeks ago. He had a superior segment left lower lobe unresolved pneumonia appearance by CT. We did a bronchoscope with transbronchial biopsies that came back benign except for some class III cytology brushings. He had significant bleeding and washed him in the CCU overnight. He was discharged on Monday by Dr. Lipscomb in my absence. I saw him back in the clinic with SLADE Uribe. That was on 03/13/2017 and he was doing better. The x-ray at that time showed some pleural blunting on the right side and a left hilar infiltrate that was slightly better than when he was in the hospital. He went home and came back with increased cough shortness of breath and now has a large right pleural effusion. We need to do a thoracentesis on that today. 04/19/2017 chest x-ray postthoracentesis looks okay. Pleural fluid is clearly exudative. Await cytology and cultures. I think this is likely to be a malignancy. If cytology is negative then we could either have interventional radiology do a needle biopsy of the left lung lesion, or thoracic surgery do a VATS biopsy of right pleural. 04/20/2017 cytology not reported as yet. Cultures were negative. Plan to repeat chest x-ray tomorrow. If cytology is negative then we may want to get needle biopsy done, or VATS pleural biopsy. 04/21/2017 once again cytology is not reported yet. Await word from that before deciding where to go next. Patient is 86 years old and probably will not want chemotherapy. However he needs a diagnosis for prognostic purposes. 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 As recurrence of his right pleural effusion now almost as much as when he came in. He is not real symptomatic at this point. May need to have a pleural catheter placed and pleurodesis done. This would be for symptomatic care. Await final results on decision on chemotherapy. 04/26/17 the right pleural effusion is not causing a lot of symptoms right now. At some point he will need a pleural catheter and pleurodesis. Await word on the primary site and plans for treatment. 04/27/2017 he is really not symptomatic from the recurrent effusion at this point. If plans are to let him go home to get a PET scan and we can hold off on any pleural catheter and pleurodesis. If symptoms get worse as far as his breathing and that could be done later. I do think that the family is going to opt for comfort measures. Exam (Progress Note) - Constitutional Vitals: Period Temp Pulse Resp BP Sys/Hackett Pulse Ox Last 24 Hr 97.2 F-98.7 F 62-74 16-20 127-186/68-89 93-100 Exam: Patient's alert afebrile. Vital signs normal. Pupils react to light. Throat is clear. Neck supple no bruits. Chest reveals dullness on the right now. A few rhonchi and rales over the superior segment left lower lobe and increased breath sounds there. Heart normal rate rhythm no murmurs. Abdomen soft nontender no masses. Extremities no clubbing cyanosis. No edema. Calves nontender. Homans test negative. Results - Labs CBC & BMP: 04/26/17 05:37 04/26/17 05:37 Lab Results: I have reviewed the past 24 hour labs Assessment and Plan (1) Pleural effusion on right Status: Acute Assessment and plan: This has occurred in the last month. Differential would be between an infection malignant process or due to congestive heart failure/renal failure. Will obtain pleural fluid with a right thoracentesis this morning. 04/19/2017 await cytology and cultures. Very concerned about a multicentric pulmonary malignancy. 04/20/2017 cultures negative thus far. Cytology not reported. I am very suspicious of a malignancy. 04/21/2017 exudative right pleural effusion. Very suspicious for metastatic disease. Cytology has not been reported. Also has mass in superior segment left lower lobe. I biopsied this a few weeks ago and it bled significantly and did not give a diagnosis. If he needs further studies done he would need a needle biopsy of the left lung mass or VATS biopsy of the right pleura. 04/25/2017 the pleural effusion has returned. Will make decision on whether to do a pleural catheter and pleurodesis, depending on where the primary tumor is and whether the patient is going to get chemotherapy. He is not terribly symptomatic at present. If he is going to get chemotherapy would not do a pleurodesis right now. If the decision is made for symptomatic care then pleurodesis would be indicated. 04/26/17 on standby to get pleural catheter and pleurodesis done 04/27/17 metastatic adenocarcinoma. Really not having a lot of symptoms. Hold off on pleurodesis plans. This can be done if he gets symptomatically short of breath. Current Visit: Yes (2) COPD (chronic obstructive pulmonary disease) Status: Acute Assessment and plan: Bronchodilators and antibiotic steroids. 04/19/2017 continue current medications. We can reduce the steroids a bit. 04/20/2017 continuing bronchodilators steroids and antibiotics empirically. 04/21/2017 patient is feeling better. Taper steroids. 04/25/2017 no bronchospasm. 04/26/17 no wheezing continue current treatment Current Visit: Yes (3) Acute on chronic renal failure Status: Acute Assessment and plan: May need to have nephrology see him. Creatinine is 3.4. Depending on what the pleural fluid looks like he may need diuresing. 04/19/2017 follow creatinine. 04/20/2017 creatinine slightly higher. 04/25/2017 creatinine down to 2.4. 04/26/17 creatinine stable around 2.7. Current Visit: No Qualifiers: Chronic kidney disease stage: stage 3 (moderate) (4) Bilateral lower lobe lung mass Status: Acute Assessment and plan: Has multiple nodules bilaterally with the largest one in the superior segment left lower lobe. I would be concerned about a bronchoalveolar cell carcinoma. If we do not get an answer from the thoracentesis we may need to have interventional radiology to do a needle biopsy of the left lung lesion. He bled so easily from transbronchial biopsy last month that I do not want to do another one. 04/20/2017 await cytology from pleural fluid before making decision on next step. Patient is not a good candidate for chemotherapy, because I would not be very aggressive on getting a diagnosis but he probably could tolerate a needle biopsy. 04/21/2017 suspicious for metastatic malignancy. May be a multifocal lung cancer. However we still await pleural fluid cytology. 04/25/2017 cytology on pleural fluid has shown metastatic adenocarcinoma. Looking for primary site. 04/26/17 metastatic adenocarcinoma probably from an abdominal primary. 04/27/2017 markers on the pleural fluid indicate that the metastatic effusion comes from an abdominal source. Could possibly be lung cancer with metastasis and just unusual markers. Only matters if he takes chemotherapy. 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 Current Visit: No
--- NOTE | 2017-04-27 08:20 | Oncology Progress Note ---
Oncology Subjective PN Interval history: I have given Mr. Gardner information from [facility] on pancreatic cancer as well as Gemzar and Abraxane. If I started a single agent, it would be the Gemzar and it would be given once every 2 weeks. If there is any response, I would consider adding Abraxane. Dr. Aparicio mentioned a PET scan and I do not disagree with getting this. The patient is having very few symptoms. It might be appropriate to obtain a PET scan and then consider, or reconsider chemotherapy at that time. I will mention this to the patient's son. The patient appears to be more willing to try chemotherapy then his son does. His son has experienced some bad outcomes recently of malignancies that were treated with chemotherapy. Exam - Constitutional Vitals: Period Temp Pulse Resp BP Sys/Hackett Pulse Ox Last 24 Hr 97.4 F-98.7 F 62-89 16-20 127-186/68-89 90-100 Results - Labs CBC & BMP: 04/26/17 05:37 04/26/17 05:37
[2017-04-27] MEDS: MULTIVITAMIN (CENTRUM) TABLET PO SCH (09:06)
[2017-04-27] MEDS: FUROSEMIDE 40 MG TABLET PO SCH (09:06)
[2017-04-27] MEDS: methylPREDNISolone SOD SUC 40 MG/1 ML VIAL IV SCH (09:06)
[2017-04-27] MEDS: amLODIPine 5 MG TABLET PO SCH (09:06)
[2017-04-27] MEDS: MULTIVITAMIN (OCUVITE) TABLET PO SCH (09:06)
[2017-04-27] MEDS: MONTELUKAST 10 MG TABLET PO SCH (09:06)
[2017-04-27] MEDS: LORATADINE 10 MG TABLET PO SCH (09:06)
[2017-04-27] MEDS: AMIODARONE 200 MG TABLET PO SCH (09:06)
[2017-04-27] MEDS: POLYETHYLENE GLYCOL POWDER 17 GM PACK PO SCH (09:07)
[2017-04-27] MEDS: BUDESONIDE/FORMOTEROL 160-4.5 INHALER 6 GM INH SCH (09:07)
[2017-04-27] MEDS: OMEGA 3 ACID ETHYL ESTERS 1 GM CAPSULE PO SCH (09:07)
--- NOTE | 2017-04-27 09:17 | Discharge Summary ---
<Redd Arriaga - Last Filed: 04/27/17 08:49> Hospital Course - Hospital Course Hospital Course: Mr. Gardner is an 86-year-old male who presented to the [facility] ED on 2016 for evaluation of shortness of breath. On admission, the patient was dyspneic and found to have recurrent right pleural effusion on chest x-ray. Upon pulmonary consultation, the patient was found to have some bilateral lower lobe opacities/mass suspicious for pneumonia and cancer. He was empirically covered with antibiotics and oncology was consulted. The patient did undergo a right thoracentesis on 04/18/[address] Aparicio at which time a total of 1600 mL of slightly cloudy slightly hemorrhagic pleural fluid was removed. Cultures of the pleural fluid grew no bacteria. No acid-fast bacilli seen. Fluid was exudative and cytology report concluded the specimen was clasped 5, metastatic adenocarcinoma. CT of the abdomen and pelvis confirmed numerous pulmonary nodules demonstrated bilaterally with additional confluence/consolidation and/ or soft tissue mass of the left upper lobe most suggestive of metastatic disease. Tumor markers including alpha-fetoprotein level of 2.4, CEA level of 8.2 and CA-19-9 level of 2506.5 suggests a foregut malignancy. GI was consulted and suggested proceeding with a MRCP to look for subtle pancreatic cancer and laryngeal carcinoma with follow-up colonoscopy. Colonoscopy performed on 04/24/2017 revealed no source for colon cancer. Pathology report of the biopsies done during colonoscopy revealed tubulovillous adenomas and descending colon, tubular adenoma and a sending colon and hyperplastic polyp in the rectum. No primary site for this patient's cancer has been found to date. He does have recurrent pleural effusion but is asymptomatic and does not require pleurodesis or catheter placement at this time. MRCP was normal. His hyperkalemia was corrected, his renal status remained stable. Clinically, the patient is stable for discharge home with outpatient follow-up as needed. PET scan has been scheduled for next week Monday the 01 of May.He may also have a thoracocentensis on the same day if he comes symptomatic. Patient refuses home health and PT, he states his daughter-in- law will look after him.Family also requests for portable oxygen which we are working on.He uses 2L at night.We will give a dose of coreg and rechecked blood pressure prior to dc. - Time spent with patient Time with patient DS: Greater than 30 minutes Discharge Plan - Discharge Data Disposition: Disch To Home/Self Care - Discharge Medications New Polyethylene Glycol Powder [Miralax] 17 gm PO BID #7 predniSONE [Prednisone] See Taper PO DIRECTED #30 tab.ds.pk Carvedilol [Coreg] 3.125 mg PO BID #60 tablet Continue [place]-3 Fatty Acids [Fish Oil Concentrate] 500 mg PO BID Gabapentin 300 mg PO BEDTIME Famotidine 40 mg PO BEDTIME Donepezil [Aricept] 10 mg PO BEDTIME Amiodarone Tab [Cordarone Tab] 200 mg PO DAILY amLODIPine [Norvasc] 5 mg PO BID Polyvinyl Alcohol 1.4% Oph Alva [Artificial Tears Oph Soln] 1 drop BOTH EYES QID PRN PRN Reason: Dry Eyes Montelukast Sodium 10 mg PO DAILY Polycarbophil [Fibercon] 625 mg PO DAILY PRN PRN Reason: Constipation Lutein 40 mg PO BEDTIME Ipratropium/Albuterol Sulfate [Iprat-Albut 0.5-3(2.5) mg/3 ml] 3 ml IH TID Aspirin [Ecotrin] 81 mg PO BEDTIME Mv-Min/FA/Vit K/Lycop/Lut/Zeax [Ocuvite Eye + Multi Tablet] 1 each PO BID Multivitamin with Iron [Multivitamins with Iron] 1 each PO DAILY Budesonide/Formoterol 160-4.5 [Symbicort 160-4.5] 2 puff INH BID Melatonin/Pyridoxine HCl (B6) [Melatonin 3 mg Tablet] 6 mg PO BEDTIME Furosemide Tab [Lasix Tab] 40 mg PO DAILY Loratadine Tab [Claritin Tab] 10 mg PO DAILY Discontinued Ciprofloxacin Tab [Cipro Tab] 250 mg PO BID - Follow Up or Referral - Forms/Instructions Exam - Constitutional Vitals: Period Temp Pulse Resp BP Sys/Hackett Pulse Ox Last 24 Hr 97.4 F-98.7 F 62-89 16-20 127-183/68-89 90-100 Discharge Results Procedures and tests throughout hospitalization: Pending Orders 04/18/17 AFB Culture/Smears Routine 04/18/17 11:25 Cytology Request Routine 04/28/17 04:00 XR chest 1V portable IN AM Labs on day of discharge: Labs from last 24 hours 04/27/17 09:23 Potassium 4.6 DS: Provider Date of admission: 04/17/17 12:10 Primary care physician: Sari Ferguson Attending physician on admission: Mert Velásquez MD Consults: 04/17/17 12:12 Consult to Physician [CONS] Routine Comment: Consulting Provider: Oscar Aparicio When should Consulting Provider be notified: Now Consult to Specialist Group: Pulmonology Person Notified: claribel Date Notified: 04/17/17 Time Notified: 13:11 04/21/17 09:19 Consult to Physician [CONS] Routine Comment: metastatic adenocarcinoma pleural fluid Consulting Provider: Memo Hatfield Person Notified: manny Date Notified: 04/21/17 Time Notified: 10:01 04/22/17 08:48 Consult to Physician [CONS] Routine Comment: adenocarcinoma possibly coming from the GI tract Consulting Provider: Ashkan Warner Person Notified: Dr. Warner Date Notified: 04/22/17 Time Notified: 08:50 04/26/17 10:11 Consult to Case Mgmt/Social Srvs [CONS] Routine Reason for Case Mgmt/Social Srvs: Other Consult Comment: home portable O2 tank (already has nightime O2) Discharging clinician: Redd [facility] Expected date of discharge: 04/27/17 <Concepción Mejias - Last Filed: 04/27/17 12:53> Hospital Course - Time spent with patient Time with patient DS: Greater than 30 minutes (Time spent greater than 35mins) Diagnosis - Discharge Diagnosis (1) Mass of lower lobe of left lung Status: Acute (2) COPD exacerbation Status: Acute (3) Pleural effusion on right Status: Acute (4) Acute on chronic renal failure Status: Acute (5) Hyperkalemia Status: Acute Discharge Plan - Discharge Data Condition at Discharge: Stable Discharge Diet: advance to your usual diet Activity: resume usual activities as tolerated - Forms/Instructions Additional Discharge Instructions: Follow with PCP in 1week. PET SCAN scheduled for Monday the 01 of May. Follow with Pulm as scheduled Exam - Constitutional General appearance: no acute distress - Eye Eye exam: Present: EOMI - Respiratory Respiratory exam: Present: clear to auscultation bilaterally - Cardiovascular Cardiovascular exam: Present: regular rate and rhythm - GI/Abdominal GI/Abdominal exam: Present: normal bowel sounds - Extremities Exam Extremities exam: Present: normal inspection - Neurological Exam Neurological exam: Present: alert, oriented X3
[2017-04-27] MEDS ORDERED: CARVEDILOL 3.125 MG TABLET PO SCH (13:00)
[2017-04-27 14:51] VITALS: BP 150/66
--- NOTE | 2017-05-03 10:53 | Physician Query Form ---
CLICK EDIT DOCUMENT TO SELECT QUERY ANSWER --> OK --> SIGN Audrey Clemente RN Clinical Tamper Operator W) [phone] (f) [phone] [email or web address] PROVIDERS: Make your selection(s) from the choices in EACH section by typing an "x" and enter comments in the comment section. Please use your independent medical judgment in providing your response. This request does not imply that any particular answer is desired or expected. CLINICAL INDICATORS: (Providers should not edit this section) Pt. admitted with recurrent right pleural effusion. 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 Based on the above, could you clarify the appropriate diagnosis, if significant , that supports the above abnormalities and additional evaluation, monitoring, and/or treatment rendered: ( x) Pt. has malignant pleural effusion ( ) Pt. has non-malignant pleural effusion ( ) Other, please specify: ( ) Clinically unable to determine COMMENTS: PLEASE ALSO DOCUMENT RESPONSE IN PROGRESS NOTES AND/OR DISCHARGE SUMMARY Use of terms such as suspected, likely, or probable (associated with a specific diagnosis that is being evaluated, monitored, or treated as if it exists) are acceptable and can be restated in the discharge summary if not ruled out. MTDD
--- NOTE | 2017-05-03 11:03 | Physician Query Form ---
CLICK EDIT DOCUMENT TO SELECT QUERY ANSWER --> OK --> SIGN Audrey Clemente RN Clinical Dealer Sales Manager W) [phone] (f) [phone] [email or web address] PROVIDERS: Make your selection(s) from the choices in EACH section by typing an "x" and enter comments in the comment section. Please use your independent medical judgment in providing your response. This request does not imply that any particular answer is desired or expected. CLINICAL INDICATORS: (Providers should not edit this section) The below diagnosis was documented in the record, but is not consistently noted in subsequent documentation. Diagnosis: Pneumonia Based on documentation of "acute pneumonia. Patient may have some left lower lobe pneumonia but this may be a cancer also. He will be covered with antibiotics". Pt. treated with IV Levaquin. Please clarify the following: (x ) The above diagnosis was monitored, evaluated, and/or treated and is a confirmed diagnosis ( ) The above diagnosis was ruled out ( ) Other, please specify: ( ) Clinically unable to determine COMMENTS: PLEASE ALSO DOCUMENT RESPONSE IN PROGRESS NOTES AND/OR DISCHARGE SUMMARY Use of terms such as suspected, likely, or probable (associated with a specific diagnosis that is being evaluated, monitored, or treated as if it exists) are acceptable and can be restated in the discharge summary if not ruled out. MTDD
--- NOTE | 2017-05-08 17:15 | Pathology Report from [facility] ---
[facility] – [place] ACCESSION # : [id number] PATIENT NAME : Kelechi Gardner ORDERING DR : FOSTER MARTELL MD CLINICAL HX: Pleural effusion POST-OP DX: Same SPECIMEN INFO: Fluid- Pleural - 1600 mls cloudy red [place] CLASS: V CLASS COMMENTS: Metastatic adenocarcinoma; consider pancreatic, upper G-I tract primary.CELL BLOCK: Same; TTF1- calretinin+/- CA19-9+ CK7+/- CK20- CDX2- CLASS LEGEND: CLASS 0 Material inadequate for diagnosis because of (see comment) CLASS I Absence of atypical or abnormal cells CLASS II Atypical Cytology but no evidence of malignancy CLASS III Cytology suggestive of but not conclusive for malignancy CLASS IV Cytology strongly suggestive of malignancy CLASS V Cytology conclusive for malignancy COLLECTED DATE: 04/18/2017 [facility] REPORT DATE: 04/20/2017 SUPPLEMENTAL TEXT: PD-L1 IHC 22C3; performed by [employer] [facility], [place], [place]:RESULTS: PD-L1 Expression is <1%.INTERPRETATION: No expression, <1%.Both the technical component of this assay and its interpretation criteria were validated for non- small cell lung carcinoma; the performance characteristics and clinical significance have not been determined for other primary tumor types. SUPPLEMENTAL DATE: 05/08/2017 ELECTRONICALLY SIGNED BY: Marisol Garcia M.D. 04/20/2017 - 13:26:08 KATHYA
== END 2017-04-27 15:00 | disposition home health service (06) | DRG 180 ==
LOC: N.ED 09:08 → N.EDINP 12:10 → SUATTDRO 12:10 → N.2E 12:39
PROVIDERS: ADMIT Internal Medicine Infectious Disease; ATTEND Internal Medicine

== ENCOUNTER 2017-05-01 14:14 | Inpatient (IN) ==
[2017-05-01] MEDS ORDERED: VANCOMYCIN INJ 1,000 MG in SODIUM CHLORIDE 0.9% 250 ML IV STA (15:14)
[2017-05-01] MEDS ORDERED: ALBUTEROL/IPRATROPIUM 3 ML NEB RESP TX STA ×2 (15:14→18:14)
--- NOTE | 2017-05-01 15:21 | Emergency Department Note ---
Arrival - Arrival Chief Complaint: Non-Specific Stated Complaint: fluid.. sent by dr. GUARDADO Nursing Triage Note: c/o being here last evening and had thoracentisis done with 1800 cc of fluid being pulled off, states had a PET scan done today and was told to come back today., states was told today that had MRSA Mode of Arrival: Wheelchair Limitations: No Limitations Source: Significant other Time Seen by Provider: 05/01/17 15:14 - History of Present Illness HPI Narrative: This 87-year-old white male with metastatic cancer presents 24 hours after drainage of recurrent right malignant effusion at which time blood cultures were taken and returned today positive for MRSA, and the patient was called back per Dr. Aparicio office. The patient denies chills, fever, significant shortness of breath, but does complain of right pleuritic chest pain. His reports that it is the consensus that this is most likely of pancreatic origin from an occult pancreatic tumor. Onset (ago): day(s) (Patient presents 1 day post incident) Allergies/Adverse Reactions: Allergies Allergy/AdvReac Type Severity Reaction Status Date / Time No Known Allergies Allergy Verified 05/01/17 14:36 Home Medications: Home Medications Medication Instructions Recorded Confirmed Type Amiodarone Tab [Cordarone Tab] 200 mg PO DAILY 12/22/15 05/01/17 History Donepezil [Aricept] 10 mg PO BEDTIME 12/22/15 05/01/17 History Famotidine 40 mg PO BEDTIME 12/22/15 05/01/17 History Gabapentin 300 mg PO BEDTIME 12/22/15 05/01/17 History Polyvinyl Alcohol 1.4% Oph Alva 1 drop BOTH EYES QID PRN 02/04/16 05/01/17 History [Artificial Tears Oph Soln] Budesonide/Formoterol 160-4.5 2 puff INH BID 10/05/16 05/01/17 History [Symbicort 160-4.5] Montelukast Sodium 10 mg PO DAILY 10/05/16 05/01/17 History Furosemide Tab [Lasix Tab] 40 mg PO DAILY 02/23/17 05/01/17 History Lutein 40 mg PO QAM 02/23/17 05/01/17 History Melatonin/Pyridoxine HCl (B6) 2 mg PO BEDTIME 02/23/17 05/01/17 History [Melatonin 3 mg Tablet] Polycarbophil [Fibercon] 625 mg PO DAILY PRN 02/23/17 05/01/17 History Aspirin [Ecotrin] 81 mg PO BEDTIME 04/17/17 05/01/17 History Ipratropium/Albuterol Sulfate 3 ml IH TID 04/17/17 05/01/17 History [Iprat-Albut 0.5-3(2.5) mg/3 ml] Loratadine Tab [Claritin Tab] 10 mg PO DAILY 04/17/17 05/01/17 History Mv-Min/FA/Vit K/Lycop/Lut/Zeax 1 each PO BID 04/17/17 05/01/17 History [Ocuvite Eye + Multi Tablet] Carvedilol [Coreg] 3.125 mg PO BID #60 tablet 04/27/17 05/01/17 Rx Polyethylene Glycol Powder 17 gm PO BID #7 04/27/17 05/01/17 Rx [Miralax] predniSONE [Prednisone] See Taper PO DIRECTED #30 04/27/17 05/01/17 Rx tab.ds.pk Acetaminophen Tab [Tylenol Tab] 325 mg PO Q4H PRN 04/30/17 05/01/17 History Hydrocortisone/Pramoxine 30 gm RECTAL QOTHER DAY PRN 04/30/17 05/01/17 History [Hydrocort-Pramoxine 1%-1% Cream] Menthol [Icy Hot Gel] 1 applic TOP TID PRN 04/30/17 05/01/17 History Multivitamin with Iron 1 each PO DAILY 04/30/17 05/01/17 History [Multivitamins with Iron] [place]-3 Fatty Acids/Fish Oil [Fish 1 each PO DAILY 04/30/17 05/01/17 History Oil 1,000 mg Softgel] amLODIPine [Norvasc] 5 mg PO DAILY 04/30/17 05/01/17 History Review of System - Review of System 12 point system: reviewed and no additional remarkable complaints except as stated - Review of System Constitutional: Present: as per HPI Respiratory: Present: as per HPI Cardiovascular: Present: as per HPI Medical,Surgical,& Family Hx - Medical History Cardio: History of: Cardiac Dysrhythmia (SLOW HEART BEAT.), Hypertension ([place]. MEDICALLY), Pacemaker, Cardiovascular Problems (AFIB HAD CARDIOVERSION IN 2013.DR MAURER) Psychological: History of: Anxiety Disorders ([place]. MEDICALLY), Depression No history of: ADHD, Behavior Problems, Bipolar Disorder, Previous Suicide Attempt, Psychiatric/Substance Abuse Tx, Schizophrenia, Violent Behavior, Psychiatric Problems Neurology: No history of: Seizures HEENT: History of: Ear Problem (hard of hearing), Eye Problem (CATARACTS REMOVED FROM BOTH EYES W/ LENS IMPLANTS.), HEENT Problems (MACULAR DEGENERATION) Rheumatology: History of;: Rheumatological Problems (Arthritis) Respiratory: History of: COPD ([place]. INHALER AND NEBS.), Pneumonia, Respiratory Problems (Bronch with lung Bx) Renal: History of: Renal Failure (HX), Renal Problems (CKD) Genitourinary: History of: Problems (urinary stricture) Gastrointestinal: History of: GERD, GI Problems (VA SAID HE HAD DIARRHEA AND IS ON LOMOTIL.) Musculoskeletal: History of: Back/Neck Problems, Degenerative Disk Disease No history of: Amputation Hematology: History of: Anemia - Surgical History Thoracic Surgeries: Patient denies;: Organ Transplant, Lobectomy Neurologic Surgeries: Patient denies: Neurologic Surgery HEENT Surgeries: Surgical HX of: Eye Surgery (CATARACT SURGERIES X 2.), Tonsilectomy & Adenoidectomy (60 YEARS AGO.) Patient denies: Thyroid Surgery Abdominal Surgeries: Surgical HX of: Appendectomy (JUN 2014. RUPTURE. SURGERY.) , Colonoscopy (NEGATIVE. SEVERAL YEARS AGO.), EGD Reproductive Surgeries: Patient denies;: Genitourinary Surgery Orthopedic Surgeries: Patient denies;: Implanted Devices, Orthopedic Surgery, Spinal Surgery, Total Hip Replacement, Total Knee Replacement - Family History Family History: Reports;: Family Cancer (DAUGHTER HAS COLON CANCER, OVARIAN CANCER, LUNG CANCER BROTHERS.) Denies;: Family Anesthesia Reaction, Family Diabetes, Family Heart Disease, Family Hypertension, Family Psychiatric Problems, Family Stroke - Social History Smoking Status: Former smoker Frequency of Alcohol Use: None Type of Drug Use: None Exam Physical Examination: GENERAL: Thin frail white male in no acute distress. HEENT: Normocephalic. No trauma. Moist mucous membranes. EOMI. PERRLA. ENT NML NECK: Supple. No adenopathy. CARDIAC: Regular. No murmurs. Heart rate 65 CHEST: Scattered rhonchi bilaterally. No respiratory distress. O2 sat 93% ABDOMEN: Soft. Nontender. Active bowel sounds. EXTREMITIES: No trauma. Normal ROM. No pedal edema. SKIN: No diaphoresis. No rash. NEURO: Alert. Neuro intact no focal deficits. Vital Signs: Vital Signs Temperature 98.5 F 05/01/17 15:02 Pulse Rate 65 05/01/17 15:02 Respiratory Rate 05/01/17 15:05 Blood Pressure 143/57 05/01/17 15:02 O2 Sat by Pulse Oximetry 93 L 05/01/17 14:32 Course - Reevaluation(s) Reevaluation #1: Discussed with patient the obvious need for hospitalization. - Consultations Consultation #1: Discussed with the hospitalist service who will admit for further evaluation treatment Disposition Clinical Impression: MRSA sepsis, Right malignant effusion, Pancreatic carcinoma Case discussed with: patient, patient's family Disposition: Still a Patient Condition: Guarded Time of Disposition: 15:47
--- NOTE | 2017-05-01 15:39 | XRay Report ---
Portable chest Date: 05/01/2017 Clinical history: Shortness of breath Comparison: 04/30/2017 Technique: Portable AP sitting chest Findings: The heart is minimally enlarged with left subclavian atrioventricular permanent pacemaker. Progressive parenchymal findings in the lungs especially at the right lung base and in the left perihilar location. Irregular masslike densities persist with moderate right pleural effusion Impression: Findings which can be seen with progressive pneumonia with possible underlying chest masses. Follow-up recommended. Moderate right pleural effusion. Cardiomegaly with permanent pacemaker. PROCEDURE INTERPRETED AT [facility] Final Report Signed by: Dr. Candace Chilel
[2017-05-01 16:22] LABS: Hematocrit 39.2 VOL% (42.0-52.0); Hemoglobin 12.8 GM/DL (14.0-18.0); Immature Granulocytes % 2.8 %; Immature Granulocytes Absolute 1.48 #; Lymphocytes # 1.3 10*3/uL (1.4-4.0); Lymphocytes % 2.4 % (21.2-54.2); Mean Corpuscular HGB Conc 32.7 GM/DL (32-36); Mean Corpuscular Hemoglobin 29 PG (27-34); Mean Corpuscular Volume 89.5 FL (87-102); Mean Platelet Volume 10.1 FL (9.6-12.0); Monocytes # 2.7 10*3/uL (0.11-0.8); Monocytes % 5.2 % (1.7-12.7); Neutrophils # 46.9 10*3/uL (1.4-7.4); Neutrophils % 89.6 % (38.7-73.9); Platelet Count 206 T/CUMM (130-400); Red Blood Count 4.38 MC/CUMM (3.8-5.5); Red Cell Distribution Width 14.2 % (9.3-17.3)
[2017-05-01 16:23] LABS: White Blood Count 52.4 T/CUMM (4-12)
[2017-05-01 16:33] LABS: INR 1.1; Partial Thromboplastin Time 29.1 SECS (0-40)
[2017-05-01] MEDS ORDERED: VANCOMYCIN 1,000 MG VIAL ONE (16:42)
[2017-05-01 16:45] LABS: Albumin 2.3 G/DL (3.4-5.0); Bilirubin,Total 0.6 MG/DL (0.2-1.0); Calcium 8.8 MG/DL (8.5-10.1); Osmolality,Calculated 299.5 MOS/KG (273-304); Potassium 5.2 MMOL/L (3.5-5.1); Total Protein 6.1 G/DL (6.4-8.3)
[2017-05-01] MEDS ORDERED: ACETAMINOPHEN 500 MG TABLET PO STA (16:48)
[2017-05-01] MEDS ORDERED: ACETAMINOPHEN 500 MG TABLET ONE (16:48)
--- NOTE | 2017-05-01 16:48 | Hospitalist History & Physical ---
<Amanda Mayen - Last Filed: 05/01/17 17:10> Assessment and Plan - Time spent with patient Time spent with patient: Greater than 30 minutes (1) Bacteremia Status: Acute Assessment and plan: MRSA positive blood cultures. Will admit to Hospital Services. Will start antibiotics. Will start Respiratory treatments. Will discuss with Dr Mejias for further recommendations. Current Visit: Yes (2) Malignant pleural effusion Status: Acute Assessment and plan: Will consult Pulmonary for the A.[facility]. (Dr Aparicio) for assistance for recurrent pleural effusion related to malignancy. Will review the results of PET scan once they are available. Current Visit: No History of Present Illness Chief complaint: MRSA History of present illness: Mr. Gardner is a very pleasant 87 year old white male presented to [facility] ED for a newly resulted positive blood culture for MRSA that was obtained 04/30/17 in the ED for which at that time he came to the ED for shortness of breath. He is 24 hours s/p thoracentisis with drainage of recurrent right malignant effusion (about 1800cc). PMHx: HTN, GERD, arthritis, Pacemaker, Anxiety disorder, depression, hard of hearing, Macular degeneration, COPD, Chronic kidney disease (not on dialysis), malignancy of unkown origin. He reports feeling very weak over the weekend. He normally ambulates without assistance or occasional use of cane but in the past 48 hours has not been able to ambulate related to feeling too weak. He denies nausea or vomiting. He denies chest pain. He reports increased swelling in his legs. The daughter-in- law in the room reports he sits with his legs hanging down often and the swelling has been more severe. She reports a spot on his left lung was discovered on a CT. The patient had a thoracentensis and studies of fluid showed malignant cells. Then Dr Aparicio did a scope with biopsies but nothing has shown the source of malignancy. GI was consulted and Dr Warner did not find any abnormalities on lower scope. MRI was done to study the pancreas but she said "my understanding is nothing was found on the MRI". He had a PET scan done earlier today and waiting for report. PCP: Dr Kennedy Casanova in [place]. Pulmonary: Dr Aparicio. Dr Hatfield was consulted last admission ; GI: Dr. Warner. Nephrology: Dr Guy. Account Liaison Hospice: Dr Maurer After discussion with Dr Gill in the Ed and Dr Mejias with Hospitalist, its was in agreement to admit patient for further evaluation. Will review home medications and reconciliation to follow. Home Medications Medication Instructions Recorded Confirmed Type Amiodarone Tab [Cordarone Tab] 200 mg PO DAILY 12/22/15 05/01/17 History Donepezil [Aricept] 10 mg PO BEDTIME 12/22/15 05/01/17 History Famotidine 40 mg PO BEDTIME 12/22/15 05/01/17 History Gabapentin 300 mg PO BEDTIME 12/22/15 05/01/17 History Polyvinyl Alcohol 1.4% Oph Alva 1 drop BOTH EYES QID PRN 02/04/16 05/01/17 History [Artificial Tears Oph Soln] Budesonide/Formoterol 160-4.5 2 puff INH BID 10/05/16 05/01/17 History [Symbicort 160-4.5] Montelukast Sodium 10 mg PO DAILY 10/05/16 05/01/17 History Furosemide Tab [Lasix Tab] 40 mg PO DAILY 02/23/17 05/01/17 History Lutein 40 mg PO QAM 02/23/17 05/01/17 History Melatonin/Pyridoxine HCl (B6) 2 mg PO BEDTIME 02/23/17 05/01/17 History [Melatonin 3 mg Tablet] Polycarbophil [Fibercon] 625 mg PO DAILY PRN 02/23/17 05/01/17 History Aspirin [Ecotrin] 81 mg PO BEDTIME 04/17/17 05/01/17 History Ipratropium/Albuterol Sulfate 3 ml IH TID 04/17/17 05/01/17 History [Iprat-Albut 0.5-3(2.5) mg/3 ml] Loratadine Tab [Claritin Tab] 10 mg PO DAILY 04/17/17 05/01/17 History Mv-Min/FA/Vit K/Lycop/Lut/Zeax 1 each PO BID 04/17/17 05/01/17 History [Ocuvite Eye + Multi Tablet] Carvedilol [Coreg] 3.125 mg PO BID #60 tablet 04/27/17 05/01/17 Rx Polyethylene Glycol Powder 17 gm PO BID #7 04/27/17 05/01/17 Rx [Miralax] predniSONE [Prednisone] See Taper PO DIRECTED #30 04/27/17 05/01/17 Rx tab.ds.pk Acetaminophen Tab [Tylenol Tab] 325 mg PO Q4H PRN 04/30/17 05/01/17 History Hydrocortisone/Pramoxine 30 gm RECTAL QOTHER DAY PRN 04/30/17 05/01/17 History [Hydrocort-Pramoxine 1%-1% Cream] Menthol [Icy Hot Gel] 1 applic TOP TID PRN 04/30/17 05/01/17 History Multivitamin with Iron 1 each PO DAILY 04/30/17 05/01/17 History [Multivitamins with Iron] [place]-3 Fatty Acids/Fish Oil [Fish 1 each PO DAILY 04/30/17 05/01/17 History Oil 1,000 mg Softgel] amLODIPine [Norvasc] 5 mg PO DAILY 04/30/17 05/01/17 History Allergies Allergy/AdvReac Type Severity Reaction Status Date / Time No Known Allergies Allergy Verified 05/01/17 14:36 Medical,Surgical,& Family Hx - Medical History Cardio: History of: Cardiac Dysrhythmia (SLOW HEART BEAT.), Hypertension ([place]. MEDICALLY), Pacemaker, Cardiovascular Problems (AFIB HAD CARDIOVERSION IN 2013.DR MAURER) Psychological: History of: Anxiety Disorders ([place]. MEDICALLY), Depression No history of: ADHD, Behavior Problems, Bipolar Disorder, Previous Suicide Attempt, Psychiatric/Substance Abuse Tx, Schizophrenia, Violent Behavior, Psychiatric Problems Neurology: No history of: Seizures HEENT: History of: Ear Problem (hard of hearing), Eye Problem (CATARACTS REMOVED FROM BOTH EYES W/ LENS IMPLANTS.), HEENT Problems (MACULAR DEGENERATION) Rheumatology: History of;: Rheumatological Problems (Arthritis) Respiratory: History of: COPD ([place]. INHALER AND NEBS.), Pneumonia, Respiratory Problems (Bronch with lung Bx) Renal: History of: Renal Failure (HX), Renal Problems (CKD) Genitourinary: History of: Problems (urinary stricture) Gastrointestinal: History of: GERD, GI Problems (VA SAID HE HAD DIARRHEA AND IS ON LOMOTIL.) Musculoskeletal: History of: Back/Neck Problems, Degenerative Disk Disease No history of: Amputation Hematology: History of: Anemia - Surgical History Thoracic Surgeries: Patient denies;: Organ Transplant, Lobectomy Neurologic Surgeries: Patient denies: Neurologic Surgery HEENT Surgeries: Surgical HX of: Eye Surgery (CATARACT SURGERIES X 2.), Tonsilectomy & Adenoidectomy (60 YEARS AGO.) Patient denies: Thyroid Surgery Abdominal Surgeries: Surgical HX of: Appendectomy (JUN 2014. RUPTURE. SURGERY.) , Colonoscopy (NEGATIVE. SEVERAL YEARS AGO.), EGD Reproductive Surgeries: Patient denies;: Genitourinary Surgery Orthopedic Surgeries: Patient denies;: Implanted Devices, Orthopedic Surgery, Spinal Surgery, Total Hip Replacement, Total Knee Replacement - Family History Family History: Reports;: Family Cancer (DAUGHTER HAS COLON CANCER, OVARIAN CANCER, LUNG CANCER BROTHERS.) Denies;: Family Anesthesia Reaction, Family Diabetes, Family Heart Disease, Family Hypertension, Family Psychiatric Problems, Family Stroke - Social History Smoking Status: Former smoker Frequency of Alcohol Use: None Type of Drug Use: None Lives With:: Alone Functional capacity: independent ambulation Review of systems: ROS completed and pertinent positives and negatives in HPI. Exam - Constitutional Vitals: Period Temp Pulse Resp BP Sys/Hackett Pulse Ox Last 24 Hr 98.5 F-98.5 F 65-69 17-18 143-143/57-57 93-100 General appearance: normal weight - Head Head exam: Present: normal inspection - Eye Eye exam: Present: EOMI Pupils: Present: SOLOMON - ENT ENT exam: Present: other (MACULAR DEGENERATION) - Neck Neck exam: Present: normal inspection - Respiratory Respiratory exam: Present: clear to auscultation bilaterally. Absent: stridor, wheezes - Cardiovascular Cardiovascular exam: Present: regular rate and rhythm - GI/Abdominal GI/Abdominal exam: Present: normal bowel sounds, soft. Absent: ascites, tenderness, rebound - Extremities Exam Extremities exam: Present: full ROM, edema (2+-3+ pitting edema) - Neurological Exam Neurological exam: Present: alert, oriented X3 - Psychiatric Psychiatric exam: Present: normal affect, normal mood - Skin Skin exam: Present: normal color, warm, dry Results - Labs CBC & BMP: 05/01/17 15:58 05/01/17 15:58 Lab Results: I have reviewed the past 24 hour labs - Diagnostic Findings Procedure: Chest x-ray: report reviewed by me (findings which can be seen with progressive pneumonia with possible underlying chest masses. moderate right pleural effusion; cardiomegaly with permanent pacemaker) <Concepción Mejias - Last Filed: 05/02/17 08:07> History of Present Illness History of present illness: Mr. 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 He had both a diagnostic and therapeutic paracentensis and various tests were done including colonoscopy which showed multiple polyps with no source of cancer seen. Thyroid USS showed a 9 mm nodule within the right thyroid lobe demonstrates cystic and solid morphology with punctate echogenicities within suggesting possible calcification.The primary source of the cancer remained unknown.He was scheduled for an outpatient repeat paracentensis which he did two days ago and about 1800cc of fluid was drained. He also had an out patient PET scan prior to reporting to the ER. He was told to report back to the ER for treatment of MRSA in his blood. Plan IV antibiotics Consult Pulmonology, Nephrology Continue current care Exam - Constitutional Vitals: Period Temp Pulse Resp BP Sys/Hackett Pulse Ox Last 24 Hr 96.7 F-98.9 F 65-91 16-24 123-180/57-77 90-100 Results - Labs CBC & BMP: 05/02/17 07:10 05/02/17 07:10
[2017-05-01 17:39] LABS: Band Neutrophils 12 % (0-10); Lymphocytes 4 % (20-55); Metamyelocytes 1 %; Platelet Estimate Normal; Segmented Neutrophils 79 % (50-85); Total Cells Counted 100
[2017-05-01] MEDS ORDERED: SODIUM POLYSTYRENE SULFATE 15 GM/60 ML BOTTLE PO STA (18:14)
[2017-05-01] MEDS ORDERED: ONDANSETRON 4 MG/2 ML VIAL IV PRN (18:14)
[2017-05-01] MEDS ORDERED: POLYCARBOPHIL 625 MG TABLET PO PRN (18:14)
[2017-05-01] MEDS ORDERED: ICY HOT TOP PRN (18:14)
[2017-05-01] MEDS ORDERED: POLYVINYL ALCOHOL 1.4% OPH SOLN 15 ML BOTTLE BOTH EYES PRN (18:14)
[2017-05-01] MEDS ORDERED: HYDROCORTISONE RECTAL PRN (18:14)
[2017-05-01] MEDS ORDERED: VANCOMYCIN IV SCH (18:14)
[2017-05-01] MEDS ORDERED: PRAMOXINE RECTAL PRN (18:14)
[2017-05-01] MEDS ORDERED: ACETAMINOPHEN 325 MG TABLET PO PRN (18:14)
[2017-05-01] MEDS: methylPREDNISolone SOD SUC 40 MG/1 ML VIAL IV SCH (19:02)
[2017-05-01] MEDS: ENOXAPARIN 30 MG/0.3 ML SYRINGE SUBCUT SCH (19:02)
[2017-05-01] MEDS ORDERED: MEROPENEM 500 MG in SODIUM CHLORIDE 0.9% 100 ML IV SCH (21:00)
[2017-05-01] MEDS ORDERED: VANCOMYCIN INJ 1,000 MG in SODIUM CHLORIDE 0.9% 250 ML IV PRN (21:00)
[2017-05-01] MEDS: MELATONIN 3 MG TABLET PO SCH (21:12)
[2017-05-01] MEDS: ASPIRIN EC 81 MG TABLET PO SCH (21:12)
[2017-05-01] MEDS: GABAPENTIN 600 MG TABLET PO SCH (21:12)
[2017-05-01] MEDS: DONEPEZIL 10 MG TABLET PO SCH (21:13)
[2017-05-01] MEDS: CARVEDILOL 3.125 MG TABLET PO SCH (21:13)
[2017-05-01] MEDS: POLYETHYLENE GLYCOL POWDER 17 GM PACK PO SCH (21:15)
[2017-05-01] MEDS: FUROSEMIDE 20 MG/2 ML VIAL IV SCH (21:19)
[2017-05-01] MEDS: BUDESONIDE/FORMOTEROL 160-4.5 INHALER 6 GM INH SCH (21:23)
[2017-05-01] MEDS: MEROPENEM 500 MG in SODIUM CHLORIDE 0.9% 100 ML IV SCH (21:29)
[2017-05-02] MEDS: methylPREDNISolone SOD SUC 40 MG/1 ML VIAL IV SCH ×2 (05:56→18:04)
[2017-05-02 07:28] LABS: Hematocrit 37.4 VOL% (42.0-52.0); Hemoglobin 12.4 GM/DL (14.0-18.0); Mean Corpuscular HGB Conc 33.2 GM/DL (32-36); Mean Corpuscular Hemoglobin 30 PG (27-34); Mean Corpuscular Volume 89.9 FL (87-102); Platelet Count 189 T/CUMM (130-400); Red Blood Count 4.16 MC/CUMM (3.8-5.5); Red Cell Distribution Width 14.2 % (9.3-17.3)
[2017-05-02 07:29] LABS: Basophils # 0.1 10*3/uL (0.0-0.2); Basophils % 0.2 % (0.0-0.8); Immature Granulocytes % 3.2 %; Immature Granulocytes Absolute 1.33 #; Lymphocytes # 0.5 10*3/uL (1.4-4.0); Lymphocytes % 1.3 % (21.2-54.2); Mean Platelet Volume 10.4 FL (9.6-12.0); Monocytes # 1.2 10*3/uL (0.11-0.8); Monocytes % 2.9 % (1.7-12.7); Neutrophils # 37.9 10*3/uL (1.4-7.4); Neutrophils % 92.4 % (38.7-73.9)
[2017-05-02 07:48] LABS: Burr Cells Slight; Hypochromasia Slight; Lymphocytes 2 % (20-55); Ovalocytes Slight; Platelet Estimate Normal; Segmented Neutrophils 97 % (50-85); Total Cells Counted 100
[2017-05-02 07:49] LABS: Bilirubin,Total 0.9 MG/DL (0.2-1.0); Calcium 8.5 MG/DL (8.5-10.1); Osmolality,Calculated 305.4 MOS/KG (273-304); Potassium 5.1 MMOL/L (3.5-5.1); Total Protein 5.6 G/DL (6.4-8.3)
[2017-05-02] MEDS: MULTIVITAMIN (CENTRUM) TABLET PO SCH (08:41)
[2017-05-02] MEDS: CARVEDILOL 3.125 MG TABLET PO SCH ×2 (08:41→20:50)
[2017-05-02] MEDS: PANTOPRAZOLE 40 MG TABLET PO SCH (08:42)
[2017-05-02] MEDS: AMIODARONE 200 MG TABLET PO SCH (08:42)
[2017-05-02] MEDS: amLODIPine 10 MG TABLET PO SCH (08:42)
[2017-05-02] MEDS: MONTELUKAST 10 MG TABLET PO SCH (08:42)
[2017-05-02] MEDS: LORATADINE 10 MG TABLET PO SCH (08:42)
[2017-05-02] MEDS: MULTIVITAMIN (OCUVITE) TABLET PO SCH ×2 (08:42→20:50)
[2017-05-02] MEDS: POLYETHYLENE GLYCOL POWDER 17 GM PACK PO SCH ×2 (08:43→20:52)
[2017-05-02] MEDS: FUROSEMIDE 20 MG/2 ML VIAL IV SCH ×2 (08:43→21:39)
[2017-05-02] MEDS: OMEGA 3 ACID ETHYL ESTERS 1 GM CAPSULE PO SCH (08:43)
[2017-05-02] MEDS: BUDESONIDE/FORMOTEROL 160-4.5 INHALER 6 GM INH SCH ×2 (08:51→20:52)
[2017-05-02] MEDS: LUTEIN 40 MG PO SCH (08:59)
--- NOTE | 2017-05-02 09:56 | Post Interventional Procedure ---
Pre-op diagnosis: malignant right pleural effusion and dyspnea Post-op diagnosis: same Procedure: u/s guided thoracentesis Contrast: none Flouroscopy: none Radiologist: Jerod Hernandez Anesthesia: local Specimens: none sent Estimated blood loss: none Complications: none Condition: stable Description/Findings: 600 mL serosanguinous fluid removed and patient tolerated well Assessment and Plan - Time spent with patient Time spent with patient: Less than 30 minutes
--- NOTE | 2017-05-02 09:57 | XRay Report ---
Exam: XR chest post procedure Indication: Status post right thoracentesis Comparison study: 05/01/2017 radiograph Findings: Cardiac silhouette is enlarged, similar prior. Left chest pacemaker device and wire leads in similar position. Diffuse patchy areas of pulmonary infiltrates are essentially unchanged from prior. There is improved aeration within the right lung base with residual basilar opacities likely representing atelectasis and/or infiltrates versus soft tissue lesions in this patient with known metastatic disease. There is no pneumothorax. Impression: No pneumothorax following right thoracentesis with improved aeration in the lung bases although diffuse pulmonary opacities and residual basilar atelectasis versus infiltrates and/or soft tissue lesions remain present and similar prior. PROCEDURE INTERPRETED AT [facility] DEPARTMENT OF RADIOLOGY Final Report Signed by: Jerod Hernandez
--- NOTE | 2017-05-02 10:00 | Ultrasound Report ---
Exam: ULTRASOUND-GUIDED THORACENTESIS Clinical history: History of widespread metastatic disease, malignant right pleural effusion and dyspnea. Physician: Dr. Hernandez. Procedure: Informed consent was obtained prior to the procedure. A formal timeout was performed. Maximum sterile barrier technique was used. A right-sided pleural effusion was identified with ultrasound. The right posterior chest was prepped and draped in sterile fashion. 1% lidocaine was used to anesthetize the skin and subcutaneous tissues. Under sonographic guidance, a 6 Malay safety centesis needle and catheter were advanced into the effusion using trocar technique. A captured sonographic image demonstrates positioning of the needle within the targeted pleural fluid. The needle was removed. Through the catheter, we obtained a total of 600 cc of serosanguinous fluid. The catheter was removed. A bandage was placed at the puncture site. The patient tolerated the procedure well. Chest radiograph is pending. Impression: 1. Technically successful ultrasound guided right thoracentesis as detailed above. 2. Post procedure chest radiograph is pending. PROCEDURE INTERPRETED AT [facility] DEPARTMENT OF RADIOLOGY Final Report Signed by: Jerod Hernandez
[2017-05-02] MEDS: MEROPENEM 500 MG in SODIUM CHLORIDE 0.9% 100 ML IV SCH (10:11)
--- NOTE | 2017-05-02 10:42 | Pulmonology Consult Note ---
Assessment and Plan (1) Sepsis Status: Acute Assessment and plan: 2 positive blood cultures for MRSA. Needs antibiotics for this for at least 2 weeks. He does have a pacemaker in place which could become infected. Probably need to get infectious disease involved. Current Visit: Yes (2) Bilateral lower lobe lung mass Status: Acute Assessment and plan: These are likely primary lung cancers. The cytology markers from the pleural fluid went against this being primarily lung but the PET scan has not shown anything in the abdomen and I think the adenocarcinoma is likely primary lung. Current Visit: No (3) Malignant pleural effusion Status: Acute Assessment and plan: Right pleural effusion cytology earlier showed adenocarcinoma. Current Visit: No (4) Bacteremia Status: Acute Assessment and plan: 2 of 2 positive cultures from his blood for MRSA. Likely came from his lungs. Probably has a superimposed pneumonia. Needs at least 2 weeks of IV antibiotics. Will get infectious disease to check as well Current Visit: Yes History of Present Illness Chief complaint: Sepsis History of present illness: Mr. 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 He has had 2 thoracenteses. He had blood cultures drawn over the weekend while he was in the emergency room and had 2 of 2 positive blood cultures for methicillin- resistant staph aureus. He was brought in to get IV antibiotics. A PET scan done yesterday showed increased uptake in both the left upper lobe and right lower lobe lesions. There were no specific areas in the abdomen found. 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 Dr. Hatfield has been seeing him and we need to get him back in for follow-up. Patient has already had another thoracentesis this morning. I would have preferred to leave the pleural catheter in place so we could do a pleurodesis. However if the fluid recurs which it likely will we can do that the next time. Patient is very weak and it is questionable whether he will be an acceptable candidate for chemotherapy. The source of the MRSA sepsis is not clear. It could be from his lungs, right pleura, or possibly skin. Home Medications Medication Instructions Recorded Confirmed Type Amiodarone Tab [Cordarone Tab] 200 mg PO DAILY 12/22/15 05/01/17 History Donepezil [Aricept] 10 mg PO BEDTIME 12/22/15 05/01/17 History Famotidine 40 mg PO BEDTIME 12/22/15 05/01/17 History Gabapentin 300 mg PO BEDTIME 12/22/15 05/01/17 History Polyvinyl Alcohol 1.4% Oph Alva 1 drop BOTH EYES QID PRN 02/04/16 05/01/17 History [Artificial Tears Oph Soln] Budesonide/Formoterol 160-4.5 2 puff INH BID 10/05/16 05/01/17 History [Symbicort 160-4.5] Montelukast Sodium 10 mg PO DAILY 10/05/16 05/01/17 History Furosemide Tab [Lasix Tab] 40 mg PO DAILY 02/23/17 05/01/17 History Lutein 40 mg PO QAM 02/23/17 05/01/17 History Melatonin/Pyridoxine HCl (B6) 2 mg PO BEDTIME 02/23/17 05/01/17 History [Melatonin 3 mg Tablet] Polycarbophil [Fibercon] 625 mg PO DAILY PRN 02/23/17 05/01/17 History Aspirin [Ecotrin] 81 mg PO BEDTIME 04/17/17 05/01/17 History Ipratropium/Albuterol Sulfate 3 ml IH TID 04/17/17 05/01/17 History [Iprat-Albut 0.5-3(2.5) mg/3 ml] Loratadine Tab [Claritin Tab] 10 mg PO DAILY 04/17/17 05/01/17 History Mv-Min/FA/Vit K/Lycop/Lut/Zeax 1 each PO BID 04/17/17 05/01/17 History [Ocuvite Eye + Multi Tablet] Carvedilol [Coreg] 3.125 mg PO BID #60 tablet 04/27/17 05/01/17 Rx Polyethylene Glycol Powder 17 gm PO BID #7 04/27/17 05/01/17 Rx [Miralax] predniSONE [Prednisone] See Taper PO DIRECTED #30 04/27/17 05/01/17 Rx tab.ds.pk Acetaminophen Tab [Tylenol Tab] 325 mg PO Q4H PRN 04/30/17 05/01/17 History Hydrocortisone/Pramoxine 30 gm RECTAL QOTHER DAY PRN 04/30/17 05/01/17 History [Hydrocort-Pramoxine 1%-1% Cream] Menthol [Icy Hot Gel] 1 applic TOP TID PRN 04/30/17 05/01/17 History Multivitamin with Iron 1 each PO DAILY 04/30/17 05/01/17 History [Multivitamins with Iron] [place]-3 Fatty Acids/Fish Oil [Fish 1 each PO DAILY 04/30/17 05/01/17 History Oil 1,000 mg Softgel] amLODIPine [Norvasc] 5 mg PO DAILY 04/30/17 05/01/17 History Allergies Allergy/AdvReac Type Severity Reaction Status Date / Time No Known Allergies Allergy Verified 05/01/17 14:36 12 point system: reviewed and no additional remarkable complaints except as stated - Constitutional Constitutional: Present: fatigue, fever(s), malaise - Cardiovascular Cardiovascular: Present: chest pain at rest, dyspnea, dyspnea on exertion - Respiratory Respiratory: Present: cough, dyspnea, dyspnea on exertion - Musculoskeletal Musculoskeletal: Present: arthralgias, back pain, muscle weakness, myalgias Exam (Pulmonay) H&P - Constitutional Vitals: Period Temp Pulse Resp BP Sys/Hackett Pulse Ox Last 24 Hr 96.7 F-98.9 F 65-91 16-24 123-180/57-77 90-100 Exam: Patient is alert afebrile. Pupils react to light. Throat is clear. Neck supple no bruits. Chest reveals rales bilaterally and dullness at the right base. Heart normal rate rhythm no murmurs. Abdomen soft nontender no masses. Extremities no clubbing cyanosis edema. Calves nontender. Medical,Surgical,& Family Hx - Medical History Cardio: History of: Cardiac Dysrhythmia (SLOW HEART BEAT.), Hypertension ([place]. MEDICALLY), Pacemaker, Cardiovascular Problems (AFIB HAD CARDIOVERSION IN 2013.DR MAURER) Psychological: History of: Anxiety Disorders ([place]. MEDICALLY), Depression No history of: ADHD, Behavior Problems, Bipolar Disorder, Previous Suicide Attempt, Psychiatric/Substance Abuse Tx, Schizophrenia, Violent Behavior, Psychiatric Problems Neurology: No history of: Seizures HEENT: History of: Ear Problem (hard of hearing), Eye Problem (CATARACTS REMOVED FROM BOTH EYES W/ LENS IMPLANTS.), HEENT Problems (MACULAR DEGENERATION) Rheumatology: History of;: Rheumatological Problems (Arthritis) Respiratory: History of: COPD ([place]. INHALER AND NEBS.), Pneumonia, Respiratory Problems (Bronch with lung Bx) Renal: History of: Renal Failure (HX), Renal Problems (CKD) Genitourinary: History of: Problems (urinary stricture) Gastrointestinal: History of: GERD, GI Problems ([place] SAID HE HAD DIARRHEA AND IS ON LOMOTIL.) Musculoskeletal: History of: Back/Neck Problems, Degenerative Disk Disease No history of: Amputation Hematology: History of: Anemia - Surgical History Thoracic Surgeries: Patient denies;: Organ Transplant, Lobectomy Neurologic Surgeries: Patient denies: Neurologic Surgery HEENT Surgeries: Surgical HX of: Eye Surgery (CATARACT SURGERIES X 2.), Tonsilectomy & Adenoidectomy (60 YEARS AGO.) Patient denies: Thyroid Surgery Abdominal Surgeries: Surgical HX of: Abdominal Surgery, Appendectomy (JUN 2014. RUPTURE. SURGERY.), Colonoscopy (NEGATIVE. SEVERAL YEARS AGO.), EGD Reproductive Surgeries: Patient denies;: Genitourinary Surgery Orthopedic Surgeries: Patient denies;: Implanted Devices, Orthopedic Surgery, Spinal Surgery, Total Hip Replacement, Total Knee Replacement - Family History Family History: Reports;: Family Cancer (DAUGHTER HAS COLON CANCER, OVARIAN CANCER, LUNG CANCER BROTHERS.) Denies;: Family Anesthesia Reaction, Family Diabetes, Family Heart Disease, Family Hypertension, Family Psychiatric Problems, Family Stroke - Social History Smoking Status: Former smoker Frequency of Alcohol Use: None Type of Drug Use: None Results - Labs CBC & BMP: 05/02/17 07:10 05/02/17 07:10 Lab Results: I have reviewed the past 24 hour labs - Diagnostic Findings Procedure: Chest x-ray: image reviewed by me (Lesions in the left upper lobe and right lower lobe as well as right pleural effusion. Pacemaker in place.)
--- NOTE | 2017-05-02 13:54 | Hospitalist Progress Note ---
Assessment and Plan (1) MRSA (methicillin resistant Staphylococcus aureus) septicemia Status: Acute Assessment and plan: The patient has begun vancomycin and we will obtain infectious disease consultation. The patient continues on treatment for pneumonia as well as consideration of any anticancer regimen with the oncologist. Current Visit: Yes (2) Pneumonia Status: Acute Current Visit: No (3) CKD (chronic kidney disease) stage 4, GFR 15-29 ml/min Status: Chronic Current Visit: No (4) Bacteremia Status: Acute Current Visit: Yes Hospitalist: Subjective Interval history: The patient is admitted hospital with increasing shortness of breath. The patient had thoracentesis of her right malignant pleural effusion this morning and has less shortness of breath presently. We are treating him for MRSA bacteremia which is likely due to pneumonia. PET scan shows findings consistent with primary lung cancer. Exam - Constitutional Vitals: Period Temp Pulse Resp BP Sys/Hackett Pulse Ox Last 24 Hr 96.7 F-98.9 F 60-91 16-24 123-180/57-77 90-100 General appearance: mild distress - Respiratory Respiratory exam: Present: chest wall tenderness - Cardiovascular Cardiovascular exam: Present: regular rate and rhythm - GI/Abdominal GI/Abdominal exam: Present: normal bowel sounds Results - Labs CBC & BMP: 05/02/17 07:10 05/02/17 07:10 Lab Results: I have reviewed the past 24 hour labs
[2017-05-02] MEDS: ALBUTEROL/IPRATROPIUM 3 ML NEB RESP TX SCH ×2 (14:29→19:35)
--- NOTE | 2017-05-02 15:36 | Infectious Disease Consult ---
Assessment and Plan (1) MRSA (methicillin resistant Staphylococcus aureus) septicemia Status: Acute Assessment and plan: Suspect pulmonary source. Complicating the MRSA septicemia is presence of a pacemaker. Recommendations: 1. Agree with vancomycin, dosed intermittently to achieve a trough level of 15 -20 2. Echocardiogram to check for endocarditis 3. Repeat blood cultures tomorrow 4. Discontinue meropenem 5. Patient will need antibiotics for at least 4 weeks from date of negative blood cultures, longer if echocardiogram is positive Thank you very much for the consult. Will follow. Discussed with patient's son and [id number] at bedside Current Visit: Yes (2) Bilateral lower lobe lung mass Status: Acute Current Visit: No (3) COPD (chronic obstructive pulmonary disease) Status: Acute Current Visit: No (4) Malignant pleural effusion Status: Acute Current Visit: No (5) Pacemaker Status: Acute Assessment and plan: This complicates the MRSE bacteremia. We will evaluate for endocarditis. Current Visit: No (6) Pneumonia Status: Acute Assessment and plan: Suspect pneumonia as the source of the MRSA septicemia. Vancomycin therapy as above. Current Visit: No (7) CKD (chronic kidney disease) stage 4, GFR 15-29 ml/min Status: Chronic Assessment and plan: Monitor renal function closely and vancomycin. Current Visit: No History of Present Illness Chief complaint: MRSA septicemia History of present illness: Mr. Gardner is a 87 year old male who is relatively well until about 2 weeks ago when he presented to hospital with shortness of breath. 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 After 10 days in hospital the patient was discharged home middle of last week however he got progressively weak and malaise at home and ended up coming back to hospital 2 days ago it was found that the pleural fluid came back and say he had repeat thoracentesis in the emergency room and was sent home. Yesterday he was called back for admission because of blood cultures drawn on Monday came back positive 2 sets for MRSA. Patient has not had any fever but has been extremely weak and malaised with significant dyspnea much worse with exertion. He has not been able to walk since he was admitted to hospital 2 weeks ago. His appetite has been good throughout all this. Home Medications Medication Instructions Recorded Confirmed Type Amiodarone Tab [Cordarone Tab] 200 mg PO DAILY 12/22/15 05/01/17 History Donepezil [Aricept] 10 mg PO BEDTIME 12/22/15 05/01/17 History Famotidine 40 mg PO BEDTIME 12/22/15 05/01/17 History Gabapentin 300 mg PO BEDTIME 12/22/15 05/01/17 History Polyvinyl Alcohol 1.4% Oph Alva 1 drop BOTH EYES QID PRN 02/04/16 05/01/17 History [Artificial Tears Oph Soln] Budesonide/Formoterol 160-4.5 2 puff INH BID 10/05/16 05/01/17 History [Symbicort 160-4.5] Montelukast Sodium 10 mg PO DAILY 10/05/16 05/01/17 History Furosemide Tab [Lasix Tab] 40 mg PO DAILY 02/23/17 05/01/17 History Lutein 40 mg PO QAM 02/23/17 05/01/17 History Melatonin/Pyridoxine HCl (B6) 2 mg PO BEDTIME 02/23/17 05/01/17 History [Melatonin 3 mg Tablet] Polycarbophil [Fibercon] 625 mg PO DAILY PRN 02/23/17 05/01/17 History Aspirin [Ecotrin] 81 mg PO BEDTIME 04/17/17 05/01/17 History Ipratropium/Albuterol Sulfate 3 ml IH TID 04/17/17 05/01/17 History [Iprat-Albut 0.5-3(2.5) mg/3 ml] Loratadine Tab [Claritin Tab] 10 mg PO DAILY 04/17/17 05/01/17 History Mv-Min/FA/Vit K/Lycop/Lut/Zeax 1 each PO BID 04/17/17 05/01/17 History [Ocuvite Eye + Multi Tablet] Carvedilol [Coreg] 3.125 mg PO BID #60 tablet 04/27/17 05/01/17 Rx Polyethylene Glycol Powder 17 gm PO BID #7 04/27/17 05/01/17 Rx [Miralax] predniSONE [Prednisone] See Taper PO DIRECTED #30 04/27/17 05/01/17 Rx tab.ds.pk Acetaminophen Tab [Tylenol Tab] 325 mg PO Q4H PRN 04/30/17 05/01/17 History Hydrocortisone/Pramoxine 30 gm RECTAL QOTHER DAY PRN 04/30/17 05/01/17 History [Hydrocort-Pramoxine 1%-1% Cream] Menthol [Icy Hot Gel] 1 applic TOP TID PRN 04/30/17 05/01/17 History Multivitamin with Iron 1 each PO DAILY 04/30/17 05/01/17 History [Multivitamins with Iron] [place]-3 Fatty Acids/Fish Oil [Fish 1 each PO DAILY 04/30/17 05/01/17 History Oil 1,000 mg Softgel] amLODIPine [Norvasc] 5 mg PO DAILY 04/30/17 05/01/17 History Allergies Allergy/AdvReac Type Severity Reaction Status Date / Time No Known Allergies Allergy Verified 05/01/17 14:36 12 point system: reviewed and no additional remarkable complaints except as stated (Per HPI) Medical,Surgical,& Family Hx - Medical History Cardio: History of: Cardiac Dysrhythmia (SLOW HEART BEAT.), Hypertension ([place]. MEDICALLY), Pacemaker, Cardiovascular Problems (AFIB HAD CARDIOVERSION IN 2013.DR MAURER) Psychological: History of: Anxiety Disorders ([place]. MEDICALLY), Depression No history of: ADHD, Behavior Problems, Bipolar Disorder, Previous Suicide Attempt, Psychiatric/Substance Abuse Tx, Schizophrenia, Violent Behavior, Psychiatric Problems Neurology: No history of: Seizures HEENT: History of: Ear Problem (hard of hearing), Eye Problem (CATARACTS REMOVED FROM BOTH EYES W/ LENS IMPLANTS.), HEENT Problems (MACULAR DEGENERATION) Rheumatology: History of;: Rheumatological Problems (Arthritis) Respiratory: History of: COPD ([place]. INHALER AND NEBS.), Pneumonia, Respiratory Problems (Bronch with lung Bx) Renal: History of: Renal Failure (HX), Renal Problems (CKD) Genitourinary: History of: Problems (urinary stricture) Gastrointestinal: History of: GERD, GI Problems (VA SAID HE HAD DIARRHEA AND IS ON LOMOTIL.) Musculoskeletal: History of: Back/Neck Problems, Degenerative Disk Disease No history of: Amputation Hematology: History of: Anemia - Surgical History Thoracic Surgeries: Patient denies;: Organ Transplant, Lobectomy Neurologic Surgeries: Patient denies: Neurologic Surgery HEENT Surgeries: Surgical HX of: Eye Surgery (CATARACT SURGERIES X 2.), Tonsilectomy & Adenoidectomy (60 YEARS AGO.) Patient denies: Thyroid Surgery Abdominal Surgeries: Surgical HX of: Abdominal Surgery, Appendectomy (JUN 2014. RUPTURE. SURGERY.), Colonoscopy (NEGATIVE. SEVERAL YEARS AGO.), EGD Reproductive Surgeries: Patient denies;: Genitourinary Surgery Orthopedic Surgeries: Patient denies;: Implanted Devices, Orthopedic Surgery, Spinal Surgery, Total Hip Replacement, Total Knee Replacement - Family History Family History: Reports;: Family Cancer (DAUGHTER HAS COLON CANCER, OVARIAN CANCER, LUNG CANCER BROTHERS.) Denies;: Family Anesthesia Reaction, Family Diabetes, Family Heart Disease, Family Hypertension, Family Psychiatric Problems, Family Stroke - Social History Smoking Status: Former smoker Frequency of Alcohol Use: None Type of Drug Use: None Infectious Disease Exam H&P - Constitutional Vitals: Vital Signs Temp Pulse Resp BP Pulse Ox 97.9 F 60 16 150/62 91 L 05/02/17 07:51 05/02/17 14:29 05/02/17 14:29 05/02/17 13:24 05/02/17 14:29 Intake and Output 05/01/17 05/02/17 05/02/17 23:59 07:59 15:59 Intake Total 100 / 100 340 / 340 Output Total 500 / 500 350 / 350 1200 / 1200 Balance -500 / -500 -250 / -250 -860 / -860 Intake: IV 100 / 100 100 / 100 Merrem 500 mg In Ns 100 100 / 100 100 / 100 ml @ 200 mls/hr IV Q12H [facility] Rx#:[id number] Oral 240 / 240 Output: Urine 500 / 500 350 / 350 Paracentesis 600 / 600 Thoracentesis 600 / 600 Other: Voiding Method Urinal Urinal Urinal # Voids 1 2 # Bowel Movements 0 0 Weight 68.946 kg Exam: General: Patient chronically ill looking, sitting up on the side of the bed HEENT: Mucous membranes pink and moist, anicteric acyanotic, SOLOMON, somewhat diffuse erythema or cavity, diffuse shallow ulceration of the tongue during both sides Neck: Supple, no thyroid gland enlargement Respiratory system: Breath sounds vesicular, scattered crepitations bilaterally , no wheezes Cardiovascular: Pacemaker present left upper chest wall, normal S1 and S2, no murmurs appreciated Abdomen: Normal bowel sounds, soft nontender throughout, no organomegaly or mass Genitourinary: No suprapubic pain or bladder distention Extremities: Moderate bilateral ankle and foot edema Skin: No rash Reports - Labs CBC & BMP: 05/02/17 07:10 05/02/17 07:10 Labs: Laboratory Results - last 24 hr 05/01/17 05/01/17 05/01/17 15:58 15:58 15:58 WBC 52.4 H* RBC 4.38 Hgb 12.8 L Hct 39.2 L MCV 89.5 MCH 29 MCHC 32.7 RDW 14.2 Plt Count 206 MPV 10.1 Neut % (Auto) 89.6 H Lymph % (Auto) 2.4 L Weld % (Auto) 5.2 Eos % (Auto) 0.0 Baso % (Auto) 0.0 Neut # (Auto) 46.9 H Lymph # (Auto) 1.3 L Weld # (Auto) 2.7 H Eos # (Auto) 0.0 Baso # (Auto) 0.0 Total Counted 100 Immature Gran % 2.8 Nucleated RBC % 0.0 Immature Gran # 1.48 Segmented Neutrophils 79 Band Neutrophils 12 H Lymphocytes 4 L Monocytes 4 Metamyelocytes 1 Nucleated RBCs # 0.00 Platelet Estimate Normal Immature Plt Fraction 0.0 Hypochromasia Ovalocytes Sharyn Cells Morphology Comment INR 1.1 PT Patient/Control Mix 12.0 Circ Anticoag PTT 29.1 Sodium 139 Potassium 5.2 H Chloride 105 Carbon Dioxide 26 Anion Gap 13.2 BUN 78 H Creatinine 2.90 H GFR Calculation 19 BUN/Creatinine Ratio 26.00 H Glucose 106 Calculated Osmolality 299.5 Calcium 8.8 Total Bilirubin 0.60 AST 25 ALT 26 Alkaline Phosphatase 110 Total Protein 6.1 L Albumin 2.3 L Globulin 3.8 H Albumin/Globulin Ratio 0.6 L 05/02/17 05/02/17 07:10 07:10 WBC 41.0 H* RBC 4.16 Hgb 12.4 L Hct 37.4 L MCV 89.9 MCH 30 MCHC 33.2 RDW 14.2 Plt Count 189 MPV 10.4 Neut % (Auto) 92.4 H Lymph % (Auto) 1.3 L Weld % (Auto) 2.9 Eos % (Auto) 0.0 Baso % (Auto) 0.2 Neut # (Auto) 37.9 H Lymph # (Auto) 0.5 L Weld # (Auto) 1.2 H Eos # (Auto) 0.0 Baso # (Auto) 0.1 Total Counted 100 Immature Gran % 3.2 Nucleated RBC % 0.0 Immature Gran # 1.33 Segmented Neutrophils 97 H Band Neutrophils Lymphocytes 2 L Monocytes 1 L Metamyelocytes Nucleated RBCs # 0.00 Platelet Estimate Normal Immature Plt Fraction 0.0 Hypochromasia Slight Ovalocytes Slight Sharyn Cells Slight Morphology Comment INR PT Patient/Control Mix Circ Anticoag PTT Sodium 140 Potassium 5.1 Chloride 105 Carbon Dioxide 25 Anion Gap 15.1 H BUN 83 H Creatinine 3.00 H GFR Calculation 19 BUN/Creatinine Ratio 27.00 H Glucose 136 H Calculated Osmolality 305.4 H Calcium 8.5 Total Bilirubin 0.90 AST 20 ALT 22 Alkaline Phosphatase 103 Total Protein 5.6 L Albumin 2.0 L Globulin 3.6 H Albumin/Globulin Ratio 0.5 L - Reports Microbiology: Microbiology 05/01/17 16:09 Blood Culture - Preliminary Blood Gram Positive Cocci 05/01/17 15:58 Blood Culture - Preliminary Blood Gram Positive Cocci - Diagnostic Findings Procedure: Chest x-ray: image reviewed by me, report reviewed by me (Scattered opacities bilaterally, right pleural effusion), CT - chest: image reviewed by me , report reviewed by me (Bilateral lung masses with nodule in left lung, right pleural effusion)
[2017-05-02] MEDS: ENOXAPARIN 30 MG/0.3 ML SYRINGE SUBCUT SCH (18:04)
[2017-05-02] MEDS ORDERED: VANCOMYCIN INJ 1,750 MG in SODIUM CHLORIDE 0.9% 500 ML IV ONE (20:30)
[2017-05-02] MEDS: GABAPENTIN 600 MG TABLET PO SCH (20:50)
[2017-05-02] MEDS: DONEPEZIL 10 MG TABLET PO SCH (20:50)
[2017-05-02] MEDS: ASPIRIN EC 81 MG TABLET PO SCH (20:50)
[2017-05-02] MEDS: MELATONIN 3 MG TABLET PO SCH (20:50)
[2017-05-03] MEDS: ALBUTEROL/IPRATROPIUM 3 ML NEB RESP TX SCH ×4 (00:16→19:50)
[2017-05-03] MEDS: methylPREDNISolone SOD SUC 40 MG/1 ML VIAL IV SCH ×2 (06:00→18:31)
--- NOTE | 2017-05-03 07:34 | Oncology Consult Note ---
History of Present Illness History of present illness: Mr. Gardner is a 87 year old male who was recently discharged. He had undergone thoracentesis for a pleural effusion and cytologies were class V with the cytology very suggestive of pancreatic cancer. He underwent a detailed evaluation including MRCP and endoscopies and was not found to have any definite primary site. He came back to the hospital this last weekend because of recurrence of the effusion and increasing dyspnea. Cultures at that time grew MRSA and blood cultures are growing gram-positive cocci and he is being treated for presumed MRSA sepsis. The patient had a PET scan done before he was admitted and it was done on the day of this admission. The impression was: 1. Findings compatible with pulmonary metastatic disease are demonstrated with the most intense FDG avid activity located within the posterior left upper lung and right lower lung. 2. Right-sided pleural effusion is present that does appear to be some FDG avid activity metastatic pleural effusion is favored. 3. Asymmetric FDG avid activity involving the left glenohumeral joint is present. A small glenohumeral joint effusion is suggested on the left. It is difficult to exclude soft tissue in the region of the minimally widened glenohumeral joint. No focal osseous lesions of the proximal left shoulder clearly demonstrated. 4. Osseous metastatic lesions of the chest wall and possibly of the thoracic spine are not excluded. A single phase nuclear medicine bone scan may be useful for further characterization. 5. A large extravasation of dose is suggested within the left wrist and hand. Allergies: No known allergies - Review of System 12 point system: reviewed and no additional remarkable complaints except as stated - Review of System Constitutional: Absent: fever Respiratory: Present: other (shortness of breath). Absent: cough, respiratory distress Cardiovascular: Absent: chest pain Skin: Absent: rash Medical,Surgical,& Family Hx - Medical History Cardio: History of: Cardiac Dysrhythmia (SLOW HEART BEAT.), Hypertension ([place]. MEDICALLY), Pacemaker, Cardiovascular Problems (AFIB HAD CARDIOVERSION IN 2013.DR MAURER) Psychological: History of: Anxiety Disorders ([place]. MEDICALLY), Depression No history of: ADHD, Behavior Problems, Bipolar Disorder, Previous Suicide Attempt, Psychiatric/Substance Abuse Tx, Schizophrenia, Violent Behavior, Psychiatric Problems Neurology: No history of: Seizures HEENT: History of: Ear Problem (hard of hearing), Eye Problem (CATARACTS REMOVED FROM BOTH EYES W/ LENS IMPLANTS.), HEENT Problems (MACULAR DEGENERATION) Rheumatology: History of;: Rheumatological Problems (Arthritis) Respiratory: History of: COPD ([place]. INHALER AND NEBS.), Pneumonia, Respiratory Problems (Bronch with lung Bx) Renal: History of: Renal Failure (HX), Renal Problems (CKD) Genitourinary: History of: Problems (urinary stricture) Gastrointestinal: History of: GERD, GI Problems ([place] SAID HE HAD DIARRHEA AND IS ON LOMOTIL.) Musculoskeletal: History of: Back/Neck Problems, Degenerative Disk Disease No history of: Amputation Hematology: History of: Anemia - Surgical History Thoracic Surgeries: Patient denies;: Organ Transplant, Lobectomy Neurologic Surgeries: Patient denies: Neurologic Surgery HEENT Surgeries: Surgical HX of: Eye Surgery (CATARACT SURGERIES X 2.), Tonsilectomy & Adenoidectomy (60 YEARS AGO.) Patient denies: Thyroid Surgery Abdominal Surgeries: Surgical HX of: Appendectomy (JUN 2014. RUPTURE. SURGERY.) , Colonoscopy (NEGATIVE. SEVERAL YEARS AGO.), EGD Reproductive Surgeries: Patient denies;: Genitourinary Surgery Orthopedic Surgeries: Patient denies;: Implanted Devices, Orthopedic Surgery, Spinal Surgery, Total Hip Replacement, Total Knee Replacement - Family History Family History: Reports;: Family Cancer (DAUGHTER HAS COLON CANCER, OVARIAN CANCER, LUNG CANCER BROTHERS.) Denies;: Family Anesthesia Reaction, Family Diabetes, Family Heart Disease, Family Hypertension, Family Psychiatric Problems, Family Stroke - Social History Smoking Status: Former smoker physical examination: General: The patient appears chronically ill and debilitated. Eyes: His left eye follows me but his right eye does not. His vision appears to be impaired in the right eye if not absent. ENT: Full set of dentures. His oral mucosa and pharynx are normal. Neck: His trachea is midline. No masses Lungs: Breath sounds are decreased in both lungs, right greater than left. I hear no rubs, rales or rhonchi. Cardiovascular: His heart rhythm is regular without murmur, gallop or rub. There is no jugular venous distention, clubbing, cyanosis or edema. Abdomen: No masses or organomegaly. No significant tenderness. Musculoskeletal: Generalized muscle weakness without focal muscle atrophy or bone or joint deformity. Neurologic: He has visual impairment. Otherwise cranial nerves II through XII appear to be intact and there are no focal neurologic deficits. Nodes: There is no submandibular, submental, cervical, supraclavicular or axillary adenopathy. Psychiatric: The patient appears to be fully oriented to time, place, person and situation. Impression: I agree with Dr. Aparicio. 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 I am going to ask for PDL1 testing on this patient's cytology from his prior thoracentesis. This would be palliative chemotherapy for stage IV lung cancer and I will discuss this with the patient and his family. They were ambivalent at best about palliative chemotherapy. Thank you for consulting me. Home Medications Medication Instructions Recorded Confirmed Type Amiodarone Tab [Cordarone Tab] 200 mg PO DAILY 12/22/15 05/01/17 History Donepezil [Aricept] 10 mg PO BEDTIME 12/22/15 05/01/17 History Famotidine 40 mg PO BEDTIME 12/22/15 05/01/17 History Gabapentin 300 mg PO BEDTIME 12/22/15 05/01/17 History Polyvinyl Alcohol 1.4% Oph Al[place] 1 drop BOTH EYES QID PRN 02/04/16 05/01/17 History [Artificial Tears Oph Soln] Budesonide/Formoterol 160-4.5 2 puff INH BID 10/05/16 05/01/17 History [Symbicort 160-4.5] Montelukast Sodium 10 mg PO DAILY 10/05/16 05/01/17 History Furosemide Tab [Lasix Tab] 40 mg PO DAILY 02/23/17 05/01/17 History Lutein 40 mg PO QAM 02/23/17 05/01/17 History Melatonin/Pyridoxine HCl (B6) 2 mg PO BEDTIME 02/23/17 05/01/17 History [Melatonin 3 mg Tablet] Polycarbophil [Fibercon] 625 mg PO DAILY PRN 02/23/17 05/01/17 History Aspirin [Ecotrin] 81 mg PO BEDTIME 04/17/17 05/01/17 History Ipratropium/Albuterol Sulfate 3 ml IH TID 04/17/17 05/01/17 History [Iprat-Albut 0.5-3(2.5) mg/3 ml] Loratadine Tab [Claritin Tab] 10 mg PO DAILY 04/17/17 05/01/17 History Mv-Min/FA/Vit K/Lycop/Lut/Zeax 1 each PO BID 04/17/17 05/01/17 History [Ocuvite Eye + Multi Tablet] Carvedilol [Coreg] 3.125 mg PO BID #60 tablet 04/27/17 05/01/17 Rx Polyethylene Glycol Powder 17 gm PO BID #7 04/27/17 05/01/17 Rx [Miralax] predniSONE [Prednisone] See Taper PO DIRECTED #30 04/27/17 05/01/17 Rx tab.ds.pk Acetaminophen Tab [Tylenol Tab] 325 mg PO Q4H PRN 04/30/17 05/01/17 History Hydrocortisone/Pramoxine 30 gm RECTAL QOTHER DAY PRN 04/30/17 05/01/17 History [Hydrocort-Pramoxine 1%-1% Cream] Menthol [Icy Hot Gel] 1 applic TOP TID PRN 04/30/17 05/01/17 History Multivitamin with Iron 1 each PO DAILY 04/30/17 05/01/17 History [Multivitamins with Iron] [place]-3 Fatty Acids/Fish Oil [Fish 1 each PO DAILY 04/30/17 05/01/17 History Oil 1,000 mg Softgel] amLODIPine [Norvasc] 5 mg PO DAILY 04/30/17 05/01/17 History Allergies Allergy/AdvReac Type Severity Reaction Status Date / Time No Known Allergies Allergy Verified 05/01/17 14:36 Medical,Surgical,& Family Hx - Medical History Cardio: History of: Cardiac Dysrhythmia (SLOW HEART BEAT.), Hypertension ([place]. MEDICALLY), Pacemaker, Cardiovascular Problems (AFIB HAD CARDIOVERSION IN 2013.DR MAURER) Psychological: History of: Anxiety Disorders ([place]. MEDICALLY), Depression No history of: ADHD, Behavior Problems, Bipolar Disorder, Previous Suicide Attempt, Psychiatric/Substance Abuse Tx, Schizophrenia, Violent Behavior, Psychiatric Problems Neurology: No history of: Seizures HEENT: History of: Ear Problem (hard of hearing), Eye Problem (CATARACTS REMOVED FROM BOTH EYES W/ LENS IMPLANTS.), HEENT Problems (MACULAR DEGENERATION) Rheumatology: History of;: Rheumatological Problems (Arthritis) Respiratory: History of: COPD ([place]. INHALER AND NEBS.), Pneumonia, Respiratory Problems (Bronch with lung Bx) Renal: History of: Renal Failure (HX), Renal Problems (CKD) Genitourinary: History of: Problems (urinary stricture) Gastrointestinal: History of: GERD, GI Problems ([place] SAID HE HAD DIARRHEA AND IS ON LOMOTIL.) Musculoskeletal: History of: Back/Neck Problems, Degenerative Disk Disease No history of: Amputation Hematology: History of: Anemia - Surgical History Thoracic Surgeries: Patient denies;: Organ Transplant, Lobectomy Neurologic Surgeries: Patient denies: Neurologic Surgery HEENT Surgeries: Surgical HX of: Eye Surgery (CATARACT SURGERIES X 2.), Tonsilectomy & Adenoidectomy (60 YEARS AGO.) Patient denies: Thyroid Surgery Abdominal Surgeries: Surgical HX of: Abdominal Surgery, Appendectomy (JUN 2014. RUPTURE. SURGERY.), Colonoscopy (NEGATIVE. SEVERAL YEARS AGO.), EGD Reproductive Surgeries: Patient denies;: Genitourinary Surgery Orthopedic Surgeries: Patient denies;: Implanted Devices, Orthopedic Surgery, Spinal Surgery, Total Hip Replacement, Total Knee Replacement - Family History Family History: Reports;: Family Cancer (DAUGHTER HAS COLON CANCER, OVARIAN CANCER, LUNG CANCER BROTHERS.) Denies;: Family Anesthesia Reaction, Family Diabetes, Family Heart Disease, Family Hypertension, Family Psychiatric Problems, Family Stroke - Social History Smoking Status: Former smoker Frequency of Alcohol Use: None Type of Drug Use: None Exam - Constitutional Vitals: Period Temp Pulse Resp BP Sys/[place]ackett Pulse Ox Last 24 Hr 97.4 F-98.0 F 60-67 16-24 133-180/59-72 90-100 Results - Labs CBC & BMP: 05/02/17 07:10 05/02/17 07:10
--- NOTE | 2017-05-03 08:38 | Pulmonology Progress Note ---
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 He has masses in both lungs and a recurring right pleural effusion. Also apparently has bony involvement in his thoracic cage and left shoulder. He has returned with positive blood cultures with MRSA. He is going to need long-term IV antibiotics for that. When the right pleural effusion recurs, he will need a catheter placed and left in until we could do a pleurodesis. May require long-term drainage palliatively. Family is contemplating palliative chemotherapy at present. Certainly not ready for the patient to get it until his infection is controlled. Unfortunately the pleural fluid was discarded yesterday regularly cultured. We will need to get it cultured with the next drainage procedure. Chest x-ray is ordered for tomorrow. Probably should consider transfer to LT[facility] to complete his antibiotics. Exam (Progress Note) - Constitutional Vitals: Period Temp Pulse Resp BP Sys/[place]ett Pulse Ox Last 24 Hr 97.4 F-99.7 F 60-73 16-20 133-180/59-77 90-100 Exam: Patient's alert responsive. Vital signs normal. Pupils react to light. Throat is clear. Neck is supple no bruits. Chest reveals decreased breath sounds at the right base. He does have some rales on both sides. There are some dullness at the right base. Heart normal rate and rhythm no murmurs. He does have a pacemaker in place. Abdomen soft nontender bowel sounds present. Extremities no clubbing cyanosis or edema. Calves nontender. Results - Labs CBC & BMP: 05/02/17 07:10 05/02/17 07:10 Lab Results: I have reviewed the past 24 hour labs Assessment and Plan (1) Sepsis Status: Acute Assessment and plan: 2 positive blood cultures for MRSA. Needs antibiotics for this for at least 2 weeks. He does have a pacemaker in place which could become infected. Probably need to get infectious disease involved. 05/03/2017 MRSA sepsis. Likely came from lung. We need pleural fluid culture. Needs at least 4 weeks of IV antibiotics. Checking echo to rule out endocarditis. Current Visit: Yes (2) Bilateral lower lobe lung mass Status: Acute Assessment and plan: These are likely primary lung cancers. The cytology markers from the pleural fluid went against this being primarily lung but the PET scan has not shown anything in the abdomen and I think the adenocarcinoma is likely primary lung. Current Visit: No (3) Malignant pleural effusion Status: Acute Assessment and plan: Right pleural effusion cytology earlier showed adenocarcinoma. Date 91 repeat chest x-ray tomorrow. Will likely need pleural catheter and pleurodesis. Will need cultures from pleural fluid with next tap. Current Visit: No (4) Bacteremia Status: Acute Assessment and plan: 2 of 2 positive cultures from his blood for MRSA. Likely came from his lungs. Probably has a superimposed pneumonia. Needs at least 2 weeks of IV antibiotics. Will get infectious disease to check as well 05/03/2017 MRSA sepsis. IV antibiotics for 4 weeks at least. Echocardiogram pending. Current Visit: Yes
[2017-05-03] MEDS: MULTIVITAMIN (CENTRUM) TABLET PO SCH (10:03)
[2017-05-03] MEDS: FUROSEMIDE 20 MG/2 ML VIAL IV SCH ×2 (10:03→20:41)
[2017-05-03] MEDS: CARVEDILOL 3.125 MG TABLET PO SCH ×2 (10:03→20:34)
[2017-05-03] MEDS: MULTIVITAMIN (OCUVITE) TABLET PO SCH ×2 (10:03→20:35)
[2017-05-03] MEDS: PANTOPRAZOLE 40 MG TABLET PO SCH (10:04)
[2017-05-03] MEDS: POLYETHYLENE GLYCOL POWDER 17 GM PACK PO SCH ×2 (10:04→20:34)
[2017-05-03] MEDS: LORATADINE 10 MG TABLET PO SCH (10:04)
[2017-05-03] MEDS: amLODIPine 10 MG TABLET PO SCH (10:04)
[2017-05-03] MEDS: AMIODARONE 200 MG TABLET PO SCH (10:04)
[2017-05-03] MEDS: MONTELUKAST 10 MG TABLET PO SCH (10:04)
[2017-05-03] MEDS: LUTEIN 40 MG PO SCH (10:05)
[2017-05-03] MEDS: OMEGA 3 ACID ETHYL ESTERS 1 GM CAPSULE PO SCH (10:05)
[2017-05-03] MEDS: BUDESONIDE/FORMOTEROL 160-4.5 INHALER 6 GM INH SCH ×2 (10:10→20:43)
--- NOTE | 2017-05-03 11:37 | Infectious Disease Progress ---
Assessment and Plan (1) MRSA (methicillin resistant Staphylococcus aureus) septicemia Status: Acute Assessment and plan: Suspect pulmonary source. Complicating the MRSA septicemia is presence of a pacemaker. Recommendations: 1. Agree with vancomycin, dosed intermittently to achieve a trough level of 15 -20 [random level was very low yesterday] 2. Follow-up results of echocardiogram done today 3. Repeat blood cultures tomorrow [was going to do today however given the very low trough will wait until tomorrow] 4. Patient will need antibiotics for at least 4 weeks from date of negative blood cultures, longer if echocardiogram is positive Discussed with patient's son and [id number] at bedside Current Visit: Yes (2) Bilateral lower lobe lung mass Status: Acute Current Visit: No (3) COPD (chronic obstructive pulmonary disease) Status: Acute Current Visit: No (4) Malignant pleural effusion Status: Acute Current Visit: No (5) Pacemaker Status: Acute Assessment and plan: This complicates the MRSE bacteremia. Echo pending to ensure no endocarditis. Current Visit: No (6) Pneumonia Status: Acute Assessment and plan: Suspect pneumonia as the source of the MRSA septicemia. Unfortunately fluid fluid was not sent for culture. Vancomycin therapy as above. Current Visit: No (7) CKD (chronic kidney disease) stage 4, GFR 15-29 ml/min Status: Chronic Assessment and plan: Monitor renal function closely and vancomycin; so far it is relatively stable. Current Visit: No Infectious Disease - PN: Subj Interval history: Patient says he feels a little better today less dyspneic, he has not had fever. No nausea vomiting or diarrhea. Infectious Disease Exam (PN) - Constitutional Vitals: Temp Pulse Resp BP Pulse Ox 97.9 F 60 19 147/77 96 05/03/17 11:08 05/03/17 11:08 05/03/17 11:08 05/03/17 11:08 05/03/17 11:08 General appearance: mild distress Exam: General appearance: no acute distress but chronically ill looking - Eye Eye exam: Present: EOMI. no icterus Pupils: Present: SOLOMON - ENT ENT exam: no oral exudates - Respiratory Respiratory exam: vesicular BS, no crepitations or wheezes - Cardiovascular Cardiovascular exam: regular rate and rhythm, no murmurs - GI/Abdominal GI/Abdominal exam: normal bowel sounds, soft, non-tender, no organomegaly or mass - Extremities Exam Extremities exam: Mild bilateral lower extremity edema - Skin Skin exam: no rash Results - Labs CBC & BMP: 05/02/17 07:10 05/02/17 07:10 Lab Results: I have reviewed the past 24 hour labs
--- NOTE | 2017-05-03 13:54 | Hospitalist Progress Note ---
Assessment and Plan (1) MRSA (methicillin resistant Staphylococcus aureus) septicemia Status: Acute Assessment and plan: The patient has begun vancomycin and we will continue antibiotics as per infectious disease consultation. The patient continues on treatment for pneumonia as well as consideration of any anticancer regimen with the oncologist. Current Visit: Yes (2) Pneumonia Status: Acute Current Visit: No (3) CKD (chronic kidney disease) stage 4, GFR 15-29 ml/min Status: Chronic Current Visit: No (4) Bacteremia Status: Acute Current Visit: Yes Hospitalist: Subjective Interval history: The patient is resting comfortably in bed today. The patient states he has less generalized joint pain than he did yesterday. The patient has less fever than yesterday. Exam - Constitutional Vitals: Period Temp Pulse Resp BP Sys/Hackett Pulse Ox Last 24 Hr 97.4 F-99.7 F 60-73 16-19 144-155/65-77 90-100 Exam: Constitutional System: Mild distress. No tremulousness. Head: Normocephalic, atraumatic. Ears, Nose and Throat System: No evidence of Otitis or Mastoiditis. No epistaxis or discharge Eyes System: Pupils equal, round, and reactive. Extraocular muscles intact. Neck: Supple, without adenopathy, No jugular venous distention. No thyromegaly , neck mass, or prior surgery apparent. Respiratory System: Chest clear to auscultation. Cardiovascular System: Heart with regular rate and rhythm. No murmur. GI System: Abdomen soft, nontender. Normo active bowel sounds present. Musculoskeletal System: limbs with no pedal edema. Full distal pulses. Neurological System: No discernable sensory deficit. No aphasia Psychiatric System: Conversation is rational Results - Labs CBC & BMP: 05/02/17 07:10 05/02/17 07:10 Lab Results: I have reviewed the past 24 hour labs
[2017-05-03] MEDS: ENOXAPARIN 30 MG/0.3 ML SYRINGE SUBCUT SCH (18:30)
--- NOTE | 2017-05-03 19:50 | ECHO Report ---
Kelechi Gardner Exam Date: 05/03/2017 08:56 Referring Physician: Technologist: Abbey Bashir Age: 87 Ht (in): 68 Wt (lb): 152 Gender: M Exam Location: [facility] Echo Indications: COPD, elevated tumor maker, anemia, bilateral lobe mass, endocarditis, MRSA Sepsis, Bateremia, SOB BP: 144 / 70 HR: 60 Rhythm: sinus arrhythmia Technical Quality: IMPRESSIONS Normal left ventricular cavity size. Mild concentric left ventricular hypertrophy.Left ventricular ejection fraction is estimated at 55%. Normal right ventricular size and function. Pacemaker wires in the right-sided heart chambers. Mild biatrial enlargement. Mild mitral annular calcification, with thickened mitral valve, with mild regurgitation. Aortic valve sclerosis, without stenosis, with trace insufficiency. There is a 1.2 x 0.6 cm echogenic, nonmobile mass in the AMC region. Although the location and appearance is not typical for endocarditis, in context of high-risk bacteremia this will need to be considered. Consider JEFFREY, if clinically indicated. MEASUREMENTS (Male / Female) Normal Values 2D ECHO LV Diastolic Diameter PLAX 4.7 cm 4.2 - 5.9 / 3.9 - 5.3 cm LV Systolic Diameter PLAX 3.6 cm LV Fractional Shortening PLAX 23.3 % IVS Diastolic Thickness 1.1 cm 0.6 - 1.0 / 0.6 - 0.9 cm LVPW Diastolic Thickness 1.2 cm 0.6 - 1.0 / 0.6 - 0.9 cm Aortic Root Diameter 2.7 cm LA Systolic Diameter LX 3.2 cm 3.0 - 4.0 / 2.7 - 3.8 cm DOPPLER TR Peak Velocity 247.0 cm/s TR Peak Gradient 24.4 mmHg FINDINGS Left Ventricle Normal left ventricular cavity size. Mild concentric left ventricular hypertrophy.Left ventricular ejection fraction is estimated at 55%. Unable to estimate diastolic function due to arrhythmia Right Ventricle Normal right ventricular size and function. Pacemaker wires in the right-sided heart chambers. Right Atrium The right atrium is mildly enlarged. Left Atrium The left atrium is mildly enlarged. Mitral Valve Mild mitral annular calcification, with thickened mitral valve, with mild regurgitation. Aortic Valve Aortic valve sclerosis, without stenosis, with trace insufficiency. There is a 1.2 x 0.6 cm echogenic mass in the AMC region. Tricuspid Valve Morphologically normal tricuspid valve. Trace tricuspid valve regurgitation. Tricuspid regurgitation velocities suggest a PAP of 24 mmHg + RAP. Pulmonic Valve Morphologically normal pulmonic valve. Trace pulmonary valve regurgitation. Pericardium No pericardial effusion. Aorta Normal size aortic root and proximal ascending aorta. Andrei Day (Electronically Signed) Final Date: 03 May 2017 19:49
[2017-05-03] MEDS: GABAPENTIN 600 MG TABLET PO SCH (20:34)
[2017-05-03] MEDS: DONEPEZIL 10 MG TABLET PO SCH (20:34)
[2017-05-03] MEDS: ASPIRIN EC 81 MG TABLET PO SCH (20:34)
[2017-05-03] MEDS: MELATONIN 3 MG TABLET PO SCH (20:34)
[2017-05-03] MEDS ORDERED: VANCOMYCIN INJ 1,000 MG in SODIUM CHLORIDE 0.9% 250 ML IV ONE (22:00)
[2017-05-04] MEDS: ALBUTEROL/IPRATROPIUM 3 ML NEB RESP TX SCH ×4 (01:38→20:17)
[2017-05-04 06:06] LABS: Calcium 8.8 MG/DL (8.5-10.1); Magnesium 2.8 MG/DL (1.8-2.4); Osmolality,Calculated 309.5 MOS/KG (273-304); Potassium 4.9 MMOL/L (3.5-5.1)
[2017-05-04] MEDS: methylPREDNISolone SOD SUC 40 MG/1 ML VIAL IV SCH ×2 (06:20→18:09)
--- NOTE | 2017-05-04 07:40 | Pulmonology Progress Note ---
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 He has masses in both lungs and a recurring right pleural effusion. Also apparently has bony involvement in his thoracic cage and left shoulder. He has returned with positive blood cultures with MRSA. He is going to need long-term IV antibiotics for that. When the right pleural effusion recurs, he will need a catheter placed and left in until we could do a pleurodesis. May require long-term drainage palliatively. Family is contemplating palliative chemotherapy at present. Certainly not ready for the patient to get it until his infection is controlled. Unfortunately the pleural fluid was discarded yesterday regularly cultured. We will need to get it cultured with the next drainage procedure. Chest x-ray is ordered for tomorrow. Probably should consider transfer to LTAC to complete his antibiotics. 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 He has masses in both lungs. 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 He has a recurrent right pleural effusion. Earlier it has shown positive cytology. He came in with MRSA sepsis. We still need culture from the right pleural fluid. The pleural effusion has recurred and he needs to have a pleurodesis. Will ask interventional radiology to place a pigtail catheter and leave it in place. I will do a pleurodesis tomorrow most likely. We should look for him to go to LTAC to finish out a months worth of staph treatment. His echo showed possible endocarditis and a JEFFREY has been recommended. Exam (Progress Note) - Constitutional Vitals: Period Temp Pulse Resp BP Sys/Hackett Pulse Ox Last 24 Hr 96.1 F-97.9 F 60-99 16-19 144-160/65-90 96-98 Exam: Patient's alert responsive. Vital signs normal. Pupils react to light. Throat is clear. Neck is supple no bruits. Chest reveals decreased breath sounds at the right base. He does have some rales on both sides. There are some dullness at the right base. Heart normal rate and rhythm no murmurs. He does have a pacemaker in place. Abdomen soft nontender bowel sounds present. Extremities no clubbing cyanosis or edema. Calves nontender. Results - Labs CBC & BMP: 05/02/17 07:10 05/04/17 04:31 Lab Results: I have reviewed the past 24 hour labs - Diagnostic Findings Procedure: Chest x-ray: image reviewed by me (Recurrent right pleural effusion. Bilateral lung masses.) Assessment and Plan (1) Sepsis Status: Acute Assessment and plan: 2 positive blood cultures for MRSA. Needs antibiotics for this for at least 2 weeks. He does have a pacemaker in place which could become infected. Probably need to get infectious disease involved. 05/03/2017 MRSA sepsis. Likely came from lung. We need pleural fluid culture. Needs at least 4 weeks of IV antibiotics. Checking echo to rule out endocarditis. 05/04/2017 continuing vancomycin. Watch renal function and drank levels. Will need at least 4 weeks of antibiotics possibly more if the JEFFREY echo turns out to show endocarditis. Should look to go to [facility] to complete treatment. Current Visit: Yes (2) Bilateral lower lobe lung mass Status: Acute Assessment and plan: These are likely primary lung cancers. The cytology markers from the pleural fluid went against this being primarily lung but the PET scan has not shown anything in the abdomen and I think the adenocarcinoma is likely primary lung. 05/04/2017 these appear to be primary adenocarcinoma. May have had multifocal disease to begin with. Current Visit: No (3) Malignant pleural effusion Status: Acute Assessment and plan: Right pleural effusion cytology earlier showed adenocarcinoma. 05/03/17 repeat chest x-ray tomorrow. Will likely need pleural catheter and pleurodesis. Will need cultures from pleural fluid with next tap. 05/04/2017 needs pleurodesis as the effusion continues to recur just a few days after clearing it Current Visit: No (4) Bacteremia Status: Acute Assessment and plan: 2 of 2 positive cultures from his blood for MRSA. Likely came from his lungs. Probably has a superimposed pneumonia. Needs at least 2 weeks of IV antibiotics. Will get infectious disease to check as well 05/03/2017 MRSA sepsis. IV antibiotics for 4 weeks at least. Echocardiogram pending. 05/04/2017 continuing vancomycin. Watch renal function. Echo suggests endocarditis but is not definite. JEFFREY has been recommended by cardiology. Sounds reasonable. Current Visit: Yes
--- NOTE | 2017-05-04 08:03 | XRay Report ---
Portable chest Date: 05/04/2017 Clinical history: Recurrent right pleural effusion Comparison: 05/02/2017 Technique: Portable AP sitting chest Findings: Stable cardiomegaly and left subclavian atrioventricular pacemaker. Progressive parenchymal pathology with multiple noncalcified nodules. Larger small to moderate right pleural effusion. Stable mediastinum and osseous structures. Impression: Progressive bilateral infiltration/atelectasis with multiple noncalcified masses in patient with known pulmonary metastatic disease. Larger small to moderate right pleural effusion. Left subclavian ventricular pacemaker. PROCEDURE INTERPRETED AT [facility] DEPARTMENT OF RADIOLOGY Final Report Signed by: Dr. Candace Chilel
--- NOTE | 2017-05-04 09:11 | Oncology Progress Note ---
Oncology Subjective PN Interval history: Case discussed with Dr. Aparicio. Mr. Gardner will require a month of IV antibiotics and therefore does not qualify for any chemotherapy. I am not sure his family is in favor of it and I am not sure that the patient is in favor of it. He is 87 years old and they have all expressed the feeling that he would likely have more side effects than benefit from chemotherapy. I agree with this. I understand that he is probably going to be transferred to swing bed or long-term care facility fairly soon. I will be available to see him again if needed. Please just contact me as needed. Thanks. Exam - Constitutional Vitals: Period Temp Pulse Resp BP Sys/Hackett Pulse Ox Last 24 Hr 96.1 F-97.9 F 60-99 16-19 140-160/65-90 96-98 Results - Labs CBC & BMP: 05/02/17 07:10 05/04/17 04:31
[2017-05-04] MEDS: BUDESONIDE/FORMOTEROL 160-4.5 INHALER 6 GM INH SCH ×2 (09:39→20:58)
[2017-05-04] MEDS: amLODIPine 10 MG TABLET PO SCH (09:39)
[2017-05-04] MEDS: CARVEDILOL 3.125 MG TABLET PO SCH ×2 (09:39→20:59)
[2017-05-04] MEDS: FUROSEMIDE 20 MG/2 ML VIAL IV SCH ×2 (09:39→21:05)
[2017-05-04] MEDS: LORATADINE 10 MG TABLET PO SCH (10:00)
[2017-05-04] MEDS: LUTEIN 40 MG PO SCH (10:00)
[2017-05-04] MEDS: POLYETHYLENE GLYCOL POWDER 17 GM PACK PO SCH ×2 (10:00→21:00)
[2017-05-04] MEDS: PANTOPRAZOLE 40 MG TABLET PO SCH (10:00)
[2017-05-04] MEDS: MONTELUKAST 10 MG TABLET PO SCH (10:00)
[2017-05-04] MEDS: AMIODARONE 200 MG TABLET PO SCH (10:00)
[2017-05-04] MEDS: MULTIVITAMIN (OCUVITE) TABLET PO SCH ×2 (10:00→21:00)
[2017-05-04] MEDS: OMEGA 3 ACID ETHYL ESTERS 1 GM CAPSULE PO SCH (10:00)
[2017-05-04] MEDS: MULTIVITAMIN (CENTRUM) TABLET PO SCH (10:00)
--- NOTE | 2017-05-04 14:11 | Hospitalist Progress Note ---
Assessment and Plan (1) MRSA (methicillin resistant Staphylococcus aureus) septicemia Status: Acute Assessment and plan: The patient continues on antibiotics per infectious disease consultation. The patient has abnormal echocardiogram. The patient will continue on antibiotics for now. We will obtain further thoracentesis in place pigtail catheter in the right pleural space. We will obtain PICC line. Current Visit: Yes (2) Pneumonia Status: Acute Current Visit: No (3) CKD (chronic kidney disease) stage 4, GFR 15-29 ml/min Status: Chronic Current Visit: No (4) Bacteremia Status: Acute Current Visit: Yes Hospitalist: Subjective Interval history: The patient is awake alert. He does not complain of angina or shortness of breath. Patient has no abdominal pain. Exam - Constitutional Vitals: Period Temp Pulse Resp BP Sys/Hackett Pulse Ox Last 24 Hr 96.1 F-97.7 F 60-99 16-20 140-160/62-90 96-99 Exam: Constitutional System: Mild distress. No tremulousness. Head: Normocephalic, atraumatic. Ears, Nose and Throat System: No evidence of Otitis or Mastoiditis. No epistaxis or discharge Eyes System: Pupils equal, round, and reactive. Extraocular muscles intact. Neck: Supple, without adenopathy, No jugular venous distention. No thyromegaly , neck mass, or prior surgery apparent. Respiratory System: Chest clear to auscultation. Cardiovascular System: Heart with regular rate and rhythm. No murmur. GI System: Abdomen soft, nontender. Normo active bowel sounds present. Musculoskeletal System: limbs with no pedal edema. Full distal pulses. Neurological System: No discernable sensory deficit. No aphasia Psychiatric System: Conversation is rational Results - Labs CBC & BMP: 05/02/17 07:10 05/04/17 04:31 Lab Results: I have reviewed the past 24 hour labs
--- NOTE | 2017-05-04 15:36 | Infectious Disease Progress ---
Assessment and Plan (1) MRSA (methicillin resistant Staphylococcus aureus) septicemia Status: Acute Assessment and plan: The bacteremia still present in blood cultures from yesterday. TTE abnormal and given the prolonged bacteremia I am very suspicious of endocarditis. Recommendations: 1. Continue vancomycin, dosed intermittently to achieve a trough level of 15- 20 2. Repeat blood cultures again tomorrow 4. Patient will need antibiotics for 6 weeks from date of negative blood cultures, unless he decides to go on hospice given the metastatic cancer with recurring malignant pleural effusion Discussed with patient's son and [id number] at bedside Current Visit: Yes (2) Bilateral lower lobe lung mass Status: Acute Current Visit: No (3) COPD (chronic obstructive pulmonary disease) Status: Acute Current Visit: No (4) Malignant pleural effusion Status: Acute Current Visit: No (5) Pacemaker Status: Acute Assessment and plan: This complicates the MRSE bacteremia. Echo suggests endocarditis. Current Visit: No (6) Pneumonia Status: Acute Assessment and plan: Suspect pneumonia as the source of the MRSA septicemia. Unfortunately fluid fluid was not sent for culture. Vancomycin therapy as above. Current Visit: No (7) CKD (chronic kidney disease) stage 4, GFR 15-29 ml/min Status: Chronic Assessment and plan: Monitor renal function closely and vancomycin; so far it is relatively stable. Current Visit: No Infectious Disease - PN: Subj Interval history: Patient relatively stable her main complaint is generalized pain. He is having difficulty breathing and this was ago for a pleural catheter today. No fever. Infectious Disease Exam (PN) - Constitutional Vitals: Temp Pulse Resp BP Pulse Ox 97.5 F L 60 20 171/71 93 L 05/04/17 11:09 05/04/17 15:30 05/04/17 15:30 05/04/17 15:30 05/04/17 15:30 General appearance: mild distress Exam: General appearance: Frail, sitting in chair - Eye Eye exam: Present: EOMI. no icterus - ENT ENT exam: no oral exudates - Respiratory Respiratory exam: vesicular BS decreased in right lower lung field, no crepitations or wheezes - Cardiovascular Cardiovascular exam: regular rate and rhythm, no murmurs - GI/Abdominal GI/Abdominal exam: normal bowel sounds, soft, non-tender, no organomegaly or mass - Extremities Exam Extremities exam: Mild bilateral lower extremity edema - Skin Skin exam: no rash Results - Labs CBC & BMP: 05/02/17 07:10 05/04/17 04:31 Lab Results: I have reviewed the past 24 hour labs (Repeat blood cultures from yesterday both positive for gram-positive cocci) - Diagnostic Findings Procedure: Ultrasound: report reviewed by me (TTE noted with non-mobile mass)
[2017-05-04] MEDS ORDERED: FLUCONAZOLE 150 MG TABLET PO ONE (15:59)
--- NOTE | 2017-05-04 16:03 | XRay Report ---
XR chest post procedure Indication: Status post chest tube placement. Comparison: Chest x-ray 05/04/2017. Technique: Portable AP view of the chest. Findings: Interval insertion of right-sided percutaneous thoracostomy tube is demonstrated. No complication is suggested. There may be some interval decrease in overall amount pleural fluid present. Little change in the lung parenchyma is otherwise demonstrated with confluent airspace disease in the mid left lung and nodular airspace disease in left lung base that may in part reflect metastatic disease. Impression: 1. Little change in the chest status post placement of right-sided chest tube. 05/04/2017 3:59 PM PROCEDURE INTERPRETED AT [facility] DEPARTMENT OF RADIOLOGY Final Report Signed by: Dr. Trav Kirkland
[2017-05-04 16:32] LABS: Lymphocytes,Pleural Fluid 8 %; Neutrophils,Pleural Fluid 92 %
[2017-05-04 16:35] LABS: RBC,Pleural Fluid 11532 T/CUMM
--- NOTE | 2017-05-04 16:59 | Post Interventional Procedure ---
Pre-op diagnosis: probably malignant right pleural effusion Post-op diagnosis: same Procedure: u/s guided right chest tube placement Contrast: none Flouroscopy: none Radiologist: eJrod Hernandez Anesthesia: local Specimens: other (pleural fluid samples sent for analysis as requested) Estimated blood loss: minimal (5 mL) Complications: none Condition: stable Description/Findings: loculated right pleural effusion seen on U/s and access with 19 ga single wall needle - 8 Fr pigtail placement done and position confirmed with post procedure CXR Assessment and Plan - Time spent with patient Time spent with patient: Less than 30 minutes
--- NOTE | 2017-05-04 17:05 | Ultrasound Report ---
US thoracentesis w tube place Chest tube placement with ultrasound guidance Ultrasound of the chest Clinical Information: 87-year-old male with probable malignant recurrent right pleural effusion. Pulmonary has requested pigtail chest tube placement for drainage and probable pleurodesis. Physician[s]: Dr. Hernandez Total number of images for the procedure: 2 Procedure: The patient was advised of the benefits, risks, and alternatives of the procedure and informed consent was obtained. A time out was performed with verification of the patient's name, MRN, site of procedure, and type of procedure to be performed. The patient was positioned in the supine position on the stretcher. The site was prepped and draped in the usual sterile fashion. Local anesthesia only was used for the procedure. Ultrasound of the right posterior chest was performed demonstrating partially loculated moderate pleural effusion. The area was anesthetized using 1% lidocaine. Under ultrasound guidance a 19 G single wall needle was advanced into the pleural space. There was return of serous fluid. An Amplatz wire was advanced into the pleural space. An 8 Czech Skater all-purpose pigtail drainage catheter was advanced over the wire and coiled within the pleural space. The pigtail was locked in position and sutured to the skin using Percu-Stay device. A sterile dressing was applied. The chest tube was connected to a standard suction drainage bag. The patient tolerated the procedure well and was returned to the inpatient room in in stable condition. EBL: < 5 mL. Complications: None. Conclusion: Successful placement of an 8 Czech pigtail catheter into the posterior right pleural space. PROCEDURE INTERPRETED AT [facility] DEPARTMENT OF RADIOLOGY Final Report Signed by: Jerod Hernandez
[2017-05-04] MEDS: ENOXAPARIN 30 MG/0.3 ML SYRINGE SUBCUT SCH (18:10)
[2017-05-04] MEDS: NYSTATIN 500,000 UNIT/5 ML UDCUP SWISH/SWAL SCH ×2 (18:12→21:00)
[2017-05-04] MEDS: GABAPENTIN 600 MG TABLET PO SCH (20:59)
[2017-05-04] MEDS: DONEPEZIL 10 MG TABLET PO SCH (20:59)
[2017-05-04] MEDS: ASPIRIN EC 81 MG TABLET PO SCH (21:00)
[2017-05-04] MEDS: MELATONIN 3 MG TABLET PO SCH (21:02)
[2017-05-05] MEDS: ALBUTEROL/IPRATROPIUM 3 ML NEB RESP TX SCH ×3 (01:29→13:42)
[2017-05-05 05:46] LABS: Calcium 8.8 MG/DL (8.5-10.1); Magnesium 2.7 MG/DL (1.8-2.4); Osmolality,Calculated 311.7 MOS/KG (273-304); Potassium 4.8 MMOL/L (3.5-5.1)
[2017-05-05] MEDS: methylPREDNISolone SOD SUC 40 MG/1 ML VIAL IV SCH (05:47)
[2017-05-05] MEDS ORDERED: DOXYCYCLINE HYCLATE 100 MG CAPSULE PO ONE (07:00)
[2017-05-05] MEDS ORDERED: LIDOCAINE 2% 20 ML VIAL MISC INJ ONE (07:00)
--- NOTE | 2017-05-05 08:51 | Pulmonology Progress Note ---
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 He has masses in both lungs and a recurring right pleural effusion. Also apparently has bony involvement in his thoracic cage and left shoulder. He has returned with positive blood cultures with MRSA. He is going to need long-term IV antibiotics for that. When the right pleural effusion recurs, he will need a catheter placed and left in until we could do a pleurodesis. May require long-term drainage palliatively. Family is contemplating palliative chemotherapy at present. Certainly not ready for the patient to get it until his infection is controlled. Unfortunately the pleural fluid was discarded yesterday regularly cultured. We will need to get it cultured with the next drainage procedure. Chest x-ray is ordered for tomorrow. Probably should consider transfer to LTAC to complete his antibiotics. 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 He has masses in both lungs. 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 He has a recurrent right pleural effusion. Earlier it has shown positive cytology. He came in with MRSA sepsis. We still need culture from the right pleural fluid. The pleural effusion has recurred and he needs to have a pleurodesis. Will ask interventional radiology to place a pigtail catheter and leave it in place. I will do a pleurodesis tomorrow most likely. We should look for him to go to LTAC to finish out a months worth of staph treatment. His echo showed possible endocarditis and a JEFFREY has been recommended. 05/05/2017 patient had right pleural catheter placed yesterday. He has 450 mL in the chest tube bottle this morning. He is feeling better and his chest x- ray does look a little better. I decided to go ahead with pleurodesis this morning. In addition he is going to need at least 5 more weeks of IV antibiotics for MRSA bacteremia. Exam (Progress Note) - Constitutional Vitals: Period Temp Pulse Resp BP Sys/Hackett Pulse Ox Last 24 Hr 96.8 F-98.0 F 59-94 16-22 140-176/62-89 92-98 Exam: Patient's alert responsive. Vital signs normal. Pupils react to light. Throat is clear. Neck is supple no bruits. Chest reveals decreased breath sounds at the right base. He does have some rales on both sides. There are some dullness at the right base. Has right pleural catheter in place. Heart normal rate and rhythm no murmurs. He does have a pacemaker in place. Abdomen soft nontender bowel sounds present. Extremities no clubbing cyanosis or edema. Calves nontender. Results - Labs CBC & BMP: 05/02/17 07:10 05/05/17 04:29 Lab Results: I have reviewed the past 24 hour labs - Diagnostic Findings Procedure: Chest x-ray: image reviewed by me (The right pleural effusion is less. Has masses in both lungs. Pleural catheter in good location.) Assessment and Plan (1) Sepsis Status: Acute Assessment and plan: 2 positive blood cultures for MRSA. Needs antibiotics for this for at least 2 weeks. He does have a pacemaker in place which could become infected. Probably need to get infectious disease involved. 05/03/2017 MRSA sepsis. Likely came from lung. We need pleural fluid culture. Needs at least 4 weeks of IV antibiotics. Checking echo to rule out endocarditis. 05/04/2017 continuing vancomycin. Watch renal function and drank levels. Will need at least 4 weeks of antibiotics possibly more if the JEFFREY echo turns out to show endocarditis. Should look to go to [facility] to complete treatment. 05/05/2017 echocardiogram suggested endocarditis. For that reason plans will be for 6 weeks total IV antibiotics for MRSA. He needs about 5 more weeks. Looking into transfer to [facility] to complete that Current Visit: Yes (2) Bilateral lower lobe lung mass Status: Acute Assessment and plan: These are likely primary lung cancers. The cytology markers from the pleural fluid went against this being primarily lung but the PET scan has not shown anything in the abdomen and I think the adenocarcinoma is likely primary lung. 05/04/2017 these appear to be primary adenocarcinoma. May have had multifocal disease to begin with. 05/05/17 felt to be primary lung adenocarcinoma. Current Visit: No (3) Malignant pleural effusion Status: Acute Assessment and plan: Right pleural effusion cytology earlier showed adenocarcinoma. 05/03/17 repeat chest x-ray tomorrow. Will likely need pleural catheter and pleurodesis. Will need cultures from pleural fluid with next tap. 05/04/2017 needs pleurodesis as the effusion continues to recur just a few days after clearing it 05/05/2017 has pleural catheter in place. I did a pleurodesis on him this morning. He used 300 mg of doxycycline. Current Visit: No (4) Bacteremia Status: Acute Assessment and plan: 2 of 2 positive cultures from his blood for MRSA. Likely came from his lungs. Probably has a superimposed pneumonia. Needs at least 2 weeks of IV antibiotics. Will get infectious disease to check as well 05/03/2017 MRSA sepsis. IV antibiotics for 4 weeks at least. Echocardiogram pending. 05/04/2017 continuing vancomycin. Watch renal function. Echo suggests endocarditis but is not definite. JEFFREY has been recommended by cardiology. Sounds reasonable. 05/05/17 needs about 5 more weeks of vancomycin. Needs renal function watch closely. Current Visit: Yes
--- NOTE | 2017-05-05 08:54 | Operative Note ---
Date of procedure: 05/05/17 (Pleurodesis right pleural space with doxycycline) Pre-op diagnosis: Malignant right pleural effusion, recurrent fluid Post-op diagnosis: same Procedure: After appropriate timeout to be sure we were dealing with Kelechi Gardner, the patient had been given an oral [place] for preoperative pain management. We disconnected his pleural catheter and placed 10 mL of 2% Xylocaine in the catheter. This was followed by 50 cc of D5W that had 300 mg of doxycycline dissolved in it. This was placed in the pleural catheter behind the Xylocaine. We then flushed with 30 mL of air. The catheter was clamped. It will remain clamped for 2 hours. We will then unclamp it and resume a low suction from his chest tube. Procedure was tolerated well with only some mild burning. Anesthesia: local Surgeon / Physician: Oscar Aparicio Estimated blood loss: none Specimens: none sent Condition: stable Disposition: floor Results - Labs CBC & BMP: 05/02/17 07:10 05/05/17 04:29 Discharge Plan - Discharge Medications No Action Gabapentin 300 mg PO BEDTIME Famotidine 40 mg PO BEDTIME Donepezil [Aricept] 10 mg PO BEDTIME Amiodarone Tab [Cordarone Tab] 200 mg PO DAILY Polyvinyl Alcohol 1.4% Oph Alva [Artificial Tears Oph Soln] 1 drop BOTH EYES QID PRN PRN Reason: Dry Eyes Montelukast Sodium 10 mg PO DAILY Polycarbophil [Fibercon] 625 mg PO DAILY PRN PRN Reason: Constipation Lutein 40 mg PO QAM Ipratropium/Albuterol Sulfate [Iprat-Albut 0.5-3(2.5) mg/3 ml] 3 ml IH TID Aspirin [Ecotrin] 81 mg PO BEDTIME Mv-Min/FA/Vit K/Lycop/Lut/Zeax [Ocuvite Eye + Multi Tablet] 1 each PO BID Polyethylene Glycol Powder [Miralax] 17 gm PO BID #7 [place]-3 Fatty Acids/Fish Oil [Fish Oil 1,000 mg Softgel] 1 each PO DAILY Multivitamin with Iron [Multivitamins with Iron] 1 each PO DAILY amLODIPine [Norvasc] 5 mg PO DAILY Acetaminophen Tab [Tylenol Tab] 325 mg PO Q4H PRN PRN Reason: Pain Menthol [Icy Hot Gel] 1 applic TOP TID PRN PRN Reason: Pain Hydrocortisone/Pramoxine [Hydrocort-Pramoxine 1%-1% Cream] 30 gm RECTAL QOTHER DAY PRN PRN Reason: Hemorrhoids Budesonide/Formoterol 160-4.5 [Symbicort 160-4.5] 2 puff INH BID Melatonin/Pyridoxine HCl (B6) [Melatonin 3 mg Tablet] 2 mg PO BEDTIME Furosemide Tab [Lasix Tab] 40 mg PO DAILY Loratadine Tab [Claritin Tab] 10 mg PO DAILY predniSONE [Prednisone] See Taper PO DIRECTED #30 tab.ds.pk Carvedilol [Coreg] 3.125 mg PO BID #60 tablet - Follow Up or Referral - Forms/Instructions
[2017-05-05] MEDS ORDERED: VANCOMYCIN INJ 1,000 MG in SODIUM CHLORIDE 0.9% 250 ML IV SCH (09:00)
[2017-05-05] MEDS: amLODIPine 10 MG TABLET PO SCH (09:24)
[2017-05-05] MEDS: POLYETHYLENE GLYCOL POWDER 17 GM PACK PO SCH (09:24)
[2017-05-05] MEDS: PANTOPRAZOLE 40 MG TABLET PO SCH (09:24)
[2017-05-05] MEDS: FUROSEMIDE 20 MG/2 ML VIAL IV SCH (09:25)
[2017-05-05] MEDS: CARVEDILOL 3.125 MG TABLET PO SCH (09:25)
[2017-05-05] MEDS: MONTELUKAST 10 MG TABLET PO SCH (09:26)
[2017-05-05] MEDS: MULTIVITAMIN (OCUVITE) TABLET PO SCH (09:26)
[2017-05-05] MEDS: AMIODARONE 200 MG TABLET PO SCH (09:26)
[2017-05-05] MEDS: OMEGA 3 ACID ETHYL ESTERS 1 GM CAPSULE PO SCH (09:26)
[2017-05-05] MEDS: MULTIVITAMIN (CENTRUM) TABLET PO SCH (09:26)
[2017-05-05] MEDS: LORATADINE 10 MG TABLET PO SCH (09:26)
[2017-05-05] MEDS: NYSTATIN 500,000 UNIT/5 ML UDCUP SWISH/SWAL SCH ×2 (09:27→13:44)
[2017-05-05] MEDS: LUTEIN 40 MG PO SCH (09:40)
[2017-05-05] MEDS: BUDESONIDE/FORMOTEROL 160-4.5 INHALER 6 GM INH SCH (10:57)
[2017-05-05 11:21] VITALS: BP 154/71
--- NOTE | 2017-05-05 11:41 | Discharge Summary ---
Hospital Course - Hospital Course Hospital Course: The patient was admitted to the hospital for shortness of breath. The patient had right pleural effusion and improved the shortness of breath after thoracentesis. Cytology of the fluid revealed malignancy due to lung cancer. The patient had pulmonary and oncology evaluations. The patient had a second thoracentesis and then a third procedure was performed to place a semipermanent pigtail catheter. On the date of discharge Dr. Aparicio performed pleurodesis on the right malignant pleural effusion. The patient's family was reluctant to consider systemic chemotherapy. The patient makes his own medical decisions and requested to continue with full CODE STATUS for now. The patient is a former smoker and was given 4 minutes tobacco avoidance education. The patient's medications were reconciled on the date of admission the date of discharge. On the date of discharge, chest revealed reduced breath sounds on the right and clear on the left heart had regular rate and rhythm and abdomen soft. Discharge time was 34 minutes and included coordination of care with the binder caser, psych coordinator, and oncologist. The patient received education and examination. - Time spent with patient Time with patient DS: Greater than 30 minutes Time spent discussing smoking cessation with patient: 3 to 10 minutes Diagnosis - Discharge Diagnosis (1) MRSA (methicillin resistant Staphylococcus aureus) septicemia Status: Acute (2) Pneumonia Status: Acute (3) CKD (chronic kidney disease) stage 4, GFR 15-29 ml/min Status: Chronic (4) Bacteremia Status: Acute Discharge Plan - Discharge Data Disposition: Disch/Xfer to Care Specialist Hos Condition at Discharge: Guarded Discharge Diet: heart healthy - Discharge Medications New HYDROcodone/ACETAMIN 5-325 [[place] 5-325] 1 tablet PO Q4H PRN #30 tablet PRN Reason: Pain Mild (1-3) Vancomycin Inj 1,000 mg IV Q36H vial Enoxaparin [Lovenox] 30 mg SUBCUT Q24H syringe Continue Gabapentin 300 mg PO BEDTIME Famotidine 40 mg PO BEDTIME Donepezil [Aricept] 10 mg PO BEDTIME Amiodarone Tab [Cordarone Tab] 200 mg PO DAILY Polyvinyl Alcohol 1.4% Oph Alva [Artificial Tears Oph Soln] 1 drop BOTH EYES QID PRN PRN Reason: Dry Eyes Montelukast Sodium 10 mg PO DAILY Polycarbophil [Fibercon] 625 mg PO DAILY PRN PRN Reason: Constipation Lutein 40 mg PO QAM Ipratropium/Albuterol Sulfate [Iprat-Albut 0.5-3(2.5) mg/3 ml] 3 ml IH TID Aspirin [Ecotrin] 81 mg PO BEDTIME Mv-Min/FA/Vit K/Lycop/Lut/Zeax [Ocuvite Eye + Multi Tablet] 1 each PO BID Polyethylene Glycol Powder [Miralax] 17 gm PO BID #7 [place]-3 Fatty Acids/Fish Oil [Fish Oil 1,000 mg Softgel] 1 each PO DAILY Multivitamin with Iron [Multivitamins with Iron] 1 each PO DAILY amLODIPine [Norvasc] 5 mg PO DAILY Acetaminophen Tab [Tylenol Tab] 325 mg PO Q4H PRN PRN Reason: Pain Menthol [Icy Hot Gel] 1 applic TOP TID PRN PRN Reason: Pain Hydrocortisone/Pramoxine [Hydrocort-Pramoxine 1%-1% Cream] 30 gm RECTAL QOTHER DAY PRN PRN Reason: Hemorrhoids Budesonide/Formoterol 160-4.5 [Symbicort 160-4.5] 2 puff INH BID Melatonin/Pyridoxine HCl (B6) [Melatonin 3 mg Tablet] 2 mg PO BEDTIME Furosemide Tab [Lasix Tab] 40 mg PO DAILY Loratadine Tab [Claritin Tab] 10 mg PO DAILY predniSONE [Prednisone] See Taper PO DIRECTED #30 tab.ds.pk Carvedilol [Coreg] 3.125 mg PO BID #60 tablet - Follow Up or Referral - Forms/Instructions Exam - Constitutional Vitals: Period Temp Pulse Resp BP Sys/Hackett Pulse Ox Last 24 Hr 96.8 F-98.0 F 59-94 16-22 140-176/65-89 92-98 Discharge Results Procedures and tests throughout hospitalization: Pending Orders 05/03/17 06:38 Blood Culture IN AM 05/04/17 04:31 Blood Culture IN AM 05/04/17 15:30 Body Fluid Cult and Gram Stain Routine 05/06/17 04:00 XR chest 1V portable IN AM Basic Metabolic Panel w/Mg IN AM 05/07/17 04:00 Basic Metabolic Panel w/Mg IN AM Labs on day of discharge: Labs from last 24 hours 05/05/17 05/05/17 05/04/17 04:29 04:29 15:30 Sodium 138 Potassium 4.8 Chloride 103 Carbon Dioxide 23 Anion Gap 16.8 H BUN 102 H Creatinine 2.80 H GFR Calculation 20 BUN/Creatinine Ratio 36.00 H Glucose 183 H Calculated Osmolality 311.7 H Calcium 8.8 Magnesium 2.7 H Pleural WBC 134 Pleural RBC [address] 100 Pleural Neutrophils 92 Pleural Lymphocytes 8 Random Vancomycin 17.5 Preliminary micro results at discharge 05/04/17 15:30 Body Fluid Culture - Preliminary Pleural Fluid No Growth at 12 hours. 05/04/17 04:31 Blood Culture - Preliminary Blood Gram Positive Cocci 05/04/17 04:31 Blood Culture - Preliminary Blood Gram Positive Cocci 05/03/17 06:38 Blood Culture - Preliminary Blood Gram Positive Cocci 05/03/17 06:38 Blood Culture - Preliminary Blood Gram Positive Cocci DS: Provider Date of admission: 05/01/17 16:50 Primary care physician: Sari Ferguson Attending physician on admission: Concepción Mejias MD Consults: 05/01/17 18:14 Consult to Physician [CONS] Routine Comment: Consulting Provider: Oscar Aparicio Consulting Provider Notified: Yes When should Consulting Provider be notified: In am Person Notified: dr. aparicio saw Date Notified: 05/02/17 Consult Notification Comment: Patient known to you Thank You. 05/02/17 10:04 Consult to Pharmacy [CONS] Routine Reason for Pharmacy Consult: Dose/Manage Vancomycin Comment: MRSA bacteremia Consult to Physician [CONS] Routine Comment: metastatic disease Consulting Provider: Memo Hatfield 05/02/17 10:45 Consult to Physician [CONS] Routine Comment: MRSA bacteremia, Ca, pacemaker, lung masses Consulting Provider: Amelie Raymond Consulting Provider Notified: Yes When should Consulting Provider be notified: Now Consult to Specialist Group: Infectious Disease When should Consulting Provider be notified: Now Person Notified: caryn gill Date Notified: 05/02/17 Time Notified: 11:19 05/02/17 17:14 Consult to Case Mgmt/Social Srvs [CONS] Routine Reason for Case Mgmt/Social Srvs: Home Health Consult Comment: Set up SN and Aid w/[facility] when D/C'd from hospital 05/03/17 08:40 Consult to Case Mgmt/Social Srvs [CONS] Routine Reason for Case Mgmt/Social Srvs: LTAC Consult Comment: will need prolonged antibx's. MRSA sepsis Discharging clinician: Jaden Del Cid MD
--- NOTE | 2017-05-05 12:32 | Infectious Disease Progress ---
Assessment and Plan (1) MRSA (methicillin resistant Staphylococcus aureus) septicemia Status: Acute Assessment and plan: The bacteremia has not cleared yet, it is quite prolonged. TTE abnormal and given the prolonged bacteremia I am very suspicious of endocarditis. Recommendations: 1. Continue vancomycin, dosed intermittently to achieve a trough level of 15- 20 2. Repeat blood cultures on Monday 4. Patient will need antibiotics for 6 weeks from date of negative blood cultures Discussed with patient's son and [id number] at bedside Current Visit: Yes (2) Bilateral lower lobe lung mass Status: Acute Current Visit: No (3) COPD (chronic obstructive pulmonary disease) Status: Acute Current Visit: No (4) Malignant pleural effusion Status: Acute Assessment and plan: Given the fluid analysis it is unlikely to be infected, not much white blood cells in the fluid. Current Visit: No (5) Pacemaker Status: Acute Assessment and plan: This complicates the MRSE bacteremia. Echo suggests endocarditis. Current Visit: No (6) Pneumonia Status: Acute Assessment and plan: I am now doubtful that the lungs are the source of the MRSA septicemia. It may be that the lung lesions represent malignancy rather than infection. The pleural fluid analysis was not consistent with infection/empyema. Current Visit: No (7) CKD (chronic kidney disease) stage 4, GFR 15-29 ml/min Status: Chronic Assessment and plan: Monitor renal function closely and vancomycin; so far it is relatively stable. Current Visit: No Infectious Disease - PN: Subj Interval history: Patient had a pleural catheter placed yesterday and pleurodesis done this morning. He is feeling relatively comfortable. He has not had fever. Main complaint is generalized body pain. Infectious Disease Exam (PN) - Constitutional Vitals: Temp Pulse Resp BP Pulse Ox 97.6 F 60 18 154/71 95 05/05/17 11:19 05/05/17 11:19 05/05/17 11:19 05/05/17 11:19 05/05/17 11:19 General appearance: mild distress Exam: General appearance: Frail, sitting on side of bed - Eye Eye exam: Present: EOMI. no icterus - ENT ENT exam: no oral exudates - Respiratory Respiratory exam: Right pleural catheter noted with bloody drainage, vesicular BS decreased in right lower lung field, no crepitations or wheezes - Cardiovascular Cardiovascular exam: regular rate and rhythm, no murmurs - GI/Abdominal GI/Abdominal exam: normal bowel sounds, soft, non-tender, no organomegaly or mass - Extremities Exam Extremities exam: Mild bilateral lower extremity edema - Skin Skin exam: no rash Results - Labs CBC & BMP: 05/02/17 07:10 05/05/17 04:29 Lab Results: I have reviewed the past 24 hour labs
== END 2017-05-05 15:30 | DRG 871 ==
LOC: N.ED 14:14 → N.EDINP 16:50 → SUATTDRO 16:50 → N.3E 17:50
PROVIDERS: ADMIT Internal Medicine; ATTEND Internal Medicine